=== PATIENT | female | born 1940 | race Caucasian/White ===

== ENCOUNTER 2020-04-30 11:14 | Day surgery (SDC) | payer MEDICARE, SELFPAY ==
--- NOTE | 2020-04-30 12:00 | RAD_ITS ---
CLINICAL HISTORY: Female, 80 years old. Lower back pain PROCEDURE: EPIDUROGRAM - Caudal block FLUOROSCOPY TIME (if supplied): (0:12) minutes. 2 Images. TECHNIQUE: Under fluoroscopic guidance using sterile technique and after infiltration of the skin and subcutis soft tissues with 10 mL lidocaine 1% a 22-gauge needle is introduced in the lumbar epidural space at L4-5, 1 mL of air injected in the epidural space to ensure needle position then a mixture containing 80 mg of Depo-Medrol mixed with 3 mL lidocaine 0.25% were injected in the lumbar epidural space. RAD/Fluor Guidance for Spine Inj IMPRESSION: Successful lumbar epidural steroid injection under fluoroscopic guidance. Electronically Signed: Debi Torres, at 12:47 EDT Tel , Service support ,
[2020-04-30 12:10] VITALS: BP 150/86; PULSE 93; RESP 16; TEMP 36.4; O2SAT 99; BMI 27.3
[2020-04-30] MEDS: Lactated Ringers 1,000 ML 100 ML IV (12:30)
[2020-04-30] MEDS: Bupivacaine 0.25% 30 ML Vial (12:40)
[2020-04-30] MEDS: 0.9% Normal Saline (Pres. free 10 ML Vial (12:40)
[2020-04-30] MEDS: MethylPREDNISolone Acetate 80 MG/ML Vial (12:40)
[2020-04-30 12:45] VITALS: BP 117/68; BP 150/86; PULSE 77; RESP 16; TEMP 37; O2SAT 97
[2020-04-30 12:50] VITALS: BP 117/68; BP 150/86; PULSE 75; RESP 16; O2SAT 97
[2020-04-30 12:55] VITALS: BP 139/71; BP 150/86; PULSE 77; RESP 16; O2SAT 97
[2020-04-30 13:00] VITALS: BP 134/77; BP 150/86; PULSE 66; RESP 16; O2SAT 99
[2020-04-30 13:20] VITALS: BP 150/86
--- NOTE | 2020-04-30 17:19 | OP.PCM_ITS ---
Report of Operation Date of Procedure: 04/30/20 Description of Surgical Findings:: PREOPERATIVE DIAGNOSIS: Lumbosacral radiculopathy, lumbosacral degenerative disc disease, lumbosacral spinal stenosis POSTOPERATIVE DIAGNOSIS: Lumbosacral radiculopathy, lumbosacral degenerative disc disease, lumbosacral spinal stenosis PROCEDURE PERFORMED: Diagnostic/therapeutic caudal epidural steroid injection. ANESTHESIA: MAC. BLOOD LOSS: Minimal. COMPLICATIONS: None. DESCRIPTION OF PROCEDURE: History and physical of today was reviewed. Risks and benefits of the procedure were explained. The patient understood and agreed to proceed. Informed consent was obtained. IV inserted per routine protocol. The patient was taken to the operating room and placed in the prone position with a pillow positioned underneath the abdomen. The lower back and tailbone area was prepped and draped in a sterile fashion using iodine x3. Under fluoroscopy guidance on a lateral view, the caudal space was identified. The skin and subcutaneous tissue was anesthetized with approximately 3 mL of 1% lidocaine using a 25-gauge regular needle. Under direct visualization with fluoroscopy, using a 22-gauge 3-1/2-inch spinal needle, the needle was advanced via the skin through the sacral hiatus. The tip of the needle was passed through the sacrococcygeal ligament and advanced to approximately S4 area. After negative aspiration of blood or CSF, a total of 3 mL of contrast was injected to confirm correct placement of the needle as well as cephalad spread. The spread was followed to approximately L5 area. After confirmation on AP as well as lateral view and repeated negative aspiration, a total of 15 mL of preservative-free 0.125% Marcaine with 80 mg of Depo-Medrol was injected easily. The needle was then removed intact. The patient experienced no sign or symptoms of intrathecal or intravascular injection. The patient experienced no paresthesia. The procedure was completed without any apparent difficulty or any complications. The patient appeared to tolerate it well. ASSESSMENT AND PLAN: This is a 80-year-old female with lumbosacral radiculopathy, lumbosacral degene rative disc disease, lumbosacral spinal stenosis status post diagnostic/therapeutic caudal epidural steroid injection, patient will continue her current medications, patient will follow approximately 2 weeks for reevaluation.
== END 2020-04-30 13:39 | disposition home or self-care (01) ==
LOC: SDC 11:20 → AC 11:36
PROVIDERS: Referring Provider Anesthesiology Pain Medicine; Visit Provider Anesthesiology Pain Medicine
PROC: 3E0S3BZ Introduction of Anesthetic Agent into Epidural Space, Percutaneous Approach (ICD-10-PCS; CPT 62282; principal; 2020-04-30 12:45)
DX: M47.27 Other spondylosis with radiculopathy, lumbosacral region (principal); M51.17 Intervertebral disc disorders with radiculopathy, lumbosacral region; M48.07 Spinal stenosis, lumbosacral region; I10 Essential (primary) hypertension; K58.9 Irritable bowel syndrome, unspecified; I25.10 Atherosclerotic heart disease of native coronary artery without angina pectoris; E78.00 Pure hypercholesterolemia, unspecified; Z78.0 Asymptomatic menopausal state; Z79.899 Other long term (current) drug therapy
CPT/HCPCS: 01992; 62323; 64483; 77003; J7120; J3490

== ENCOUNTER 2020-06-11 07:39 | Day surgery (SDC) | payer MEDICARE, SELFPAY ==
[2020-06-11 08:04] VITALS: BP 163/88; PULSE 82; RESP 16; TEMP 36.8; O2SAT 98; BMI 27.6
[2020-06-11] MEDS: Lactated Ringers 1,000 ML 100 ML IV (08:18)
--- NOTE | 2020-06-11 08:43 | RAD_ITS ---
PROCEDURE: Bilateral L3-S1 facet joint steroid injections. DATE OF EXAMINATION: 06/11/2020. INDICATION: Female, 80 years old. Chronic low back pain. FLUOROSCOPY TIME (if supplied): (27 seconds) minutes/seconds. 8 intraoperative images were obtained. Intraoperative imaging provided for bilateral L3-S1 facet steroid injections. RAD/L/S Spine w Bend Min 6 Vw IMPRESSION: Intraoperative imaging provided for bilateral L3-S1 facet steroid injections. Electronically Signed: Nehemias Gonzáles, at 9:23 EST , Service support ,
[2020-06-11] MEDS: MethylPREDNISolone Acetate 40 MG/ML Vial IM (08:49)
[2020-06-11] MEDS: Bupivacaine 0.25% 30 ML Vial (08:49)
[2020-06-11 08:59] VITALS: BP 163/88; BP 91/49; PULSE 72; RESP 16; TEMP 36.4; O2SAT 100
[2020-06-11 09:05] VITALS: BP 117/78; BP 163/88; PULSE 82; RESP 16; O2SAT 98
[2020-06-11 09:10] VITALS: BP 119/82; BP 163/88; PULSE 73; RESP 16; O2SAT 99
[2020-06-11 09:12] VITALS: BP 132/81; BP 163/88; PULSE 73; RESP 16; O2SAT 100
[2020-06-11 09:43] VITALS: BP 163/88
--- NOTE | 2020-06-11 11:59 | PCM.OPRPT ---
Report of Operation Date of Procedure: 06/11/20 Description of Surgical Findings:: PREOPERATIVE DIAGNOSIS: Lumbosacral spondylosis, lumbosacral degenerative disc disease, lumbar facet arthropathy POSTOPERATIVE DIAGNOSIS: Lumbosacral spondylosis, lumbosacral degenerative disc disease, lumbar facet arthropathy PROCEDURE PERFORMED: Bilateral lumbar facet steroid injection, L3, L4, L5, and S1. ANESTHESIA: MAC. BLOOD LOSS: Minimal. COMPLICATIONS: None. DESCRIPTION OF PROCEDURE: History and physical of today was reviewed. Risks and benefits of the procedure were explained. The patient understood and agreed to proceed. Informed consent was obtained. IV inserted per routine protocol. The patient was taken to the operating room and placed in the prone position with a pillow positioned underneath the abdomen. The right side of her lower back was prepped and draped in a sterile fashion using iodine x3. Under fluoroscopy on oblique view, the L3 through S1 vertebral bodies were visualized. The skin and subcutaneous tissue was anesthetized with approximately 5 mL of 1% lidocaine using a 25-gauge regular needle. Under direct visualization with fluoroscopy, at approximately 25-degree angle starting on the right L3, ending on the left L3, passing through the L4 and L5 bilaterally, using a 22-gauge 3-1/2-inch spinal needle, the needle was advanced via the skin. The tip of the needle was maneuvered and directed towards the superior medial gutter of the transverse process at the vicinity of the medial branch. Once tip of the needle was in contact with the bone, the needle was pulled approximately 2 mm off the bone. After negative aspiration of blood or CSF and confirmation on AP as well as oblique view, a total of 16 mL of preservative-free 0.25% Marcaine with 80 mg of Depo-Medrol was injected in divided doses between those 8 levels. The needles were then removed intact. The patient experienced no sign or symptoms of intrathecal or intravascular injection. The patient experienced no paresthesia. The procedure was completed without any apparent difficulty or any complications. The patient appeared to tolerate it well. ASSESSMENT AND PLAN: This is a 80 year-old female with lumbosacral spondylosis, lumbosacral degenerative disc disease, lumbar facet arthropathy status post bilateral lumbar facet steroid injection L3-S1, patient will continue her current medications, patient will follow in approximately 2 weeks for reevaluation.
== END 2020-06-11 09:51 | disposition home or self-care (01) ==
LOC: SDC 07:39 → AC 07:39
PROVIDERS: Referring Provider Anesthesiology Pain Medicine; Visit Provider Anesthesiology Pain Medicine
PROC: 3E0T3BZ Introduction of Anesthetic Agent into Peripheral Nerves and Plexi, Percutaneous Approach (ICD-10-PCS; CPT 64493; principal; 2020-06-11 09:10)
DX: M47.817 Spondylosis without myelopathy or radiculopathy, lumbosacral region (principal); M51.37 Other intervertebral disc degeneration, lumbosacral region; M46.96 Unspecified inflammatory spondylopathy, lumbar region; M48.07 Spinal stenosis, lumbosacral region; G89.29 Other chronic pain; I25.10 Atherosclerotic heart disease of native coronary artery without angina pectoris; I10 Essential (primary) hypertension; E78.00 Pure hypercholesterolemia, unspecified; K21.9 Gastro-esophageal reflux disease without esophagitis; K58.9 Irritable bowel syndrome, unspecified; Z79.899 Other long term (current) drug therapy
CPT/HCPCS: 64493; 64494; 64495; 64483; 72114; J7120

== ENCOUNTER 2020-07-30 08:43 | Day surgery (SDC) | payer MEDICARE, SELFPAY ==
[2020-07-30 09:11] VITALS: BP 149/81; PULSE 84; RESP 16; TEMP 37.1; O2SAT 100; BMI 27.8
[2020-07-30] MEDS: Lactated Ringers 1,000 ML 75 ML IV (09:48)
--- NOTE | 2020-07-30 10:00 | RAD_ITS ---
PROCEDURE: Bilateral L3 S1 facet joint injection. DATE OF EXAMINATION: 07/30/2020. INDICATION: Female, 80 years old. Chronic low back pain. FLUOROSCOPY TIME (if supplied): (17.6secs) . 8 intraoperative images were obtained. RAD/L/S Spine w Bend Min 6 Vw IMPRESSION: Intraoperative imaging was provided for bilateral L3 S1 facet joint block. Electronically Signed: Nehemias Gonzáles, at 12:32 EST , Service support ,
[2020-07-30] MEDS: MethylPREDNISolone Acetate 40 MG/ML Vial IM (10:28)
[2020-07-30] MEDS: Lidocaine 1% (5 ml sdv) 5 ML Vial (10:29)
[2020-07-30] MEDS: Bupivacaine 0.25% 30 ML Vial (10:29)
[2020-07-30 10:38] VITALS: BP 116/63; BP 149/81; PULSE 69; RESP 16; TEMP 36.4; O2SAT 99
[2020-07-30 10:43] VITALS: BP 120/59; BP 149/81; PULSE 73; RESP 16; O2SAT 100
[2020-07-30 10:48] VITALS: BP 127/62; BP 149/81; PULSE 69; RESP 16; O2SAT 99
[2020-07-30 10:53] VITALS: BP 126/58; BP 149/81; PULSE 64; RESP 16; TEMP 36.2; O2SAT 100
--- NOTE | 2020-07-30 10:56 | PCM.OPRPT ---
Report of Operation Date of Procedure: 07/30/20 Description of Surgical Findings:: PREOPERATIVE DIAGNOSIS: Lumbosacral spondylosis, lumbosacral degenerative disc disease, lumbar facet arthropathy POSTOPERATIVE DIAGNOSIS: Lumbosacral spondylosis, lumbosacral degenerative disc disease, lumbar facet arthropathy PROCEDURE PERFORMED: Bilateral lumbar facet steroid injection, L3, L4, L5, and S1. ANESTHESIA: MAC. BLOOD LOSS: Minimal. COMPLICATIONS: None. DESCRIPTION OF PROCEDURE: History and physical of today was reviewed. Risks and benefits of the procedure were explained. The patient understood and agreed to proceed. Informed consent was obtained. IV inserted per routine protocol. The patient was taken to the operating room and placed in the prone position with a pillow positioned underneath the abdomen. The right side of her lower back was prepped and draped in a sterile fashion using iodine x3. Under fluoroscopy on oblique view, the L3 through S1 vertebral bodies were visualized. The skin and subcutaneous tissue was anesthetized with approximately 5 mL of 1% lidocaine using a 25-gauge regular needle. Under direct visualization with fluoroscopy, at approximately 25-degree angle starting on the right L3, ending on the left L3, passing through the L4 and L5 bilaterally, using a 22-gauge 3-1/2-inch spinal needle, the needle was advanced via the skin. The tip of the needle was maneuvered and directed towards the superior medial gutter of the transverse process at the vicinity of the medial branch. Once tip of the needle was in contact with the bone, the needle was pulled approximately 2 mm off the bone. After negative aspiration of blood or CSF and confirmation on AP as well as oblique view, a total of 16 mL of preservative-free 0.25% Marcaine with 80 mg of Depo-Medrol was injected in divided doses between those 8 levels. The needles were then removed intact. The patient experienced no sign or symptoms of intrathecal or intravascular injection. The patient experienced no paresthesia. The procedure was completed without any apparent difficulty or any complications. The patient appeared to tolerate it well. ASSESSMENT AND PLAN: This is a 80 year-old female with lumbosacral spondylosis, lumbosacral degenerative disc disease, lumbar facet arthropathy status post bilateral lumbar facet steroid injection L3-S1, patient will continue her current medications, patient will follow in approximately 2 weeks for reevaluation.
[2020-07-30 11:15] VITALS: BP 149/81
== END 2020-07-30 11:31 | disposition home or self-care (01) ==
LOC: SDC 08:45 → AC 08:45
PROVIDERS: Referring Provider Anesthesiology Pain Medicine; Visit Provider Anesthesiology Pain Medicine
PROC: 3E0T3BZ Introduction of Anesthetic Agent into Peripheral Nerves and Plexi, Percutaneous Approach (ICD-10-PCS; CPT 64493; principal; 2020-07-30 09:55)
DX: M47.27 Other spondylosis with radiculopathy, lumbosacral region (principal); M51.17 Intervertebral disc disorders with radiculopathy, lumbosacral region; M48.07 Spinal stenosis, lumbosacral region; G89.29 Other chronic pain; I25.10 Atherosclerotic heart disease of native coronary artery without angina pectoris; I10 Essential (primary) hypertension; E78.00 Pure hypercholesterolemia, unspecified; K21.9 Gastro-esophageal reflux disease without esophagitis; K58.9 Irritable bowel syndrome, unspecified; Z79.899 Other long term (current) drug therapy
CPT/HCPCS: 64493; 64494; 64495; 64483; 72114; J7120

== ENCOUNTER 2020-08-24 12:18 | Outpatient (RCR) | payer MEDICARE, SELFPAY | END 2020-08-24 23:59 | LOC: IMMUN 12:18 | PROVIDERS: Visit Provider Family Medicine | DX: Z23 Encounter for immunization (principal) | CPT/HCPCS: 0011A; 0012A; 91301 ==

== ENCOUNTER 2020-08-27 07:08 | Day surgery (SDC) | payer MEDICARE, SELFPAY ==
[2020-08-27] VITALS (7 sets, daily range): BP systolic 108–162; BP diastolic 70–95; PULSE 63–92; RESP 16; TEMP 36.2–36.7; O2SAT 97–100; BMI 23.8
[2020-08-27] MEDS: Lactated Ringers 1,000 ML 100 ML IV (07:38)
[2020-08-27] MEDS: Bupivacaine 0.25% 30 ML Vial (08:24)
[2020-08-27] MEDS: MethylPREDNISolone Acetate 40 MG/ML Vial IM (08:24)
[2020-08-27] MEDS: Lidocaine 1% (20 ml mdv) 20 ML Vial (08:25)
--- NOTE | 2020-08-27 08:45 | RAD_ITS ---
STUDY: X-RAY - LUMBAR SPINE REASON FOR EXAM: Female, 80 years old. LUMBAR RFA L3-S1 TECHNIQUE: Four intraoperative view(s) of the lumbar spine were obtained. COMPARISON: None FINDINGS: Intraoperative imaging provided for right L3-S1 radiofrequency ablation. RAD/L/S Spine Min 4 Views IMPRESSION: Intraoperative imaging provided for right L3-S1 radiofrequency ablation. Electronically Signed: Nehemias Gonzáles MD at 9:33 EST , Service support ,
--- NOTE | 2020-08-27 10:12 | PCM.OPRPT ---
Report of Operation Date of Procedure: 08/27/20 Description of Surgical Findings:: PREOPERATIVE DIAGNOSIS: Lumbosacral spondylosis, lumbosacral degenerative disc disease, lumbar facet arthropathy POSTOPERATIVE DIAGNOSIS: Lumbosacral spondylosis, lumbosacral degenerative disc disease, lumbar facet arthropathy PROCEDURE PERFORMED: Right-sided lumbar radiofrequency ablation of the medial branch at L3, L4, L5, and S1. ANESTHESIA: MAC. BLOOD LOSS: Minimal. COMPLICATIONS: None. DESCRIPTION OF PROCEDURE: History and physical of today was reviewed. Risks and benefits of the procedure were explained. The patient understood and agreed to proceed. Informed consent was obtained. IV inserted per routine protocol. The patient was taken to the operating room and placed in the prone position with a pillow positioned underneath the abdomen. The right side of her lower back was prepped and draped in a sterile fashion using iodine x3. Under fluoroscopy guidance in an oblique view, the L3 through S1 vertebral bodies were visualized. The skin and subcutaneous tissue was anesthetized with approximately 10 mL of 1% lidocaine using a 25-gauge regular needle. Under direct visualization on fluoroscopy at approximately 25-degree angle, starting on the right L3, ending on the right S1, passing through the L4 and L5, using a 20-gauge 15-cm with a 10-mm curved active-tip radiofrequency ablation needle, the needle was passed through the skin. The tip of the needle was maneuvered and directed towards the superior medial gutter of the transverse process at the vicinity of the medial branch. Once the tip of the needle was in contact with the bone, the needle was pulled approximately 2 mm off the bone. The stylette of each needle was then removed. After negative aspiration of blood or CSF and confirmation on AP, oblique as well as lateral view, the radiofrequency ablation probe was then inserted at each level. Impedance was then recorded at L3 to be 232 ohm, at L4 to be 211 ohm, at L5 to be 227 ohm, and at S1 to be 314 ohm. Motor evoked potential was then initiated to 1.5 volt without any motor response at each corresponding level. The probe was then removed intact and a total of 6 mL of preservative-free 1% lidocaine was injected in divided doses between those four levels after negative aspiration of blood or CSF. The radiofrequency ablation probe was then reinserted. After confirmation on AP, oblique as well as lateral view, radiofrequency ablation was then initiated to 80 degree Celsius for 90 second at each level. Once concluded, the probe was then removed intact. A total of 6 mL of preservative-free 0.25% Marcaine with 40 mg of Depo-Medrol was injected in divided doses between those four levels. The needles were then removed intact. The patient experienced no sign or symptoms of intrathecal or intravascular injection. The patient experienced no paresthesia. The procedure was completed without any apparent difficulty or any complications. The patient appeared to tolerate it well. Sensory as well as motor exam was unchanged from prior to the procedure. ASSESSMENT AND PLAN: This is an 80-year-old female with lumbosacral spondylosis, lumbosacral degenerative disc disease, lumbar facet arthropathy status post right-sided lumbar radiofrequency ablation of the medial branch L3-S1, patient will continue her current medications, patient will follow in approximately 2 weeks for reevaluation.
== END 2020-08-27 09:41 | disposition home or self-care (01) ==
LOC: SDC 07:08 → AC 07:09
PROVIDERS: Referring Provider Anesthesiology Pain Medicine; Visit Provider Anesthesiology Pain Medicine
PROC: (CPT 64635; principal; 2020-08-27 08:25)
DX: M47.817 Spondylosis without myelopathy or radiculopathy, lumbosacral region (principal); M51.37 Other intervertebral disc degeneration, lumbosacral region; M46.96 Unspecified inflammatory spondylopathy, lumbar region; I25.10 Atherosclerotic heart disease of native coronary artery without angina pectoris; I10 Essential (primary) hypertension; E78.00 Pure hypercholesterolemia, unspecified; K21.9 Gastro-esophageal reflux disease without esophagitis; Z79.899 Other long term (current) drug therapy
CPT/HCPCS: 01992; 64635; 64636; 72110; 76000; J7120

== ENCOUNTER 2020-10-08 08:06 | Day surgery (SDC) | payer MEDICARE, SELFPAY ==
[2020-08-27 07:33] VITALS: BMI 23.8
[2020-10-08] VITALS (7 sets, daily range): BP systolic 117–153; BP diastolic 69–82; PULSE 58–76; RESP 16; TEMP 36.2–36.4; O2SAT 99–100; BMI 27.4
--- NOTE | 2020-10-08 09:28 | RAD_ITS ---
PROCEDURE: Radiofrequency ablation of the left L3-S1 levels. DATE OF EXAMINATION: 10/08/2020. INDICATION: Female, 80 years old. Chronic back pain. FLUOROSCOPY TIME (if supplied): (13 seconds) minutes/seconds. 7 intraoperative images were obtained. Intraoperative imaging provided for left L3 S1 facet joint radiofrequency ablation. RAD/Lumbar Spine 2 or 3 Views IMPRESSION: Intraoperative images are provided for left L3-S1 facet joint radiofrequency ablation. Electronically Signed: Nehemias Gonzáles MD at 13:51 EDT , Service support ,
[2020-10-08] MEDS: Lidocaine 1% (30 ml sdv) 30 ML Vial (09:38)
[2020-10-08] MEDS: Bupivacaine 0.25% 30 ML Vial (09:40)
[2020-10-08] MEDS: MethylPREDNISolone Acetate 80 MG/ML Vial (09:40)
--- NOTE | 2020-10-08 12:21 | PCM.OPRPT ---
Report of Operation Date of Procedure: 10/08/20 Description of Surgical Findings:: PREOPERATIVE DIAGNOSIS: Lumbosacral spondylosis, lumbosacral degenerative disc disease, lumbar facet arthropathy POSTOPERATIVE DIAGNOSIS: Lumbosacral spondylosis, lumbosacral degenerative disc disease, lumbar facet arthropathy PROCEDURE PERFORMED: Left-sided radiofrequency lumbar ablation of the medial branch at L3, L4, L5, and S1. ANESTHESIA: MAC. BLOOD LOSS: Minimal. COMPLICATIONS: None. DESCRIPTION OF PROCEDURE: History and physical of today was reviewed. Risks and benefits of the procedure were explained. The patient understood and agreed to proceed. Informed consent was obtained. IV inserted per routine protocol. The patient was taken to the operating room and placed in the prone position with a pillow positioned underneath the abdomen. The left side of her lower back was prepped and draped in a sterile fashion using iodine x3. Under fluoroscopy guidance in an oblique view, the L3 through S1 vertebral bodies were visualized. The skin and subcutaneous tissue was anesthetized with approximately 10 mL of 1% lidocaine using a 25-gauge regular needle. Under direct visualization on fluoroscopy at approximately 25-degree angle, starting on the left L3, ending on the left S1, passing through the L4 and L5, using a 20-gauge 15-cm with a 10-mm curved active-tip radiofrequency ablation needle, the needle was passed through the skin. The tip of the needle was maneuvered and directed towards the superior medial gutter of the transverse process at the vicinity of the medial branch. Once the tip of the needle was in contact with the bone, the needle was pulled approximately 2 mm off the bone. The stylette of each needle was then removed. After negative aspiration of blood or CSF and confirmation on AP, oblique as well as lateral view, the radiofrequency ablation probe was then inserted at each level. Impedance was then recorded at L3 to be 231 ohm, at L4 to be 229 ohm, at L5 to be 262 ohm, and at S1 to be 259 ohm. Motor evoked potential was then initiated to 1.5 volt without any motor response at each corresponding level. The probe was then removed intact and a total of 6 mL of preservative-free 1% lidocaine was injected in divided doses between those four levels after negative aspiration of blood or CSF. The radiofrequency ablation probe was then reinserted. After confirmation on AP, oblique as well as lateral view, radiofrequency ablation was then initiated to 80 degree Celsius for 90 second at each level. Once concluded, the probe was then removed intact. A total of 6 mL of preservative-free 0.25% Marcaine with 40 mg of Depo-Medrol was injected in divided doses between those four levels. The needles were then removed intact. The patient experienced no sign or symptoms of intrathecal or intravascular injection. The patient experienced no paresthesia. The procedure was completed without any apparent difficulty or any complications. The patient appeared to tolerate it well. Sensory as well as motor exam was unchanged from prior to the procedure. ASSESSMENT AND PLAN: This is a 80-year-old female with lumbosacral spondylosis, lumbosacral degenerative disc disease, lumbar facet arthropathy status post left-sided lumbar radiofrequency ablation of the medial branch L3-S1, patient will continue her current medications, patient will follow in approximately 2 weeks for reevaluation.
== END 2020-10-08 11:18 | disposition home or self-care (01) ==
LOC: SDC 08:07 → AC 08:07
PROVIDERS: Referring Provider Anesthesiology Pain Medicine; Visit Provider Anesthesiology Pain Medicine
PROC: (CPT 64635; principal; 2020-10-08 09:25)
DX: M51.17 Intervertebral disc disorders with radiculopathy, lumbosacral region (principal); M47.27 Other spondylosis with radiculopathy, lumbosacral region; M48.07 Spinal stenosis, lumbosacral region; M43.16 Spondylolisthesis, lumbar region; I25.10 Atherosclerotic heart disease of native coronary artery without angina pectoris; I10 Essential (primary) hypertension; K21.9 Gastro-esophageal reflux disease without esophagitis; E78.00 Pure hypercholesterolemia, unspecified; Z79.899 Other long term (current) drug therapy
CPT/HCPCS: 64635; 64636; 72100; 76000; J7120

== ENCOUNTER 2022-01-13 05:46 | Day surgery (SDC) | payer MEDICARE, SELFPAY ==
[2022-01-13] VITALS (7 sets, daily range): BP systolic 109–147; BP diastolic 61–86; PULSE 62–83; RESP 16; TEMP 36–36.6; O2SAT 96–100; BMI 26.2
[2022-01-13] MEDS: Lactated Ringers 1,000 ML 15 ML IV (06:48)
--- NOTE | 2022-01-13 07:35 | RAD_ITS ---
EXAM: XR LUMBOSACRAL SPINE, 2 OR 3 VIEWS CLINICAL INDICATION: RADIO FREQ ABLATION L4-S1, RIGHT -- 12.6 SEC -- 3.9 MGY TECHNIQUE: Frontal and lateral views of the lumbar spine and sacrum. This report was created using [employer] report [employer] technology. COMPARISON: None. FINDINGS: Total of 9 fluoroscopic views of the lumbar spine obtained during localization for spinal injection Total fluoroscopy 12.6 seconds. Radiation dose 3.9 MGY. RAD/Lumbar Spine 2 or 3 Views IMPRESSION: As above. Electronically Signed: Mikey Agrawal MD at 16:52 EDT ,
[2022-01-13] MEDS: Bupivacaine Mpf 0.5% 30 ML VIAL (07:42)
[2022-01-13] MEDS: Lidocaine 1% (50 ml mdv) 50 ML Vial (07:42)
[2022-01-13] MEDS: 0.9% Normal Saline (Pres. free 10 ML Vial (07:42)
[2022-01-13] MEDS: MethylPREDNISolone Acetate 40 MG/ML Vial IM (07:50)
--- NOTE | 2022-01-13 15:34 | PCM.OPRPT ---
Report of Operation Date of Procedure: 01/13/22 Pre-Operative Diagnosis: Lumbosacral spondylosis, lumbosacral degenerative disc disease, lumbar facet arthropathy Post-Operative Diagnosis: Lumbosacral spondylosis, lumbosacral degenerative disc disease, lumbar facet arthropathy Surgery/Procedure Performed:: Right-sided lumbar radiofrequency ablation of the medial branch L4, L5, S1 Type of Anesthesia: MAC Estimated Blood Loss (mL): Minimal Description of Procedure: History and physical today was reviewed. Risks and benefits of procedure explained. The patient understood, agreed to the procedure and informed consent was obtained. IV inserted per routine protocol. The patient was taken to the operating room, placed in the prone position with a pillow positioned underneath the abdomen. The right side of the lower back was prepped and draped in a sterile fashion using iodine x 3. Under fluoroscopy guidance, on an oblique view, the L3 through S1 vertebral bodies were visualized. The skin and subcutaneous tissue was anesthetized with approximately 10 mL of 1% lidocaine using a 25-gauge regular needle. Under direct visualization with fluoroscopy at approximately 25-degree angle, starting on the right L3, ending on the right S1 passing through the L4-L5 using a 20-gauge 15 cm with a 10 mm curved active tip radiofrequency ablation needle the needle passed through the skin. The tip of the needle was maneuvered and directed towards the superior and medial gutter of the transverse process at the vicinity of the medial branch. Once the tip of the needle was in contact with the bone, the needle pulled approximately 2 mm up the bone. The stylet of each needle was then removed. After negative aspiration of blood with CSF and confirmation of AP as well as oblique view, radiofrequency ablation probe was then inserted at each level. Impedance was then recorded at L3 to be 240, at L4 287, at L5 208, at S1 277 ohm. Motor-evoked potential was then initiated to 1.5 volt without any motor response at each corresponding level. The probe was then removed intact and a total of 6 mL preservative-free 1% lidocaine was injected in divided doses between those 4 levels after negative aspiration of blood with CSF. The radiofrequency ablation probe was then reinserted after confirmation of AP, oblique as well as lateral view. Radiofrequency ablation was then initiated to 80 degrees Celsius for 90 seconds at each level. Once concluded, the probe was then removed intact and a total of 6 mL of preservative-free 0.25% Marcaine with 40 mg Depo-Medrol was injected in divided doses between those 4 levels. The needles were then removed intact. The patient experienced no signs or symptoms of intrathecal, intravascular injection. The patient experienced no paraesthesia. The procedure was completed without any apparent difficulty, any complication. The patient appeared to tolerate well. Sensory as well as motor exam was unchanged from prior to procedure. ASSESSMENT AND PLAN: This is a 81-year-old female with lumbosacral spondylosis, lumbosacral degenerative disc disease, lumbar facet arthropathy, status post right-sided radiofrequency ablation of the medial branch L3 through S1. The patient will continue her current medications. The patient will follow up in approximately 2 weeks for reevaluation. Complications None
== END 2022-01-13 09:02 | disposition home or self-care (01) ==
LOC: SDC 05:48 → AC 05:49
PROVIDERS: Referring Provider Anesthesiology Pain Medicine; Visit Provider Anesthesiology Pain Medicine
PROC: (CPT 64635; principal; 2022-01-13 07:15)
DX: M47.817 Spondylosis without myelopathy or radiculopathy, lumbosacral region (principal); M46.96 Unspecified inflammatory spondylopathy, lumbar region; M51.37 Other intervertebral disc degeneration, lumbosacral region; I10 Essential (primary) hypertension; Z79.899 Other long term (current) drug therapy
CPT/HCPCS: 64635; 01992; 72100; 76000; J7120; J3490

== ENCOUNTER 2022-05-12 07:11 | Day surgery (SDC) | payer MEDICARE, SELFPAY ==
[2022-05-12] VITALS (7 sets, daily range): BP systolic 101–148; BP diastolic 58–99; PULSE 65–83; RESP 12–16; TEMP 36.3–36.9; O2SAT 91–100; BMI 28.0
--- NOTE | 2022-05-12 07:40 | RAD_ITS ---
PROCEDURE: Caudal block. DATE OF EXAMINATION: 05/12/2022. INDICATION: Female, 82 years old. Chronic low back pain. FLUOROSCOPY TIME (if supplied): (3 seconds) minutes/seconds. One image was submitted. RAD/Fluor Guidance for Spine Inj IMPRESSION: Intraoperative imaging provided for caudal block. Electronically Signed: Nehemias Gonzáles MD at 9:48 EDT ,
[2022-05-12] MEDS: Lactated Ringers 1,000 ML 15 ML IV (07:49)
[2022-05-12] MEDS: Lidocaine 1% (5 ml sdv) 5 ML Vial (09:13)
[2022-05-12] MEDS: Bupivacaine 0.25% 30 ML Vial OPERA.SITE (09:13)
[2022-05-12] MEDS: MethylPREDNISolone Acetate 80 MG/ML Vial (09:13)
[2022-05-12] MEDS: 0.9% Normal Saline (Pres. free 10 ML Vial (09:13)
--- NOTE | 2022-05-12 10:13 | OP.PCM_ITS ---
Report of Operation Date of Procedure: 05/12/22 Pre-Operative Diagnosis: Lumbosacral radiculopathy, lumbosacral degenerative di sc disease, lumbosacral spinal stenosis Post-Operative Diagnosis: Lumbosacral radiculopathy, lumbosacral degenerative disc disease, lumbosacral spinal stenosis Surgery/Procedure Performed:: Caudal epidural steroid injection under fluoroscopic guidance Type of Anesthesia: MAC Estimated Blood Loss (mL): Minimal Description of Procedure: DESCRIPTION OF PROCEDURE: History and physical of today was reviewed. Risks and benefits of the procedure were explained. The patient understood and agreed to proceed. Informed consent was obtained. IV inserted per routine protocol. The patient was taken to the operating room and placed in the prone position with a pillow positioned underneath the abdomen. The lower back and tailbone area was prepped and draped in a sterile fashion using iodine x3. Under fluoroscopy guidance on a lateral view, the caudal space was identified. The skin and subcutaneous tissue was anesthetized with approximately 3 mL of 1% lidocaine using a 25-gauge regular needle. Under direct visualization with fluoroscopy, using a 22-gauge 3-1/2-inch spinal needle, the needle was advanced via the skin through the sacral hiatus. The tip of the needle was passed through the sacrococcygeal ligament and advanced to approximately S4 area. After negative aspiration of blood or CSF, a total of 3 mL of contrast was injected to confirm correct placement of the needle as well as cephalad spread. The spread was followed to approximately L5 area. After confirmation on AP as well as lateral view and repeated negative aspiration, a total of 15 mL of preservative-free 0.125% Marcaine with 80 mg of Depo-Medrol was injected easily. The needle was then removed intact. The patient experienced no sign or symptoms of intrathecal or intravascular injection. The patient experienced no paresthesia. The procedure was completed without any apparent difficulty or any complications. The patient appeared to tolerate it well. ASSESSMENT AND PLAN: This is a 82-year-old female with lumbosacral radiculopathy, lumbosacral degenerative disc disease, lumbosacral spinal stenosis status post caudal epidural steroid injection, patient will continue her current medications, patient will follow in approximately 2 weeks for reevaluation. Complications None
--- NOTE | 2022-05-12 10:20 | SUR.PHASEII ---
pt complaint of numbness in b/l toes post procedure; dr. farr made aware. no new orders.
--- NOTE | 2022-05-12 11:13 | SUR.PHASEII ---
pt cont to have weakness and numbness to b/l legs/feet- dr alejo made aware and came to see pt and talked with pt. he said can last up to 6 hours . said to have pt stay until able to walk and be more stable
== END 2022-05-12 11:54 | disposition home or self-care (01) ==
LOC: SDC 07:11 → AC 07:13
PROVIDERS: Referring Provider Anesthesiology Pain Medicine; Visit Provider Anesthesiology Pain Medicine
PROC: 3E0S3BZ Introduction of Anesthetic Agent into Epidural Space, Percutaneous Approach (ICD-10-PCS; CPT 62282; principal; 2022-05-12 08:35)
DX: M51.17 Intervertebral disc disorders with radiculopathy, lumbosacral region (principal); M48.07 Spinal stenosis, lumbosacral region; G89.29 Other chronic pain; I10 Essential (primary) hypertension; Z79.899 Other long term (current) drug therapy
CPT/HCPCS: 62323; 01992; 64483; 77003; J7120; J3490

== ENCOUNTER 2022-06-30 06:55 | Day surgery (SDC) | payer MEDICARE, SELFPAY ==
[2022-06-30] VITALS (7 sets, daily range): BP systolic 104–163; BP diastolic 64–98; PULSE 71–97; RESP 16; TEMP 36.3–36.9; O2SAT 96–100; BMI 28.0
[2022-06-30] MEDS: Lactated Ringers 1,000 ML 15 ML IV (07:29)
--- NOTE | 2022-06-30 07:30 | RAD_ITS ---
PROCEDURE: Left L3-S1 radiofrequency ablation. DATE OF EXAMINATION: 06/30/2022. INDICATION: Female, 82 years old. Chronic low back pain. FLUOROSCOPY TIME (if supplied): (13 seconds) minutes/seconds. 7 images were submitted. RAD/Lumbar Spine 2 or 3 Views IMPRESSION: Intraoperative imaging provided for left L3-S1 radiofrequency ablation. Electronically Signed: Nehemias Gonzáles MD at 15:00 EST ,
[2022-06-30] MEDS: Lidocaine 1% (5 ml sdv) 5 ML Vial (08:51)
[2022-06-30] MEDS: MethylPREDNISolone Acetate 40 MG/ML Vial IM (08:52)
--- NOTE | 2022-06-30 09:36 | PCM.OPRPT ---
Report of Operation Date of Procedure: 06/30/22 Pre-Operative Diagnosis: Lumbosacral spondylosis, lumbosacral degenerative disc disease, lumbar facet arthropathy Post-Operative Diagnosis: Lumbosacral spondylosis, lumbosacral degenerative disc disease, lumbar facet arthropathy Surgery/Procedure Performed:: Left-sided lumbar radiofrequency ablation of the medial branch L4, L5, S1 Type of Anesthesia: MAC Estimated Blood Loss (mL): Minimal Description of Procedure: History and physical today was reviewed. Risks and benefits of procedure explained. The patient understood, agreed to the procedure and informed consent was obtained. IV inserted per routine protocol. The patient was taken to the operating room, placed in the prone position with a pillow positioned underneath the abdomen. The left side of the lower back was prepped and draped in a sterile fashion using iodine x 3. Under fluoroscopy guidance, on an oblique view, the L3 through S1 vertebral bodies were visualized. The skin and subcutaneous tissue was anesthetized with approximately 10 mL of 1% lidocaine using a 25-gauge regular needle. Under direct visualization with fluoroscopy at approximately 25-degree angle, starting on the left L3, ending on the left S1 passing through the L4-L5 using a 20-gauge 15 cm with a 10 mm curved active tip radiofrequency ablation needle the needle passed through the skin. The tip of the needle was maneuvered and directed towards the superior and medial gutter of the transverse process at the vicinity of the medial branch. Once the tip of the needle was in contact with the bone, the needle pulled approximately 2 mm up the bone. The stylet of each needle was then removed. After negative aspiration of blood with CSF and confirmation of AP as well as oblique view, radiofrequency ablation probe was then inserted at each level. Impedance was then recorded at L3 to be 276, at L4 295, at L5 281, at S1 223 ohm. Motor-evoked potential was then initiated to 1.5 volt without any motor response at each corresponding level. The probe was then removed intact and a total of 6 mL preservative-free 1% lidocaine was injected in divided doses between those 4 levels after negative aspiration of blood with CSF. The radiofrequency ablation probe was then reinserted after confirmation of AP, oblique as well as lateral view. Radiofrequency ablation was then initiated to 80 degrees Celsius for 90 seconds at each level. Once concluded, the probe was then removed intact and a total of 6 mL of preservative-free 0.25% Marcaine with 40 mg Depo-Medrol was injected in divided doses between those 4 levels. The needles were then removed intact. The patient experienced no signs or symptoms of intrathecal, intravascular injection. The patient experienced no paraesthesia. The procedure was completed without any apparent difficulty, any complication. The patient appeared to tolerate well. Sensory as well as motor exam was unchanged from prior to procedure. ASSESSMENT AND PLAN: This is a 82-year-old female with lumbosacral spondylosis, lumbosacral degenerative disc disease, lumbar facet arthropathy, status post left-sided lumbar radiofrequency ablation of the medial branch L4 through S1. The patient will continue her current medications. The patient will follow up in approximately 2 weeks for reevaluation. Complications None
== END 2022-06-30 10:06 | disposition home or self-care (01) ==
LOC: SDC 06:59 → AC 06:59
PROVIDERS: Referring Provider Anesthesiology Pain Medicine; Visit Provider Anesthesiology Pain Medicine
PROC: (CPT 64635; principal; 2022-06-30 08:25)
DX: M47.816 Spondylosis without myelopathy or radiculopathy, lumbar region (principal); M51.37 Other intervertebral disc degeneration, lumbosacral region; M47.817 Spondylosis without myelopathy or radiculopathy, lumbosacral region; I10 Essential (primary) hypertension
CPT/HCPCS: 64635; 72100; 76000; J7120

== ENCOUNTER 2022-10-27 05:53 | Day surgery (SDC) | payer MEDICARE, SELFPAY ==
[2022-10-27 06:26] VITALS: BP 150/66; PULSE 68; RESP 18; TEMP 36.3; O2SAT 100; BMI 26.9
[2022-10-27] MEDS: Lactated Ringers 1,000 ML 15 ML IV (06:33)
[2022-10-27] MEDS: MethylPREDNISolone Acetate 80 MG/ML Vial (07:41)
--- NOTE | 2022-10-27 07:41 | RAD_ITS ---
STUDY: RIGHT L4-L5 AND L5-S1 LUMBAR RADIOFREQUENCY ABLATION. REASON FOR EXAM: Female, 82 years old. Lumbar radio frequency ablation L4, L5, S1 -- right FLUOROSCOPY TIME (if supplied): ( 33.3 seconds ) minutes/seconds. 10 fluoroscopic images. 6.56 mGy TECHNIQUE: Intraoperative imaging provided for right L4-L5 and L5-S1 right lumbar radiofrequency ablation. COMPARISON: None. RAD/L/S Spine Min 4 Views IMPRESSION: Intraoperative imaging provided for right L4-L5 and L5-S1 right lumbar radiofrequency ablation. Electronically Signed: Nehemias Gonzáles MD at 15:11 EDT ,
[2022-10-27] MEDS: Lidocaine 1% (30 ml sdv) 30 ML Vial (07:42)
--- NOTE | 2022-10-27 07:54 | PCM.OPRPT ---
Report of Operation Date of Procedure: 10/27/22 Pre-Operative Diagnosis: Lumbosacral spondylosis, lumbosacral degenerative disc disease, lumbar facet arthropathy Post-Operative Diagnosis: Lumbosacral spondylosis, lumbosacral degenerative disc disease, lumbar facet arthropathy Surgery/Procedure Performed:: Right-sided lumbar radiofrequency ablation of the medial branch L4, L5, S1 Type of Anesthesia: MAC Estimated Blood Loss (mL): Minimal Description of Procedure: History and physical today was reviewed. Risks and benefits of procedure explained. The patient understood, agreed to the procedure and informed consent was obtained. IV inserted per routine protocol. The patient was taken to the operating room, placed in the prone position with a pillow positioned underneath the abdomen. The right side of the lower back was prepped and draped in a sterile fashion using iodine x 3. Under fluoroscopy guidance, on an oblique view, the L3 through S1 vertebral bodies were visualized. The skin and subcutaneous tissue was anesthetized with approximately 10 mL of 1% lidocaine using a 25-gauge regular needle. Under direct visualization with fluoroscopy at approximately 25-degree angle, starting on the right L3, ending on the right S1 passing through the L4-L5 using a 20-gauge 15 cm with a 10 mm curved active tip radiofrequency ablation needle the needle passed through the skin. The tip of the needle was maneuvered and directed towards the superior and medial gutter of the transverse process at the vicinity of the medial branch. Once the tip of the needle was in contact with the bone, the needle pulled approximately 2 mm up the bone. The stylet of each needle was then removed. After negative aspiration of blood with CSF and confirmation of AP as well as oblique view, radiofrequency ablation probe was then inserted at each level. Impedance was then recorded at L3 to be 218, at L4 256, at L5 234, at S1 208 ohm. Motor-evoked potential was then initiated to 1.5 volt without any motor response at each corresponding level. The probe was then removed intact and a total of 6 mL preservative-free 1% lidocaine was injected in divided doses between those 4 levels after negative aspiration of blood with CSF. The radiofrequency ablation probe was then reinserted after confirmation of AP, oblique as well as lateral view. Radiofrequency ablation was then initiated to 80 degrees Celsius for 90 seconds at each level. Once concluded, the probe was then removed intact and a total of 6 mL of preservative-free 0.25% Marcaine with 40 mg Depo-Medrol was injected in divided doses between those 4 levels. The needles were then removed intact. The patient experienced no signs or symptoms of intrathecal, intravascular injection. The patient experienced no paraesthesia. The procedure was completed without any apparent difficulty, any complication. The patient appeared to tolerate well. Sensory as well as motor exam was unchanged from prior to procedure. ASSESSMENT AND PLAN: This is a 82-year-old female with lumbosacral spondylosis, lumbosacral degenerative disc disease, lumbar facet arthropathy, status post right-sided radiofrequency ablation of the medial branch L4 through S1. The patient will continue her current medications. The patient will follow up in approximately 2 weeks for reevaluation. Complications None
[2022-10-27 07:56] VITALS: BP 108/65; BP 150/66; PULSE 58; RESP 17; TEMP 36.1; O2SAT 97
[2022-10-27 08:00] VITALS: BP 150/66; BP 77/56; PULSE 59; RESP 16; O2SAT 100
[2022-10-27 08:05] VITALS: BP 116/69; BP 150/66; PULSE 62; RESP 16; O2SAT 100
[2022-10-27 08:10] VITALS: BP 118/62; BP 150/66; PULSE 63; RESP 16; TEMP 36.2; O2SAT 99
[2022-10-27 08:29] VITALS: BP 150/66
== END 2022-10-27 08:51 | disposition home or self-care (01) ==
LOC: SDC 05:54 → AC 05:56
PROVIDERS: Referring Provider Anesthesiology Pain Medicine; Visit Provider Anesthesiology Pain Medicine
PROC: (CPT 64635; principal; 2022-10-27 07:25)
DX: M47.817 Spondylosis without myelopathy or radiculopathy, lumbosacral region (principal); M46.96 Unspecified inflammatory spondylopathy, lumbar region; M51.37 Other intervertebral disc degeneration, lumbosacral region; I25.10 Atherosclerotic heart disease of native coronary artery without angina pectoris; I10 Essential (primary) hypertension; Z79.82 Long term (current) use of aspirin; Z79.899 Other long term (current) drug therapy
CPT/HCPCS: 64635; 64636; 72110; 76000; J7120

== ENCOUNTER 2023-02-09 07:12 | Day surgery (SDC) | payer MEDICARE, SELFPAY ==
[2023-02-09 07:52] VITALS: BP 144/88; PULSE 76; RESP 16; TEMP 36.7; O2SAT 97; BMI 26.9
[2023-02-09] MEDS: Lactated Ringers 1,000 ML 15 ML IV (08:02)
--- NOTE | 2023-02-09 08:19 | RAD_ITS ---
PROCEDURE: Lumbar radiofrequency ablation DATE OF EXAMINATION: February 09, 2023 INDICATION: Female, 83 years old. Chronic back pain. FLUOROSCOPY TIME (if supplied): 32 seconds. 7 images are submitted RAD/Lumbar Spine 2 or 3 Views IMPRESSION: Intraoperative images are provided for radiofrequency ablations on the left at L3, L4, L5, and S1. Electronically Signed: Brad Louis MD at 12:37 EDT Reading Location ID and State: [id number] / Unknown , Service support ,
[2023-02-09] MEDS: Lidocaine 1% (20 ml mdv) 20 ML Vial (08:30)
[2023-02-09] MEDS: MethylPREDNISolone Acetate 40 MG/ML Vial IM (08:30)
--- NOTE | 2023-02-09 08:41 | PCM.OPRPT ---
Report of Operation Date of Procedure: 02/09/23 Pre-Operative Diagnosis: Lumbosacral spondylosis, lumbosacral degenerative disc disease, lumbar facet arthropathy Post-Operative Diagnosis: Lumbosacral spondylosis, lumbosacral degenerative disc disease, lumbar facet arthropathy Surgery/Procedure Performed:: Left-sided lumbar radiofrequency ablation of the medial branch L4, L5, S1 Type of Anesthesia: MAC Estimated Blood Loss (mL): Minimal Description of Procedure: History and physical today was reviewed. Risks and benefits of procedure explained. The patient understood, agreed to the procedure and informed consent was obtained. IV inserted per routine protocol. The patient was taken to the operating room, placed in the prone position with a pillow positioned underneath the abdomen. The left side of the lower back was prepped and draped in a sterile fashion using iodine x 3. Under fluoroscopy guidance, on an oblique view, the L3 through S1 vertebral bodies were visualized. The skin and subcutaneous tissue was anesthetized with approximately 10 mL of 1% lidocaine using a 25-gauge regular needle. Under direct visualization with fluoroscopy at approximately 25-degree angle, starting on the left L3, ending on the left S1 passing through the L4-L5 using a 20-gauge 15 cm with a 10 mm curved active tip radiofrequency ablation needle the needle passed through the skin. The tip of the needle was maneuvered and directed towards the superior and medial gutter of the transverse process at the vicinity of the medial branch. Once the tip of the needle was in contact with the bone, the needle pulled approximately 2 mm up the bone. The stylet of each needle was then removed. After negative aspiration of blood with CSF and confirmation of AP as well as oblique view, radiofrequency ablation probe was then inserted at each level. Impedance was then recorded at L3 to be 317, at L4 291, at L5 252, at S1 217 ohm. Motor-evoked potential was then initiated to 1.5 volt without any motor response at each corresponding level. The probe was then removed intact and a total of 6 mL preservative-free 1% lidocaine was injected in divided doses between those 4 levels after negative aspiration of blood with CSF. The radiofrequency ablation probe was then reinserted after confirmation of AP, oblique as well as lateral view. Radiofrequency ablation was then initiated to 80 degrees Celsius for 90 seconds at each level. Once concluded, the probe was then removed intact and a total of 6 mL of preservative-free 0.25% Marcaine with 40 mg Depo-Medrol was injected in divided doses between those 4 levels. The needles were then removed intact. The patient experienced no signs or symptoms of intrathecal, intravascular injection. The patient experienced no paraesthesia. The procedure was completed without any apparent difficulty, any complication. The patient appeared to tolerate well. Sensory as well as motor exam was unchanged from prior to procedure. ASSESSMENT AND PLAN: This is an 83-year-old female with lumbosacral spondylosis, lumbosacral degenerative disc disease, lumbar facet arthropathy, status post left-sided lumbar radiofrequency ablation of the medial branch L4 through S1. The patient will continue her current medications. The patient will follow up in approximately 2 weeks for reevaluation. Complications None
[2023-02-09 08:45] VITALS: BP 144/76; BP 144/88; PULSE 82; RESP 20; TEMP 36.3; O2SAT 99
[2023-02-09 08:50] VITALS: BP 131/96; BP 144/88; PULSE 91; RESP 18; O2SAT 98
[2023-02-09 08:55] VITALS: BP 140/75; BP 144/88; PULSE 73; RESP 18; O2SAT 100
[2023-02-09 09:00] VITALS: BP 141/63; BP 144/88; PULSE 76; RESP 16; TEMP 36.1; O2SAT 99
[2023-02-09 09:25] VITALS: BP 144/88
== END 2023-02-09 09:40 | disposition home or self-care (01) ==
LOC: SDC 07:16 → AC 07:17
PROVIDERS: Referring Provider Anesthesiology Pain Medicine; Visit Provider Anesthesiology Pain Medicine
PROC: (CPT 64635; principal; 2023-02-09 08:55)
DX: M47.817 Spondylosis without myelopathy or radiculopathy, lumbosacral region (principal); M46.96 Unspecified inflammatory spondylopathy, lumbar region; M51.37 Other intervertebral disc degeneration, lumbosacral region; I25.10 Atherosclerotic heart disease of native coronary artery without angina pectoris; I10 Essential (primary) hypertension; Z79.899 Other long term (current) drug therapy; Z79.82 Long term (current) use of aspirin
CPT/HCPCS: 64635; 64636; 72100; 76000; J7120

== ENCOUNTER 2023-07-13 05:54 | Day surgery (SDC) | payer MEDICARE, SELFPAY ==
[2023-07-13 06:12] VITALS: BP 150/86; PULSE 71; RESP 16; TEMP 36.6; O2SAT 99; BMI 27.1
[2023-07-13] MEDS: Lactated Ringers 1,000 ML 15 ML IV (06:20)
--- NOTE | 2023-07-13 06:30 | RAD_ITS ---
PROCEDURE: Radiofrequency ablation of the right L4 S1 levels. DATE OF EXAMINATION: July 13, 2023. INDICATION: Female, 83 years old. Chronic low back pain. FLUOROSCOPY TIME (if supplied): (18 seconds.) minutes/seconds. 5.45 mGy. 8 images were submitted. RAD/Lumbar Spine 2 or 3 Views IMPRESSION: Fluoroscopic services provided for right L4-S1 radiofrequency ablation. Electronically Signed: Nehemias Gonzáles MD at 11:10 EST ,
[2023-07-13] MEDS: Lidocaine 1% (20 ml mdv) 20 ML Vial (07:45)
[2023-07-13] MEDS: MethylPREDNISolone Acetate 40 MG/ML Vial (07:45)
--- NOTE | 2023-07-13 07:59 | PCM.OPRPT ---
Report of Operation Date of Procedure: 07/13/23 Pre-Operative Diagnosis: Lumbosacral spondylosis, lumbosacral degenerative disc disease, lumbar facet arthropathy Post-Operative Diagnosis: Lumbosacral spondylosis, lumbosacral degenerative disc disease, lumbar facet arthropathy Surgery/Procedure Performed:: Right-sided lumbar radiofrequency ablation of the medial branch L4, L5, S1 Type of Anesthesia: MAC Estimated Blood Loss (mL): Minimal Description of Procedure: History and physical today was reviewed. Risks and benefits of procedure explained. The patient understood, agreed to the procedure and informed consent was obtained. IV inserted per routine protocol. The patient was taken to the operating room, placed in the prone position with a pillow positioned underneath the abdomen. The right side of the lower back was prepped and draped in a sterile fashion using iodine x 3. Under fluoroscopy guidance, on an oblique view, the L3 through S1 vertebral bodies were visualized. The skin and subcutaneous tissue was anesthetized with approximately 10 mL of 1% lidocaine using a 25-gauge regular needle. Under direct visualization with fluoroscopy at approximately 25-degree angle, starting on the right L3, ending on the right S1 passing through the L4-L5 using a 20-gauge 15 cm with a 10 mm curved active tip radiofrequency ablation needle the needle passed through the skin. The tip of the needle was maneuvered and directed towards the superior and medial gutter of the transverse process at the vicinity of the medial branch. Once the tip of the needle was in contact with the bone, the needle pulled approximately 2 mm up the bone. The stylet of each needle was then removed. After negative aspiration of blood with CSF and confirmation of AP as well as oblique view, radiofrequency ablation probe was then inserted at each level. Impedance was then recorded at L3 to be 299, at L4 264, at L5 273, at S1 378 ohm. Motor-evoked potential was then initiated to 1.5 volt without any motor response at each corresponding level. The probe was then removed intact and a total of 6 mL preservative-free 1% lidocaine was injected in divided doses between those 4 levels after negative aspiration of blood with CSF. The radiofrequency ablation probe was then reinserted after confirmation of AP, oblique as well as lateral view. Radiofrequency ablation was then initiated to 80 degrees Celsius for 90 seconds at each level. Once concluded, the probe was then removed intact and a total of 6 mL of preservative-free 0.25% Marcaine with 40 mg Depo-Medrol was injected in divided doses between those 4 levels. The needles were then removed intact. The patient experienced no signs or symptoms of intrathecal, intravascular injection. The patient experienced no paraesthesia. The procedure was completed without any apparent difficulty, any complication. The patient appeared to tolerate well. Sensory as well as motor exam was unchanged from prior to procedure. ASSESSMENT AND PLAN: This is an 83-year-old female with lumbosacral spondylosis, lumbosacral degenerative disc disease, lumbar facet arthropathy, status post right-sided radiofrequency ablation of the medial branch L4 through S1. The patient will continue her current medications. The patient will follow up in approximately 2 weeks for reevaluation. Complications None
[2023-07-13 08:00] VITALS: BP 133/59; BP 150/86; PULSE 60; RESP 18; TEMP 36.4; O2SAT 99
[2023-07-13 08:05] VITALS: BP 129/66; BP 150/86; PULSE 62; RESP 18; O2SAT 98
[2023-07-13 08:11] VITALS: BP 120/74; BP 150/86; PULSE 65; RESP 18; TEMP 36.7; O2SAT 100
[2023-07-13 08:24] VITALS: BP 150/86
== END 2023-07-13 08:43 | disposition home or self-care (01) ==
LOC: SDC 05:55 → AC 05:56
PROVIDERS: Referring Provider Anesthesiology Pain Medicine; Visit Provider Anesthesiology Pain Medicine
PROC: (CPT 64483; principal; 2023-07-13 07:15)
DX: M47.817 Spondylosis without myelopathy or radiculopathy, lumbosacral region (principal); M46.96 Unspecified inflammatory spondylopathy, lumbar region; M51.37 Other intervertebral disc degeneration, lumbosacral region; E78.00 Pure hypercholesterolemia, unspecified; K21.9 Gastro-esophageal reflux disease without esophagitis; I10 Essential (primary) hypertension; M48.07 Spinal stenosis, lumbosacral region; M54.17 Radiculopathy, lumbosacral region; M43.16 Spondylolisthesis, lumbar region; Z79.899 Other long term (current) drug therapy; Z79.82 Long term (current) use of aspirin
CPT/HCPCS: 64483; 64484; 01992; 72100; 76000; J7120

== ENCOUNTER 2023-09-28 07:21 | Day surgery (SDC) | payer MEDICARE, SELFPAY ==
--- OUTSIDE RECORDS SUMMARY | 2023-09-28 07:29 | XMS RPT_ITS | CCD ---
Author Name Unknown Address [id number] [place] [address] Organization [facility] Care Team Providers Care Tile Classifier Name Role Phone Aisha Quinn Unavailable Unavailable Bob Connell Unavailable Unavailable Bob Connell Unavailable Unavailable Unavailable Joellen Banda MD Primary Care Provider Ramon Becker DO Unavailable Theron Connell DO Primary Care Provider Joellen Banda MD Primary Care Provider Ramon Becker DO Unavailable Julio Garcia MD Primary Care Provider [phone] Unavailable Unavailable Bob Tilley Referring Unavailab ivanna Quinn, Dr. Aisha Srinivasan Attending UnavailBob Bundy Primary Care Unavailab ivanna Quinn, Dr. Aisha Srinivasan Attending UnavailTyron cMgee Referring Unavailable Bob Connell Primary Care Unavailab Ramon Hidalgo DO Unavailable Julio Garcia MD Primary Care Provider [phone] Federico THOMPSON, Elvira Santoyo Unavailable [phone] Bob Connell Unavailable CHAMMAJULIO CALDERON Attending Unavailable CHAMMAS GABRIELA, JULIO Primary Care Unavailable CHAMMAS GABRIELA JULIO Referring Unavailable CHAMMAS GABRIELA, JULIO Primary Care Unavailable CHAMMAS GABRIELA, JULIO Referring Unavailable CHAMMAS GABRIELA, JULIO Attending Unavailable CHAMMAS GABRIELA, JULIO Primary Care Unavailable CHAMMAS GABRIELA, JULIO Primary Care Unavailable CHAMMAS GABRIELA, JULIO Attending Unavailable CHAMMAS GABRIELA, JULIO Referring Unavailable CHAMMAS GABRIELA, JULIO Primary Care Unavailable CHAMMAS GABRIELA, JULIO Referring Unavailable CHAMMAS GABRIELA, JULIO Primary Care Unavailable CHAMMAS GABRIELA, JULIO Attending Unavailable CHAMMAS GABRIELA, JULIO Referring Unavailable CHAMMAS GABRIELA, JULIO Primary Care Unavailable JANENE, MAGDALENA Attending Unavailable CHAMMAS GABREILA, JULIO Primary Care Unavailable JANENE, MAGDALENA Referring Unavailable CHAMMAS GABRIELA, JULIO Primary Care Unavailable JANENE, MAGDALENA Attending Unavailable CHAMMAS GABRIELA, JULIO Primary Care Unavailable Allergies Allergy Classification Reported Allergen(s) Allergy Type Date of Onset Reaction(s) Facility (20 sources) Morphine; Translations: [MORPHINE] Drug Allergy 07-30-2018 [facility] (20 sources) HYDROcodone; Translations: [HYDROCODONE] Drug Allergy 06-30-2022 [facility] Medications Current Medications Medication Drug Class(es) Dates Sig (Normalized) Sig (Original) atorvastatin 20 mg oral tablet (20 sources) HMG-CoA Reductase Inhibitor Start: 10-10-2021 End: 11-26-2023 take 1 tablet by mouth once daily atorvastatin (LIPITOR) 20 mg tablet Indications: Dyslipidemia Take 1 tablet by mouth once daily. 90 tablet 3 12/01/2022 11/26/2023 Active Completed/Discontinued Medications Medication Drug Class(es) Dates Sig (Normalized) Sig (Original) acetaminophen 500 mg oral tablet (20 sources) Start: 12-22-2019 take 2 tablets by mouth three times daily acetaminophen (TYLENOL EXTRA STRENGTH) 500 mg tablet Take 2 tablets by mouth three times daily. 180 tablet 1 12/22/2019 Active Problems Active Problems Problem Classification Problem Date Documented Da te Episodic/Chronic Delirium, dementia, and amnestic and other cognitive disorders (1 source) Dementia; Translations: [Mild dementia without behavioral disturbance, psychotic disturbance, mood disturbance, or anxiety, unspecified dementia type (HCC)] 06-15-2023 Chronic Disorders of lipid metabolism (20 sources) Mixed hyperlipidemia; Translations: [Mixed hyperlipidemia] Onset: 11-08-202 2 Chronic Esophageal disorders (12 sources) Gastroesophageal reflux disease; Translations: [Gastro-esophageal reflux disease without esophagitis] Onset: 3 Chronic Esophageal disorders (2 sources) Zenker's diverticulum; Translations: [Diverticulum of esophagus, acquired] Onset: 4 09-17-2023 Episodic Essential hypertension (20 sources) Benign hypertension; Translations: [Essential (primary) hypertension] Onset: 2 Chronic Fever of unknown origin (1 source) Fever; Translations: [Fever, unspecified] Episodic Fluid and electrolyte disorders (2 sources) Hyponatremia; Translations: [Hypo-osmolality and hyponatremia] Episodic Genitourinary symptoms and ill-defined conditions (20 sources) Urinary incontinence; Translations: [Unspecified urinary incontinence] Onset: 2 Chronic Immunizations and screening for infectious disease (1 source) Vaccination needed; Translations: [Encounter for immunization] Episodic Miscellaneous mental health disorders (20 sources) Primary insomnia; Translations: [Primary insomnia] Onset: 2 Chronic Nausea and vomiting (1 source) Nausea; Translations: [Nausea] Onset: 3 Episodic Nutritional deficiencies (5 sources) Vitamin D deficiency; Translations: [Vitamin D deficiency, unspecified] Onset: 3 Chronic Osteoarthritis (1 source) Degenerative joint disease involving multiple joints; Translations: [Polyosteoarthritis, unspecified] Chronic Other bone disease and musculoskeletal deformities (1 source) Osteopenia; Translations: [Other specified disorders of bone density and structure, unspecified site] Episodic Other ear and sense organ disorders (20 sources) Sensorineural hearing loss, bilateral; Translations: [Sensorineural hearing loss, bilateral] Onset: 2 06-03-2022 Chronic Other ear and sense organ disorders (1 source) Sensorineural hearing loss, bilateral; Translations: [Sensorineural hearing loss (SNHL) of both ears] Onset: 2 Chronic Other gastrointestinal disorders (2 sources) Finding of abdominopelvic segment of trunk; Translations: [Intra-abdominal and pelvic swelling, mass and lump, unspecified site] Episodic Other gastrointestinal disorders (1 source) Heartburn; Translations: [Heartburn] Onset: 3 Episodic Other lower respiratory disease (3 sources) Cough; Translations: [Acute cough] Episodic Other lower respiratory disease (1 source) Dry cough; Translations: [Dry cough] 03-23-2023 Episodic Other nervous system disorders (20 sources) Chronic pain syndrome; Translations: [Chronic pain syndrome] Onset: 8 06-03-2022 Chronic Other nervous system disorders (2 sources) Other chronic pain; Translations: [Chronic midline low back pain without sciatica] Onset: 3 Chronic Other non-traumatic joint disorders (3 sources) Multiple joint pain; Translations: [Pain in unspecified joint] Episodic Other screening for suspected conditions (not mental disorders or infectious disease) (3 sources) Patient encounter status; Translations: [Encounter for other screening for malignant neoplasm of breast] Episodic Other upper respiratory disease (1 source) Dysphonia; Translations: [Hoarseness] Onset: 3 Episodic Superficial injury; contusion (2 sources) Right wrist contusion; Translations: [Contusion of right wrist, initial encounter] Episodic Unclassified (1 source) Other cough; Translations: [Other cough] Onset: 3 Unclassified (1 source) Mild dementia without behavioral disturbance, psychotic disturbance, mood disturbance, or anxiety, unspecified dementia type (HCC); Translations: [Mild dementia without behavioral disturbance, psychotic disturbance, mood disturbance, or anxiety, unspecified dementia type (HCC)] Onset: 3 Unclassified (1 source) Acute cough; Translations: [Acute cough] Onset: 3 Unclassified (1 source) Chronic midline low back pain without sciatica; Translations: [Chronic midline low back pain without sciatica] Onset: 3 Unclassified (1 source) Dry cough; Translations: [Dry cough] Onset: 3 Past or Other Problems Problem Classification Problem Date Documented Da te Episodic/Chronic Abdominal pain (3 sources) Left lower quadrant pain; Translations: [Left lower quadrant pain] Onset: 11-20-2022 Episodic Acute bronchitis (2 sources) Acute bronchitis; Translations: [Acute bronchitis, unspecified] Onset: 06-15-2023 06-15-2023 Episodic Allergic reactions (2 sources) Environmental allergy; Translations: [Other allergy status, other than to drugs and biological substances] Onset: 03-23-2023 03-23-2023 Episodic Diabetes mellitus without complication (14 sources) Hyperglycemia; Translations: [Hyperglycemia, unspecified] Onset: 11-06-2022 Episodic Nutritional deficiencies (2 sources) Cobalamin deficiency; Translations: [Deficiency of other specified B group vitamins] Onset: 11-06-2022 Episodic Other gastrointestinal disorders (9 sources) Dysphagia; Translations: [Dysphagia, unspecified] Onset: 05-15-2023 05-15-2023 Episodic Other gastrointestinal disorders (1 source) Dysphagia, unspecified; Translations: [Dysphagia, unspecified type] Onset: 05-15-2023 Episodic Other gastrointestinal disorders (1 source) Intra-abdominal and pelvic swelling, mass and lump, unspecified site; Translations: [Intra-abdominal and pelvic swelling, mass and lump, unspecified site] Onset: 11-20-2022 Episodic Other lower respiratory disease (4 sources) Chronic cough; Translations: [Chronic cough] Onset: 05-15-2023 02-08-2023 Episodic Pneumonia (except that caused by tuberculosis or sexually transmitted disease) (20 sources) Pneumonia; Translations: [Pneumonia, unspecified organism] Onset: 07-30-2022 Episodic Spondylosis; intervertebral disc disorders; other back problems (20 sources) Chronic low back pain; Translations: [Chronic low back pain, unspecified back pain laterality, unspecified whether sciatica present] Onset: 11-06-2022 Episodic NEGATED: Highlighted row has not occurred!Residual codes; unclassified (4 sources) Disease Episodic Results Test Name Value Interpretation Reference Range Facil ity Vital Signs Date Time Vital Sign Value Performing Clinician Facility 09-17-2023 13:03-0500 Body height 152.4 cm Magdalena Janene [employer] Work Phone: [facility] 09-17-2023 13:03-0500 Body weight 62.14 kg TeleFlipette [employer] Work Phone: [facility] 09-17-2023 13:03-0500 Diastolic blood pressure 82 mm[Hg] Magdalena Janene [employer] Work Phone: [facility] 09-17-2023 13:03-0500 Heart rate 76 /min Magdalena9flatsette [employer] Work Phone: [facility] 09-17-2023 13:03-0500 Systolic blood pressure 148 mm[Hg] Magdalena Watters PA-C Work Phone: [facility] 06-15-2023 15:42-0500 Body height 152.4 cm Julio Kirby MD Work Phone: [facility] 06-15-2023 15:42-0500 Body weight 63.05 kg Julio Kirby MD Work Phone: [facility] 06-15-2023 15:42-0500 Diastolic blood pressure 80 mm[Hg] Julio Kirby MD Work Phone: [facility] 06-15-2023 15:42-0500 Heart rate 73 /min Julio Kirby MD Work Phone: [facility] 06-15-2023 15:42-0500 SaO2% (BldA) [Mass fraction] 99 % Julio Kirby MD Work Phone: [facility] 06-15-2023 15:42-0500 Systolic blood pressure 108 mm[Hg] uJlio Kirby MD Work Phone: [facility] 05-15-2023 10:05-0400 Body height 152.4 cm Julio Kirby MD Work Phone: [facility] 05-15-2023 10:05-0400 Body weight 64.41 kg Julio Kirby MD Work Phone: [facility] 05-15-2023 10:05-0400 Diastolic blood pressure 80 mm[Hg] Julio Kirby MD Work Phone: [facility] 05-15-2023 10:05-0400 Heart rate 75 /min Julio Kirby MD Work Phone: [facility] 05-15-2023 10:05-0400 SaO2% (BldA) [Mass fraction] 99 % Julio Kirby MD Work Phone: [facility] 05-15-2023 10:05-0400 Systolic blood pressure 110 mm[Hg] Julio Kirby MD Work Phone: [facility] 03-23-2023 08:49-0400 Body height 152.4 cm Julio Kirby MD Work Phone: [facility] 03-23-2023 08:49-0400 Body weight 62.14 kg Julio Kirby MD Work Phone: [facility] 03-23-2023 08:49-0400 Diastolic blood pressure 80 mm[Hg] Julio Kirby MD Work Phone: [facility] 03-23-2023 08:49-0400 Heart rate 101 /min Julio Kirby MD Work Phone: [facility] 03-23-2023 08:49-0400 SaO2% (BldA) [Mass fraction] 99 % Julio Kirby MD Work Phone: [facility] 03-23-2023 08:49-0400 Systolic blood pressure 140 mm[Hg] Julio Kirby MD Work Phone: [facility] 11-06-2022 10:23-0400 Body weight 62.69 kg Julio Kirby MD Work Phone: [facility] 11-06-2022 10:23-0400 Diastolic blood pressure 70 mm[Hg] Julio Kirby MD Work Phone: [facility] 11-06-2022 10:23-0400 Heart rate 52 /min Julio Kirby MD Work Phone: [facility] 11-06-2022 10:23-0400 SaO2% (BldA) [Mass fraction] 100 % Julio Kirby MD Work Phone: [facility] 11-06-2022 10:23-0400 Systolic blood pressure 112 mm[Hg] Julio Kirby MD Work Phone: [facility] 08-18-2022 13:56-0500 Body height 152.4 cm Julio Kirby MD Work Phone: [facility] 08-18-2022 13:56-0500 Body temperature 96.91 [degF] Julio Kirby MD Work Phone: [facility] 08-18-2022 13:56-0500 Body weight 63.78 kg Julio Kirby MD Work Phone: [facility] 08-18-2022 13:56-0500 Diastolic blood pressure 84 mm[Hg] Julio Kirby MD Work Phone: [facility] 08-18-2022 13:56-0500 Heart rate 83 /min Julio Kirby MD Work Phone: [facility] 08-18-2022 13:56-0500 SaO2% (BldA) [Mass fraction] 100 % Julio Kirby MD Work Phone: [facility] 08-18-2022 13:56-0500 Systolic blood pressure 129 mm[Hg] Julio Kirby MD Work Phone: [facility] 07-29-2022 14:33-0500 Body height 152.4 cm Cecilia Conn PA-C Work Phone: [facility] 07-29-2022 14:33-0500 Body temperature 100.29 [degF] Cecilia Buenoert PA-C Work Phone: [facility] 07-29-2022 14:33-0500 Body weight 65.41 kg Ceciliaivanna Conn PA-C Work Phone: [facility] 07-29-2022 14:33-0500 Diastolic blood pressure 72 mm[Hg] Cecilia Conn PA-C Work Phone: [facility] 07-29-2022 14:33-0500 Heart rate 102 /min Cecilia Rudert PA-C Work Phone: [facility] 07-29-2022 14:33-0500 Respiratory rate 12 /min Cecilia Rudert PA-C Work Phone: [facility] 07-29-2022 14:33-0500 SaO2% (BldA) [Mass fraction] 95 % Cecilia Rudert PA-C Work Phone: [facility] 07-29-2022 14:33-0500 Systolic blood pressure 115 mm[Hg] Cecilia Rudert PA-C Work Phone: [facility] 06-03-2022 13:49-0500 Body height 152.4 cm Julio Kirby MD Work Phone: [facility] 06-03-2022 13:49-0500 Body weight 66.22 kg Julio Kirby MD Work Phone: [facility] 06-03-2022 13:49-0500 Diastolic blood pressure 80 mm[Hg] Julio Kirby MD Work Phone: [facility] 06-03-2022 13:49-0500 Heart rate 83 /min Julio Kirby MD Work Phone: [facility] 06-03-2022 13:49-0500 SaO2% (BldA) [Mass fraction] 99 % Julio Kirby MD Work Phone: [facility] 06-03-2022 13:49-0500 Systolic blood pressure 150 mm[Hg] Julio Kirby MD Work Phone: [facility] 02-10-2022 11:10-0400 Body height 152.4 cm Joellen Banda MD Work Phone: [facility] 02-10-2022 11:10-0400 Body temperature 97.81 [degF] Joellen Banda MD Work Phone: [facility] 02-10-2022 11:10-0400 Body weight 67.13 kg Joellen Banda MD Work Phone: [facility] 02-10-2022 11:10-0400 Diastolic blood pressure 72 mm[Hg] Joellen Banda MD Work Phone: [facility] 02-10-2022 11:10-0400 Systolic blood pressure 128 mm[Hg] Joellen Banda MD Work Phone: [facility] 01-06-2022 17:56-0400 Body temperature 98.71 [degF] Jarvis Johnson MD Work Phone: [facility] 01-06-2022 17:56-0400 Diastolic blood pressure 83 mm[Hg] Jarvis Johnson MD Work Phone: [facility] 01-06-2022 17:56-0400 Heart rate 103 /min Jarvis Johnson MD Work Phone: [facility] 01-06-2022 17:56-0400 Respiratory rate 14 /min Jarvis Johnson MD Work Phone: [facility] 01-06-2022 17:56-0400 SaO2% (BldA) [Mass fraction] 97 % Jarvis Johnson MD Work Phone: [facility] 01-06-2022 17:56-0400 Systolic blood pressure 181 mm[Hg] Jarvis Johnson MD Work Phone: [facility] 10-24-2021 10:16-0400 Body height 152.4 cm Mariah White MD Work Phone: [facility] 10-24-2021 10:16-0400 Body temperature 96.21 [degF] Mariah White MD Work Phone: [facility] 10-24-2021 10:16-0400 Body weight 66.63 kg Mariah hWite MD Work Phone: [facility] 10-24-2021 10:16-0400 Diastolic blood pressure 88 mm[Hg] Mariah White MD Work Phone: [facility] 10-24-2021 10:16-0400 Heart rate 88 /min Mariah White MD Work Phone: [facility] 10-24-2021 10:16-0400 Respiratory rate 12 /min Mariah White MD Work Phone: [facility] 10-24-2021 10:16-0400 Systolic blood pressure 160 mm[Hg] Mariah White MD Work Phone: [facility] Encounters Encounter Date Encounter Type Care Provider Facility Start: 09-17-2023 End: 09-17-2023 ambulatory MAGDALENA WATTERS Facility:[facility] Start: 09-17-2023 End: 09-17-2023 Patient encounter procedure Magdalena Watters PA-C Work Phone: [facility] Procedures Date Procedure Procedure Detail Performing Clinician Start: 06-15-2023 Radiologic exam ches t 2 views Julio Kirby MD Work Phone: Plan of Treatment Date Care Activity Detail Author Start: 04-07-2026 Diabetes Screening Diabetes Screenin g [facility] Start: 10-29-2025 DIABETES SCREEN DIABETES SCREEN [facility] Start: 08-02-2025 DIABETES SCREEN DIABETES SCREEN [facility] Start: 10-24-2024 DIABETES SCREEN DIABETES SCREEN [facility] Start: 05-15-2024 Urine microalbumin profile DTa P,Tdap,Td Vaccine (1 - Tdap) [facility] Immunizations Immunization Date Immunization Notes Care Provider Marnie mcgee 06-27-2023 respiratory syncytia l virus (RSV) vaccine, adjuvanted (AREXVY) Julio Kirby MD Work Phone: [facility] 04-20-2023 COVID-19 vaccine, ag e 12+ yr, season (MODERNA) Julio Kirby MD Work Phone: [facility] 04-20-2023 COVID-19 vaccine, unspecified formulation Julio Kirby MD Work Phone: [facility] 04-11-2023 influenza (aIIV4) vaccine, age 65+ yr, quadrivalent, PF (FLUAD QUAD) Julio Kirby MD Work Phone: [facility] 04-11-2023 influenza, intraderm al, quadrivalent, preservative free, injectable Julio Kirby MD Work Phone: [facility] 11-07-2022 pneumococcal Conjuga te, unspecified formulation Julio Kirby MD Work Phone: [facility] Work Phone: 11-06-2022 pneumococcal (PCV20) vaccine, 20 valent (PREVNAR 20) Julio Kirby MD Work Phone: [facility] 11-06-2022 pneumococcal Conjuga te, unspecified formulation Julio Kirby MD Work Phone: [facility] Work Phone: 05-15-2022 influenza (aIIV4) vaccine, age 65+ yr, quadrivalent, PF (FLUAD QUADRIVALENT) Julio Kirby MD Work Phone: [facility] 05-22-2021 influenza (aIIV4) vaccine, age 65+ yr, quadrivalent, PF (FLUAD QUADRIVALENT) Mariah White MD Work Phone: [facility] 09-21-2020 COVID-19 vaccine, fu ll dose (MODERNA) Mariah White MD Work Phone: [facility] 08-24-2020 COVID-19 vaccine, fu ll dose (MODERNA) Mariah White MD Work Phone: [facility] 05-10-2020 influenza, injectabl e, quadrivalent, preservative free Mariah White MD Work Phone: [facility] 04-28-2019 influenza, injectabl e, quadrivalent, preservative free Mariah White MD Work Phone: [facility] 04-28-2018 Seasonal trivalent influenza vaccine, adjuvanted, preservative free Mariah White MD Work Phone: [facility] 05-31-2017 influenza, high dose seasonal, preservative-free Mariah White MD Work Phone: [facility] 04-28-2017 influenza, high dose seasonal, preservative-free Mariah White MD Work Phone: [facility] 06-06-2015 influenza, injectabl e, quadrivalent, contains preservative Mariah White MD Work Phone: [facility] Payers Date Payer Category Payer Medicare [employer] [facility] [id number] 2017-Present [phone] [place] [address] O [id number] 2017 Medicare [employer] [facility] O [id number] 2017-Present [phone] [place] [address] O [id number] 2017 Medicare [id number] 1940 Unknown [id number] 1940 Unknown [id number] Self-pay Unknown Social History Date Type Detail Facility Assertion Tobacco smoking consumption unknown (finding) [facility] Work Phone: Start: 07-30-2018 End: 06-03-2022 Tobacco smoking status NHIS Never smoked tobacco [facility] Start: 07-30-2018 End: 06-03-2022 Tobacco use and exposure Smokeless tobacco non-user [facility] Start: 10-24-2021 End: 09-17-2023 Alcohol intake Current non-drinker of alcohol (finding) [facility] Start: 1940 Sex Assigned At Not on file C [facility] Start: 10-14-2021 End: 02-18-2022 Exposure to SARS-CoV-2 (event) Not sure [facility] Start: 11-10-2021 End: 11-29-2021 Exposure to SARS-CoV-2 (event) Unable to assess [facility] Start: 01-06-2022 Alcohol intake Lifetime non-d rubén (finding) [facility] Work Phone: Start: 01-06-2022 History SDOH Alcohol Frequency 1 [facility] [employer] Phone: Start: 08-18-2022 End: 03-23-2023 History of Social function [facility] Work Phone: Start: 08-18-2022 End: 03-23-2023 Tobacco use panel [facility] Work Phone: Adult Depression Screening Assessment 0 [facility] Work Phone: Functional Status Date Assessment Result Facility NEGATED: Highlighted row Functional performance Functional status health issues are not documented Disease IA-Wjckuemorvzzsd-M kron Work Phone: Mental Status Date Assessment Result Facility NEGATED: Highlighted row Cognitive function [Interpretation] Cognitive status health issues are not documented Disease HI-Tstfvacjlecddf-E kron Work Phone: Clinical Notes 04-08-2021 to 09-17-2023 Patient InstructionsMiMagdalena kapadia PA-C - 09/17/2023 1:13 PM ESTTelephone Encounter - Soco Karimi MA - 08/31/2023 11:17 AM ESTPatient InstructionsPatient InstructionsPatient Instructions Note Date & Type Note Facility 09-17-2023 Note HNO ID: [id number] Author: MAGDALENA WATTERS PA-C Service: ? Author Type: Physician Wool Brusher Type: Progress Notes Filed: 09/17/2023 13:42 Note Text: GASTROENTEROLOGY PROGRESS NOTE OUTPATIENT FOLLOW UP HPI: I saw Michelle Floyd today for a follow up on esophagram. Tolerated well. Still having some issues with swallowing does choke a lot. Not taking Pepcid. Still taking omeprazole. 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 07-23-23 IMPRESSION: Moderate to large sized Zenker's diverticulum. History reviewed. No pertinent past medical history. PAST SURGICAL HISTORY Procedure Laterality Date SNGL x 2 REMV CATARACT EXTRACAP,INSERT LENS Bilateral Cataract, eye lid lift TONSILLECTOMY AND ADENOIDECTOMY Social History Tobacco Use Smoking status: Never Smokeless tobacco: Never Vaping Use Vaping Use: Never used Substance Use Topics Alcohol use: No Drug use: No FAMILY HISTORY Problem Relation Age of Onset Aneurysm Mother AAA Heart Attack Mother Alzheimer's Disease Father Rheumatologic disease Brother RA other () Granddaughter Current Outpatient Medications Medication Sig omeprazole (PRILOSEC) 40 mg capsule take 1 capsule by mouth once daily benzonatate (TESSALON PERLES) 100 mg capsule Take 1 capsule by mouth three times a day as needed for cough. predniSONE (DELTASONE) 20 mg tablet Take 1 tablet after breakfast for 5 days triamterene-hydroCHLOROthiazide (DYAZIDE) 37.5-25 mg per capsule take 1 capsule by mouth once daily diclofenac (VOLTAREN) 1 % topical gel Apply 2 g to affected area four times daily. loratadine (CLARITIN) 10 mg tablet Take 1 tablet by mouth once daily as needed for cold/allergy symptoms. atorvastatin (LIPITOR) 20 mg tablet Take 1 tablet by mouth once daily. ramipril (ALTACE) 5 mg capsule Take 1 capsule by mouth once daily. amLODIPine (NORVASC) 2.5 mg tablet take 1 tablet by mouth once daily mirabegron (MYRBETRIQ) 25 mg Tb24 Take 1 tablet by mouth once daily. acetaminophen (TYLENOL EXTRA STRENGTH) 500 mg tablet Take 2 tablets by mouth three times daily. No current facility-administered medications for this visit. ALLERGIES Allergen Reactions Hydrocodone Unknown Morphine Hives PHYSICAL EXAMINATION: BP 148/82 Pulse 76 Ht 152.4 cm (5') Wt 62.1 kg (137 lb) LMP (LMP Unknown) BMI 26.76 kg/m? GENERAL APPEARANCE: Well appearing, alert, in no acute distress, well-hydrated, well nourished. SKIN: Skin color, texture, turgor normal, no suspicious rashes or lesions. EYES: Anicteric sclera. Extraocular movements are intact. NECK: Supple, no adenopathy; thyroid symmetric, normal size, no bruits. EXTREMITIES: No deformities, edema, skin discoloration, clubbing or cyanosis. NEUROLOGIC: Gait normal. Sensation and strength grossly intact. LABS: Hemoglobin (g/dL) Date Value 04/07/2023 13.5 Hematocrit (%) Date Value 04/07/2023 40.5 WBC (Thousand/uL) Date Value 04/07/2023 5.7 Lab Results Component Value Date TBILI 0.7 04/07/2023 CREAT 0.60 04/07/2023 ALB 4.2 04/07/2023 CBILI 0.1 04/07/2023 ALKPHOS 44 04/07/2023 AST 20 04/07/2023 ALT 14 04/07/2023 TPROT 6.8 04/07/2023 Plan ASSESSMENT AND PLAN: Impression: This is a 83 year old female who presents to the office today for follow-up on esophagram. The patient was found to have a moderate to large sized Zenkers diverticulum. I did recommend that the patient see Dr. Rahat Terry MD. The patient would like to hold off on any possible surgeries. Did recommend that she should at least see the doctor and see if he has any other suggestions for her. The patient will let us know if she would like us to put in a referral. The patient had no further questions or concerns at this time. ASSESSMENT/PLAN: 1. Zenker's diverticulum - ICD9: 530.6, ICD10: K22.5 Magdalena Watters PA-C I spent a total of 25 minutes on the date of the service which included preparing to see the patient, [id number] patient care, completing clinical documentation, counseling and educating the patient/family/caregiver, and communicating results to the patient/family/caregiver. This note was partially generated using [employer] voice recognition system, and there may be some incorrect words, spellings, and punctuation that were not noted in checking the note before saving. [facility] 09-17-2023 Instructions Magdalena Watters PA-C - 09/17/2023 1:[address] Rahat Terry MD- to be referred to if patient requests. documented in this encounter [facility] 09-17-2023 History of Presen t illness Narrative GASTROENTEROLOGY PROGRESS NOTE OUTPATIENT FOLLOW UP HPI: I saw Michelle Floyd today for a follow up on esophagram. Tolerated well. Still having some issues with swallowing does choke a lot. Not taking Pepcid. Still taking omeprazole. 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 07-23-23 IMPRESSION: Moderate to large sized Zenker's diverticulum. History reviewed. No pertinent past medical history. PAST SURGICAL HISTORY Procedure Laterality Date SNGL x 2 REMV CATARACT EXTRACAP,INSERT LENS Bilateral Cataract, eye lid lift TONSILLECTOMY & ADENOIDECTOMY <AGE 11 Social History Tobacco Use Smoking status: Never Smokeless tobacco: Never Vaping Use Vaping Use: Never used Substance Use Topics Alcohol use: No Drug use: No FAMILY HISTORY Problem Relation Age of Onset Aneurysm Mother AAA Heart Attack Mother Alzheimer's Disease Father Rheumatologic disease Brother RA other () Granddaughter Current Outpatient Medications Medication Sig omeprazole (PRILOSEC) 40 mg capsule take 1 capsule by mouth once daily benzonatate (TESSALON PERLES) 100 mg capsule Take 1 capsule by mouth three times a day as needed for cough. predniSONE (DELTASONE) 20 mg tablet Take 1 tablet after breakfast for 5 days triamterene-hydroCHLOROthiazide (DYAZIDE) 37.5-25 mg per capsule take 1 capsule by mouth once daily diclofenac (VOLTAREN) 1 % topical gel Apply 2 g to affected area four times daily. loratadine (CLARITIN) 10 mg tablet Take 1 tablet by mouth once daily as needed for cold/allergy symptoms. atorvastatin (LIPITOR) 20 mg tablet Take 1 tablet by mouth once daily. ramipril (ALTACE) 5 mg capsule Take 1 capsule by mouth once daily. amLODIPine (NORVASC) 2.5 mg tablet take 1 tablet by mouth once daily mirabegron (MYRBETRIQ) 25 mg Tb24 Take 1 tablet by mouth once daily. acetaminophen (TYLENOL EXTRA STRENGTH) 500 mg tablet Take 2 tablets by mouth three times daily. No current facility-administered medications for this visit. ALLERGIES Allergen Reactions Hydrocodone Unknown Morphine Hives PHYSICAL EXAMINATION: BP 148/82 Pulse 76 Ht 152.4 cm (5') Wt 62.1 kg (137 lb) LMP (LMP Unknown) BMI 26.76 kg/m GENERAL APPEARANCE: Well appearing, alert, in no acute distress, well-hydrated, well nourished. SKIN: Skin color, texture, turgor normal, no suspicious rashes or lesions. EYES: Anicteric sclera. Extraocular movements are intact. NECK: Supple, no adenopathy; thyroid symmetric, normal size, no bruits. EXTREMITIES: No deformities, edema, skin discoloration, clubbing or cyanosis. NEUROLOGIC: Gait normal. Sensation and strength grossly intact. LABS: Hemoglobin (g/dL) Date Value 04/07/2023 13.5 Hematocrit (%) Date Value 04/07/2023 40.5 WBC (Thousand/uL) Date Value 04/07/2023 5.7 Lab Results Component Value Date TBILI 0.7 04/07/2023 CREAT 0.60 04/07/2023 ALB 4.2 04/07/2023 CBILI 0.1 04/07/2023 ALKPHOS 44 04/07/2023 AST 20 04/07/2023 ALT 14 04/07/2023 TPROT 6.8 04/07/2023 Plan ASSESSMENT AND PLAN: Impression: This is a 83 year old female who presents to the office today for follow-up on esophagram. The patient was found to have a moderate to large sized Zenkers diverticulum. I did recommend that the patient see Dr. Rahat Terry MD. The patient would like to hold off on any possible surgeries. Did recommend that she should at least see the doctor and see if he has any other suggestions for her. The patient will let us know if she would like us to put in a referral. The patient had no further questions or concerns at this time. ASSESSMENT/PLAN: 1. Zenker's diverticulum - ICD9: 530.6, ICD10: K22.5 Magdalena Watters PA-C I spent a total of 25 minutes on the date of the service which included preparing to see the patient, [id number] patient care, completing clinical documentation, counseling and educating the patient/family/caregiver, and communicating results to the patient/family/caregiver. This note was partially generated using [employer] recognition system, and there may be some incorrect words, spellings, and punctuation that were not noted in checking the note before saving. documented in this encounter [facility] 08-31-2023 Miscellaneous Notes Pharmacy Escripted requesting the following refill Refill(s) Requested: Requested Prescriptions Pending Prescriptions Disp Refills omeprazole (PRILOSEC) 40 mg capsule [Pharmacy Med Name: OMEPRAZOLE DR 40 MG CAPSULE] 90 capsule 3 Sig: take 1 capsule by mouth once daily ALLERGIES Allergen Reactions Hydrocodone Unknown Morphine Hives (home) [phone] (cell) Last Office Visit Date: 06/15/2023 Last [facility] Visit: Visit date not found Future Appointment: 11/27/2023 The patients preferred pharmacy has been captured for this encounter? yes Request is for script(s) to be escript to pharmacy. Soco Karimi MA documented in this encounter [facility] 07-23-2023 Note HNO ID: [id number] Author: Kathryn Rosenthal RT(Eliseo) Service: Radiology Author Type: Technologist Type: Progress Notes Filed: 07/23/2023 12:57 PM Note Text: Radiology Service Progress Note PATIENT NAME: Michelle Floyd DATE OF SERVICE: July 23, 2023 TIME: 12:57 PM PATIENT IDENTITY VERIFICATION COMPLETED USING TWO (2) IDENTIFIERS: Name and Date of confirmed by patient verbally. FALL SCREENING: Has the patient had 2 falls in the last year or 1 fall with injury or currently using an Ambulatory Assistive Device (Walker, Cane, Wheelchair, Crutches, etc.)? No PATIENT GENDER DATA: Female. status: : No status: NO. PATIENT RELEVANT IMPLANT DATA REVIEWED: Not Applicable RADIOLOGY DEPARTMENT: General X-ray: Exam(s) Completed: GI/ Procedure(s): Esophogram with barium contrast PERIPHERAL IV DATA: Not applicable SIGNED BY: RT Argentina(Eliseo) July 23, 2023 12:57 PM [facility] 07-10-2023 Note HNO ID: [id number] Author: Magdalena Watters PA-C Service: ? Author Type: Physician Wool Brusher Type: Progress Notes Filed: 07/10/2023 11:48 AM Note Text: GASTROENTEROLOGY OUTPATIENT NEW OFFICE VISIT CC: Patient presents with: New Patient Difficulty Swallowing HPI: Michelle Floyd is a 83 year old female who presents for New Patient and Difficulty Swallowing. The patient states bread, buns, dry items. Has not noticed it with meats. The patient does eat small bite. No issues with liquids. The patient does take omeprazole. Does think it works. No vomiting. Sometimes chokes on bread items. Will drink water to get things to go down. NSAID use: none. Unexplained weight loss: none. Take Blood thinners: none. Bowel Habits: every 4 days. Normal for her. Does think at times she is constipated but not needing anything to help. Fam Hx: Colon cancer - negative. Colonoscopy: 5 years ago maybe. EGD: never Current Outpatient Medications Medication Sig predniSONE (DELTASONE) 20 mg tablet Take 1 tablet after breakfast for 5 days triamterene-hydroCHLOROthiazide (DYAZIDE) 37.5-25 mg per capsule take 1 capsule by mouth once daily diclofenac (VOLTAREN) 1 % topical gel Apply 2 g to affected area four times daily. loratadine (CLARITIN) 10 mg tablet Take 1 tablet by mouth once daily as needed for cold/allergy symptoms. benzonatate (TESSALON PERLES) 100 mg capsule Take 1 capsule by mouth three times daily as needed for cough. atorvastatin (LIPITOR) 20 mg tablet Take 1 tablet by mouth once daily. ramipril (ALTACE) 5 mg capsule Take 1 capsule by mouth once daily. amLODIPine (NORVASC) 2.5 mg tablet take 1 tablet by mouth once daily omeprazole (PRILOSEC) 40 mg capsule Take 1 capsule by mouth once daily. mirabegron (MYRBETRIQ) 25 mg Tb24 Take 1 tablet by mouth once daily. acetaminophen (TYLENOL EXTRA STRENGTH) 500 mg tablet Take 2 tablets by mouth three times daily. No current facility-administered medications for this visit. History reviewed. No pertinent past medical history. PAST SURGICAL HISTORY Procedure Laterality Date SNGL x 2 REMV CATARACT EXTRACAP,INSERT LENS Bilateral Cataract, eye lid lift TONSILLECTOMY AND ADENOIDECTOMY FAMILY HISTORY Problem Relation Age of Onset Aneurysm Mother AAA Heart Attack Mother Alzheimer's Disease Father Rheumatologic disease Brother RA other () Granddaughter Social History Tobacco Use Smoking status: Never Smokeless tobacco: Never Vaping Use Vaping Use: Never used Substance Use Topics Alcohol use: No Drug use: No ALLERGIES Allergen Reactions Hydrocodone Unknown Morphine Hives GI SPECIFIC ROS: Difficulty swallowing / foods sticking in throat: Yes Heartburn: Yes Hoarseness: Yes Chronic cough: Yes Regurgitation: Yes Chest pain: No Filling up quickly at meals: No Loss of appetite: No Nausea: Yes- has complained of this in past. Vomiting: No Abdominal pain: No Recent change in bowel movements: No Bloody or black, bowel movements: No Constipation: No Diarrhea: No Loss of control of bowel movements: No PHYSICAL EXAMINATION: BP 118/77 Pulse 78 Ht 152.4 cm (5') Wt 63 kg (139 lb) LMP (LMP Unknown) BMI 27.15 kg/m? GENERAL APPEARANCE: Well appearing, alert, in no acute distress, well-hydrated, well nourished. SKIN: Skin color, texture, turgor normal, no suspicious rashes or lesions. EYES: Anicteric sclera. Extraocular movements are intact. NECK: Supple, no adenopathy; thyroid symmetric, normal size, no bruits. LUNGS: Lungs clear to auscultation. No wheezing, rhonchi, rales. HEART: RRR without murmur, gallop, or rubs. No ectopy. ABDOMEN: Abdomen soft, non-tender, non distended. Bowel sounds normal. No masses, ascites or hepatosplenomegaly. EXTREMITIES: No deformities, edema, skin discoloration, clubbing or cyanosis. NEUROLOGIC: Gait normal. Sensation and strength grossly intact. ASSESSMENT AND PLAN: Impression: This is a 83 year old female who presents to the office today for dysphagia. The patient is having symptoms of dysphagia as well as GERD. The patient is going to be scheduled for an esophagram. The patient will then follow-up to discuss whether or not we need to proceed with getting an EGD. The patient states that her bowel movements are normal for her but we may need to consider trying to help her go a little bit more often as this could be contributing to some of the symptoms. The patient had no further questions or concerns at this time. ASSESSMENT/PLAN: 1. Dysphagia, unspecified type - ICD9: 787.20, ICD10: R13.10 (primary diagnosis) - XR ESOPHAGRAM 2. Heartburn - ICD9: 787.1, ICD10: R12 - XR ESOPHAGRAM 3. Hoarseness - ICD9: 784.42, ICD10: R49.0 - XR ESOPHAGRAM 4. Other cough - ICD9: 786.2, ICD10: R05.8 - XR ESOPHAGRAM 5. Nausea - ICD9: 787.02, ICD10: R11.0 - XR ESOPHAGRAM Magdalena Watters PA-C I spent a total of 30 minutes (more content not included)... [facility] 06-15-2023 Note HNO ID: [id number] Author: Julio Garcia MD Service: ? Author Type: Physician Type: Progress Notes Filed: 06/15/2023 4:19 PM Note Text: Visit Date: June 15, 2023 Ms.Patricia Stefany Flyod Date of : 1940 MRN/E #: [id number] Chief Complaint Patient presents with: Cough: Lingering cough. Worse at night. History of present illness Michelle Floyd is a 83 year old female. 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 Patient will be coughing during the day and mainly at night. She will have phlegm but she cannot bring those up and she swallows them. She is getting nauseous at times. She has no fever or chills. She is not short of breath on short distance but on may be a long distance. Her odjfrknb-wz-jew listen to her lungs and she said she had some abnormality on the left side. She was checking her pulse ox that was within normal limits more than 95% Checked her for COVID-19 infection yesterday and it was negative. PAIN EVALUATION No data found in the last 1 encounters. ALLERGIES Allergen Reactions Hydrocodone Unknown Morphine Hives No past medical history on file. PAST SURGICAL HISTORY Procedure Laterality Date SNGL x 2 REMV CATARACT EXTRACAP,INSERT LENS Bilateral Cataract, eye lid lift TONSILLECTOMY AND ADENOIDECTOMY Social History Tobacco Use Smoking status: Never Smokeless tobacco: Never Vaping Use Vaping Use: Never used Substance Use Topics Alcohol use: No Drug use: No FAMILY HISTORY Problem Relation Age of Onset Aneurysm Mother AAA Heart Attack Mother Alzheimer's Disease Father Rheumatologic disease Brother RA other () Granddaughter Review of Systems Constitutional: Negative for chills, fever and malaise/fatigue. HENT: Positive for congestion. Negative for ear discharge, ear pain, sinus pain and sore throat. Eyes: Negative for blurred vision and double vision. Respiratory: Positive for cough and sputum production. Negative for hemoptysis, shortness of breath and wheezing. Cardiovascular: Negative for chest pain, palpitations, orthopnea, leg swelling and PND. Gastrointestinal: Positive for nausea. Negative for abdominal pain, diarrhea, heartburn and vomiting. Genitourinary: Negative for dysuria, frequency, hematuria and urgency. Musculoskeletal: Negative for myalgias. Neurological: Negative for dizziness, tingling, tremors and headaches. Physical Exam Constitutional: General: She is not in acute distress. Appearance: Normal appearance. She is not ill-appearing. HENT: Head: Normocephalic and atraumatic. Right Ear: Tympanic membrane, ear canal and external ear normal. Left Ear: Tympanic membrane, ear canal and external ear normal. Nose: Nose normal. Mouth/Throat: Mouth: Mucous membranes are moist. Pharynx: Oropharynx is clear. Eyes: Conjunctiva/sclera: Conjunctivae normal. Pupils: Pupils are equal, round, and reactive to light. Neck: Vascular: No carotid bruit. Cardiovascular: Rate and Rhythm: Normal rate and regular rhythm. Heart sounds: Normal heart sounds. No murmur heard. Pulmonary: Effort: Pulmonary effort is normal. No respiratory distress. Breath sounds: Normal breath sounds. No stridor. No wheezing, rhonchi or rales. Musculoskeletal: General: No swelling or tenderness. Normal range of motion. Cervical back: Normal range of motion and neck supple. No rigidity or tenderness. Lymphadenopathy: Cervical: No cervical adenopathy. Skin: General: Skin is warm. Coloration: Skin is not jaundiced or pale. Neurological: General: No focal deficit present. Mental Status: She is alert and oriented to person, place, and time. Psychiatric: Mood and Affect: Mood and affect normal. Cognition and Memory: Memory normal. Judgment: Judgment normal. BP 108/80 Pulse 73 Ht 5' 0 (1.52m) Wt 139 lb (63.1kg) SpO2 99% BMI 27.15 kg/(m2). ASSESSMENT/PLAN: 1. Acute bronchitis, unspecified organism - ICD9: 466.0, ICD10: J20.9 (primary diagnosis) Patient has acute bronchitis with coughing and sputum. She is having a lot of cough at night. She cannot bring up the phlegm. Patient to get intb-uom-mmkyqml Mucinex or Mucinex DM twice daily for almost 10 days. We discussed giving doxycycline twice daily for 7 days and prednisone 20 mg after breakfast for 5 days. I reviewed the chest x-ray. The report mentions no acute issues but I believe she may have some infiltrate in the left upper lobe?. The physical exam was unremarkable today except for coughing - DOXYCYCLINE MONOHYDRATE 100 MG CAPSULE - PREDNISONE 20 MG TABLET 2. Mild dementia without behavioral disturbance, psychotic disturbance, mood disturbance, or anxiety, unspecified dementia type (HCC) - ICD9: 294.10, ICD10: F03.A0 We are discussing mild dementia. She has a family history of dementia. With consu (more content not included)... [facility] 06-15-2023 Instructions Julio Garcia MD - 06/15/2023 4:19 PM EST ASSESSMENT/PLAN: 1. Acute bronchitis, unspecified organism - ICD9: 466.0, ICD10: J20.9 (primary diagnosis) Patient has acute bronchitis with coughing and sputum. She is having a lot of cough at night. She cannot bring up the phlegm. Patient to get tfnn-mln-qicjzmj Mucinex or Mucinex DM twice daily for almost 10 days. We discussed giving doxycycline twice daily for 7 days and prednisone 20 mg after breakfast for 5 days. I reviewed the chest x-ray. The report mentions no acute issues but I believe she may have some infiltrate in the left upper lobe?. The physical exam was unremarkable today except for coughing - DOXYCYCLINE MONOHYDRATE 100 MG CAPSULE - PREDNISONE 20 MG TABLET 2. Mild dementia without behavioral disturbance, psychotic disturbance, mood disturbance, or anxiety, unspecified dementia type (HCC) - ICD9: 294.10, ICD10: F03.A0 We are discussing mild dementia. She has a family history of dementia. With consult to at the [facility] and [facility]. - CONSULT TO GERIATRICS Julio Kirby MD documented in this encounter [facility] 06-15-2023 History of Presen t illness Narrative Visit Date: June 15, 2023 Ms.Patricia Stefany Floyd Date of : 1940 MRN/E #: [id number] Chief Complaint Patient presents with: Cough: Lingering cough. Worse at night. History of present illness Michelle Floyd is a 83 year old female. 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 Patient will be coughing during the day and mainly at night. She will have phlegm but she cannot bring those up and she swallows them. She is getting nauseous at times. She has no fever or chills. She is not short of breath on short distance but on may be a long distance. Her okgbrlwr-br-ofd listen to her lungs and she said she had some abnormality on the left side. She was checking her pulse ox that was within normal limits more than 95% Checked her for COVID-19 infection yesterday and it was negative. PAIN EVALUATION No data found in the last 1 encounters. ALLERGIES Allergen Reactions Hydrocodone Unknown Morphine Hives No past medical history on file. PAST SURGICAL HISTORY Procedure Laterality Date SNGL x 2 REMV CATARACT EXTRACAP,INSERT LENS Bilateral Cataract, eye lid lift TONSILLECTOMY & ADENOIDECTOMY <AGE 11 Social History Tobacco Use Smoking status: Never Smokeless tobacco: Never Vaping Use Vaping Use: Never used Substance Use Topics Alcohol use: No Drug use: No FAMILY HISTORY Problem Relation Age of Onset Aneurysm Mother AAA Heart Attack Mother Alzheimer's Disease Father Rheumatologic disease Brother RA other () Granddaughter Review of Systems Constitutional: Negative for chills, fever and malaise/fatigue. HENT: Positive for congestion. Negative for ear discharge, ear pain, sinus pain and sore throat. Eyes: Negative for blurred vision and double vision. Respiratory: Positive for cough and sputum production. Negative for hemoptysis, shortness of breath and wheezing. Cardiovascular: Negative for chest pain, palpitations, orthopnea, leg swelling and PND. Gastrointestinal: Positive for nausea. Negative for abdominal pain, diarrhea, heartburn and vomiting. Genitourinary: Negative for dysuria, frequency, hematuria and urgency. Musculoskeletal: Negative for myalgias. Neurological: Negative for dizziness, tingling, tremors and headaches. Physical Exam Constitutional: General: She is not in acute distress. Appearance: Normal appearance. She is not ill-appearing. HENT: Head: Normocephalic and atraumatic. Right Ear: Tympanic membrane, ear canal and external ear normal. Left Ear: Tympanic membrane, ear canal and external ear normal. Nose: Nose normal. Mouth/Throat: Mouth: Mucous membranes are moist. Pharynx: Oropharynx is clear. Eyes: Conjunctiva/sclera: Conjunctivae normal. Pupils: Pupils are equal, round, and reactive to light. Neck: Vascular: No carotid bruit. Cardiovascular: Rate and Rhythm: Normal rate and regular rhythm. Heart sounds: Normal heart sounds. No murmur heard. Pulmonary: Effort: Pulmonary effort is normal. No respiratory distress. Breath sounds: Normal breath sounds. No stridor. No wheezing, rhonchi or rales. Musculoskeletal: General: No swelling or tenderness. Normal range of motion. Cervical back: Normal range of motion and neck supple. No rigidity or tenderness. Lymphadenopathy: Cervical: No cervical adenopathy. Skin: General: Skin is warm. Coloration: Skin is not jaundiced or pale. Neurological: General: No focal deficit present. Mental Status: She is alert and oriented to person, place, and time. Psychiatric: Mood and Affect: Mood and affect normal. Cognition and Memory: Memory normal. Judgment: Judgment normal. BP 108/80 Pulse 73 Ht 5' 0 (1.52m) Wt 139 lb (63.1kg) SpO2 99% BMI 27.15 kg/(m^2). ASSESSMENT/PLAN: 1. Acute bronchitis, unspecified organism - ICD9: 466.0, ICD10: J20.9 (primary diagnosis) Patient has acute bronchitis with coughing and sputum. She is having a lot of cough at night. She cannot bring up the phlegm. Patient to get cuet-oft-smxvfpf Mucinex or Mucinex DM twice daily for almost 10 days. We discussed giving doxycycline twice daily for 7 days and prednisone 20 mg after breakfast for 5 days. I reviewed the chest x-ray. The report mentions no acute issues but I believe she may have some infiltrate in the left upper lobe?. The physical exam was unremarkable today except for coughing - DOXYCYCLINE MONOHYDRATE 100 MG CAPSULE - PREDNISONE 20 MG TABLET 2. Mild dementia without behavioral disturbance, psychotic disturbance, mood disturbance, or anxiety, unspecified dementia type (HCC) - ICD9: 294.10, ICD10: F03.A0 We are discussing mild dementia. She has a family history of dementia. With consult to at the [facility]. - CONSULT TO GERIATRICS Julio Kirby MD documented in this encounter [facility] 06-15-2023 Note HNO ID: [id number] Author: Kathryn Rosenthal RT(Eliseo) Service: Radiology Author Type: Technologist Type: Progress Notes Filed: 06/15/2023 1:58 PM Note Text: Radiology Service Progress Note PATIENT NAME: Michelle Floyd DATE OF SERVICE: June 15, 2023 TIME: 1:57 PM PATIENT IDENTITY VERIFICATION COMPLETED USING TWO (2) IDENTIFIERS: Name and Date of confirmed by patient verbally. FALL SCREENING: Has the patient had 2 falls in the last year or 1 fall with injury or currently using an Ambulatory Assistive Device (Walker, Cane, Wheelchair, Crutches, etc.)? No PATIENT GENDER DATA: Female. status: : No status: NO. PATIENT RELEVANT IMPLANT DATA REVIEWED: Not Applicable RADIOLOGY DEPARTMENT: General X-ray: Exam(s) Completed: Chest X-Ray PERIPHERAL IV DATA: Not applicable SIGNED BY: RT [place](R) June 15, 2023 1:57 PM [facility] 06-15-2023 History of Presen t illness Narrative Radiology Service Progress Note PATIENT NAME: Michelle Floyd DATE OF SERVICE: June 15, 2023 TIME: 1:57 PM PATIENT IDENTITY VERIFICATION COMPLETED USING TWO (2) IDENTIFIERS: Name and Date of confirmed by patient verbally. FALL SCREENING: Has the patient had 2 falls in the last year or 1 fall with injury or currently using an Ambulatory Assistive Device (Walker, Cane, Wheelchair, Crutches, etc.)? No PATIENT GENDER DATA: Female. status: : No status: NO. PATIENT RELEVANT IMPLANT DATA REVIEWED: Not Applicable RADIOLOGY DEPARTMENT: General X-ray: Exam(s) Completed: Chest X-Ray PERIPHERAL IV DATA: Not applicable SIGNED BY: Kathryn Rosenthal RT(R) June 15, 2023 1:57 PM documented in this encounter [facility] 06-11-2023 Miscellaneous Notes Daughter in Law Abby notified. Soco Karimi MA Pt has an appt with you on 06/15 for a continued cough. Daughter in law wants a CXR done prior to the appt. Order pended. Soco Karimi MA documented in this encounter [facility] 05-25-2023 Miscellaneous Notes Pharmacy faxed requesting the following refill Refill(s) Requested: Requested Prescriptions Pending Prescriptions Disp Refills triamterene-hydroCHLOROthiazide (DYAZIDE) 37.5-25 mg per capsule [Pharmacy Med Name: TRIAMTERENE-HCTZ 37.5-25 MG CP] 90 capsule 1 Sig: take 1 capsule by mouth once daily ALLERGIES Allergen Reactions Hydrocodone Unknown Morphine Hives (home) [phone] (cell) Last Office Visit Date: 05/15/2023 Last Distance Health Visit: Visit date not found Future Appointment: 11/27/2023 The patients preferred pharmacy has been captured for this encounter? yes Request is for script(s) to be escript to pharmacy. Oliva Singh MA documented in this encounter [facility] 05-15-2023 Miscellaneous Notes GASTROENTEROLOGY Referral place through the [facility] Portal on May 15, 2023. #[id number] Preferred Provider Dr. karen Smith CMA documented in this encounter [facility] 05-15-2023 Note HNO ID: [id number] Author: Julio Garcia MD Service: ? Author Type: Physician Type: Progress Notes Filed: 05/15/2023 2:02 PM Note Text: Michelle Floyd is a 83 year old female here for a Medicare wellness visit. Medicare Health Risk Assessment General Health GOOD Exercise: Minutes/Day 30 Exercise: Days/Week DAILY WALK IN THE HOUSE Alcohol: Daily Use 0 Alcohol: Drinks/Day 0 Alcohol: 6 or more drinks 0 Feel off balance SOMETIMES NO FALL Concerns: Teeth/Dentures NO Concerns: Sexual function NO Troubled by feelings NO Frequency: Eating healthy diet DAILY ADLs requiring help NO EXCEPT DRIVING Safety precautions in home/vehicle YES Smoke, vape, chews tobacco NO Difficulty hearing YES Difficulty seeing NO Current Providers Specialists: I have reviewed specialist-related care of the patient in the medical record. Medical/Family history review Reviewed and updated problem list, medical/surgical/family/social history, medications, and allergies. Opioid use review Opioid Medications (last 90 days) Some values may be hidden. Unless noted otherwise, only the newest values recorded on each date are displayed. Opioid Medications No data to display. Depression screening Depression Screening PHQ-2 Score PHQ-9 Score Score (Questions 1 AND 2) Total Score (All Questions) 05/15/2023 0 0 - - Depression screening tool completed and reviewed. Based on score and interview, patient is not at risk for depression. Screening tool discussed with patient, and I recommended no further intervention at this time. Time spent in depression screening and assessment: < 5 minutes. Cognitive screening Functional Observation Was the patient's timed Up AND Go test unsteady or ? 12 seconds? Yes Advance Care Planning Surrogate decision maker and/or advance care plan documented Has a living will. Power of title insurance examiner is her oldest son Goldy Measurements BP 110/80 Pulse 75 Ht 5' 0 (1.52m) Wt 142 lb (64.4kg) SpO2 99% BMI 27.73 kg/(m2). Additional screenings: No results found. Assessment/Plan Medicare annual wellness visit, subsequent (Z00.00) - Counseled on healthy diet and regular exercise - Fall avoidance information provided Additional Concerns The following concerns were also discussed with the patient: She is known to have hypertension and blood pressure is well controlled on 4 medications. Patient states she is compliant with her medicine. She is on statin. And last blood work from few days ago showed increase in the cholesterol and LDL. The blood work from March 2022 that I reviewed with her and it showed good control of her numbers with LDL less than 100. She states the reason why cholesterol is higher as she cannot walk that much as she did before. She used to walk with her every day. 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 Patient is on Myrbetriq for urinary incontinence and she states she does not take it every day. She had low back pain diagnosed about 4 years ago. She follows with Dr. Becker in [place] and she has shots in the back at [facility]. She is still getting mammograms. Last colonoscopy as she states was about [address] Bejarano She had a DEXA scan in 2020 that showed osteopenia. PHYSICAL EXAM BP 110/80 Pulse 75 Ht 152.4 cm (5') Wt 64.4 kg (142 lb) LMP (LMP Unknown) SpO2 99% BMI 27.73 kg/m? Physical Exam Component Latest Ref Rng AND Units 10/29/2022 04/07/2023 WBC 3.8 - 10.8 Thousand/uL 6.6 5.7 RBC 3.80 - 5.10 Million/uL 4.10 4.13 Hemoglobin 11.7 - 15.5 g/dL 13.4 13.5 Hematocrit 35.0 - 45.0 % 39.7 40.5 MCV 80.0 - 100.0 fL 96.8 98.1 MCH 27.0 - 33.0 pg 32.7 32.7 MCHC 32.0 - 36.0 g/dL 33.8 33.3 RDW-CV 11.0 - 15.0 % 12.1 12.6 Platelet Count 140 - 400 Thousand/uL 229 226 MPV 7.5 - 12.5 fL 12.0 11.2 Abs Neut (ANC) 1,500 - 7,800 cells/uL 4,171 3,021 Abs Lymph 850 - 3,900 cells/uL 1,736 1,647 Abs [place] 200 - 950 cells/uL 673 604 Abs Eosin 15 - 500 cells/uL 0 (L) 405 Abs Baso 0 - 200 cells/uL 20 23 Neut% % 63.2 53 Lymph% % 26.3 28.9 [place]% % 10.2 10.6 Eosin% % 0.0 7.1 Baso% % 0.3 0.4 Color YELLOW YELLOW Appearance (U) CLEAR CLEAR Specific [place], Ur 1.001 - 1.035 1.012 pH Urine 5.0 - 8.0 7.0 Glucose, Urine NEGATIVE NEGATIVE Bilirubin, Urine NEGATIVE NEGATIVE Ketones/Acetone NEGATIVE NEGATIVE Blood, Urine NEGATIVE NEGATIVE Protein, Urine NEGATIVE NEGATIVE Nitrites NEGATIVE NEGATIVE Leukest NEGATIVE 2+ (A) Leukocytes < OR = 5 /HPF 10-20 (A) RBC, Urine < OR = 2 /HPF NONE SEEN Squamous Epithelial Cells < OR = 5 /HPF 0-5 Bacteria NONE SEEN /HPF FEW (A) Hyaline Casts NONE SEEN /LPF NONE SEEN Glucose 65 - 99 mg/dL 101 (H) 89 BUN 7 - 25 mg/dL 13 12 Creatinine 0.60 - 0.95 mg/dL 0.76 0.60 eGFR > OR = 60 mL/min/1.73m2 78 88 BUN/CREATININE RATIO 6 - 22 (calc) NOT APPLICABLE SEE NOTE: Sodium 135 - 146 mm (more content not included)... [facility] 05-15-2023 History of Presen t illness Narrative Michelle Floyd is a 83 year old female here for a Medicare wellness visit. Medicare Health Risk Assessment General Health GOOD Exercise: Minutes/Day 30 Exercise: Days/Week DAILY WALK IN THE HOUSE Alcohol: Daily Use 0 Alcohol: Drinks/Day 0 Alcohol: 6 or more drinks 0 Feel off balance SOMETIMES NO FALL Concerns: Teeth/Dentures NO Concerns: Sexual function NO Troubled by feelings NO Frequency: Eating healthy diet DAILY ADLs requiring help NO EXCEPT DRIVING Safety precautions in home/vehicle YES Smoke, vape, chews tobacco NO Difficulty hearing YES Difficulty seeing NO Current Providers Specialists: I have reviewed specialist-related care of the patient in the medical record. Medical/Family history review Reviewed and updated problem list, medical/surgical/family/social history, medications, and allergies. Opioid use review Opioid Medications (last 90 days) Some values may be hidden. Unless noted otherwise, only the newest values recorded on each date are displayed. Opioid Medications No data to display. Depression screening Depression Screening PHQ-2 Score PHQ-9 Score Score (Questions 1 & 2) Total Score (All Questions) 05/15/2023 0 0 - - Depression screening tool completed and reviewed. Based on score and interview, patient is not at risk for depression. Screening tool discussed with patient, and I recommended no further intervention at this time. Time spent in depression screening and assessment: < 5 minutes. Cognitive screening Functional Observation Was the patient's timed Up & Go test unsteady or ? 12 seconds? Yes Advance Care Planning Surrogate decision maker and/or advance care plan documented Has a living will. Power of title insurance examiner is her oldest son Goldy Measurements BP 110/80 Pulse 75 Ht 5' 0 (1.52m) Wt 142 lb (64.4kg) SpO2 99% BMI 27.73 kg/(m^2). Additional screenings: No results found. Assessment/Plan Medicare annual wellness visit, subsequent (Z00.00) - Counseled on healthy diet and regular exercise - Fall avoidance information provided Additional Concerns The following concerns were also discussed with the patient: She is known to have hypertension and blood pressure is well controlled on 4 medications. Patient states she is compliant with her medicine. She is on statin. And last blood work from few days ago showed increase in the cholesterol and LDL. The blood work from March 2022 that I reviewed with her and it showed good control of her numbers with LDL less than 100. She states the reason why cholesterol is higher as she cannot walk that much as she did before. She used to walk with her every day. 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 Patient is on Myrbetriq for urinary incontinence and she states she does not take it every day. She had low back pain diagnosed about 4 years ago. She follows with Dr. Becker in [place] and she has shots in the back at [facility]. She is still getting mammograms. Last colonoscopy as she states was about [address] Bejarano She had a DEXA scan in 2020 that showed osteopenia. PHYSICAL EXAM BP 110/80 Pulse 75 Ht 152.4 cm (5') Wt 64.4 kg (142 lb) LMP (LMP Unknown) SpO2 99% BMI 27.73 kg/m Physical Exam Component Latest Ref Rng & Units 10/29/2022 04/07/2023 WBC 3.8 - 10.8 Thousand/uL 6.6 5.7 RBC 3.80 - 5.10 Million/uL 4.10 4.13 Hemoglobin 11.7 - 15.5 g/dL 13.4 13.5 Hematocrit 35.0 - 45.0 % 39.7 40.5 MCV 80.0 - 100.0 fL 96.8 98.1 MCH 27.0 - 33.0 pg 32.7 32.7 MCHC 32.0 - 36.0 g/dL 33.8 33.3 RDW-CV 11.0 - 15.0 % 12.1 12.6 Platelet Count 140 - 400 Thousand/uL 229 226 MPV 7.5 - 12.5 fL 12.0 11.2 Abs Neut (ANC) 1,500 - 7,800 cells/uL 4,171 3,021 Abs Lymph 850 - 3,900 cells/uL 1,736 1,647 Abs [place] 200 - 950 cells/uL 673 604 Abs Eosin 15 - 500 cells/uL 0 (L) 405 Abs Baso 0 - 200 cells/uL 20 23 Neut% % 63.2 53 Lymph% % 26.3 28.9 [place]% % 10.2 10.6 Eosin% % 0.0 7.1 Baso% % 0.3 0.4 Color YELLOW YELLOW Appearance (U) CLEAR CLEAR Specific [place], Ur 1.001 - 1.035 1.012 pH Urine 5.0 - 8.0 7.0 Glucose, Urine NEGATIVE NEGATIVE Bilirubin, Urine NEGATIVE NEGATIVE Ketones/Acetone NEGATIVE NEGATIVE Blood, Urine NEGATIVE NEGATIVE Protein, Urine NEGATIVE NEGATIVE Nitrites NEGATIVE NEGATIVE Leukest NEGATIVE 2+ (A) Leukocytes < OR = 5 /HPF 10-20 (A) RBC, Urine < OR = 2 /HPF NONE SEEN Squamous Epithelial Cells < OR = 5 /HPF 0-5 Bacteria NONE SEEN /HPF FEW (A) Hyaline Casts NONE SEEN /LPF NONE SEEN Glucose 65 - 99 mg/dL 101 (H) 89 BUN 7 - 25 mg/dL 13 12 Creatinine 0.60 - 0.95 mg/dL 0.76 0.60 eGFR > OR = 60 mL/min/1.73m2 78 88 BUN/CREATININE RATIO 6 - 22 (calc) NOT APPLICABLE SEE NOTE: Sodium 135 - 146 mmol/L 138 136 Potassium 3.5 - 5.3 mmol/L 4.0 4.2 Chloride 98 - 110 mmol/L 101 99 CO2 20 - 32 mmol/L 29 28 Calcium 8.6 - 10.4 mg/dL 9.3 9.2 Protein, Total 6.1 - 8.1 g/dL 7.0 6.8 Albumin 3.6 - 5.1 g/dL 4.3 4.2 GLOBULIN 1.9 - 3.7 g/dL (calc) 2.7 2.6 Alb/Glob Ratio 1.0 - 2.5 (calc) 1.6 1.6 Bilirubin, Total 0.2 - 1.2 mg/dL 0.6 0.7 Bilirubin, Conjug < OR = 0.2 mg/dL 0.1 0.1 Bilirubin, Unconjug 0.2 - 1.2 mg/dL (calc) 0.5 0.6 Alkaline Phosphatase 37 - 153 U/L 53 44 AST 10 - 35 U/L 21 20 ALT 6 - 29 U/L 14 14 Cholesterol, Total <200 mg/dL 203 (H) 190 HDL Cholesterol > OR = 50 mg/dL 55 48 (L) Triglyceride <150 mg/dL 127 170 (H) LDL Cholesterol mg/dL (calc) 124 (H) 113 (H) TC:HDL Ratio <5.0 (calc) 3.7 4.0 NON-HDL CHOLESTEROL <130 mg/dL (calc) 148 (H) 142 (H) Vit D, 25-OH, Total 30 - 100 ng/mL 33 31 TSH 0.40 - 4.50 mIU/L 1.77 2.38 Hemoglobin A1C <5.7 % of total Hgb 5.6 5.8 (H) Vitamin B12 200 - 1,100 pg/mL 660 ASSESSMENT/PLAN: 1. Encounter for Medicare annual wellness exam - ICD9: V70.0, ICD10: Z00.00 (primary diagnosis) - Counseled on healthy diet and regular exercise - Calcium intake with supplements or by diet of 1000 mg/day for under 50, 0806-7025 mg/day for 50+ - Pap patient aged out - Colorectal cancer screening: No longer performed. - Mammogram ordered -last mammogram was 2020 and it was normal. Declines more mammograms: Last - Bone mineral density bone mineral density was December 2020 and it showed osteopenia - Depression screening tool completed and reviewed with patient. Based on score and interview, patient is not at risk for depression and recommended no further intervention at this time. - Patient was counseled ylsu-wu-oxoy by myself (the billing provider) for the following immunizations and vaccine components, including side effects: Shingrix. She states she had Shingrix vaccine years ago. Patient consents for immunization and understands risks and benefits. A VIS sheet on each immunization was given to the patient. - CBC + DIFF - BASIC METABOLIC PNL - LIPID PANEL BASIC - HGB A1C - HEPATIC FUNCTION PNL - TSH BLD - VITAMIN D 25 HYDROXY 2. Chronic cough - ICD9: 786.2, ICD10: R05.3 She still have chronic cough but it is better with the loratadine and PPI. 3. Dysphagia, unspecified type - ICD9: 787.20, ICD10: R13.10 The states that she has episodes of choking especially if she eats something dry or hard to chew. She would have episodes of dysphagia that the patient was agreeable on having them. I suggested that she would be seen by gastroenterology for EGD for evaluation - CONSULT TO GASTROENTEROLOGY 4. Gastroesophageal reflux disease without esophagitis - ICD9: 530.81, ICD10: K21.9 - Discussed lifestyle modifications including no meals three hours before sleep and head of bed elevation - Continue treatment with omeprazole - CONSULT TO GASTROENTEROLOGY 5. Primary hypertension - ICD9: 401.9, ICD10: I10 - Controlled - Continue current medications - Recommend home blood pressure monitoring, to bring results to next visit - Encouraged sodium restriction, DASH or Mediterranean diet - Recommend regular aerobic exercise - CBC + DIFF - BASIC METABOLIC PNL 6. Dyslipidemia - ICD9: 272.4, ICD10: E78.5 - Controlled - Continue current medications - Counseled on healthy diet and regular exercise - LIPID PANEL BASIC - HEPATIC FUNCTION PNL - TSH BLD 7. Sensorineural hearing loss (SNHL) of both ears - ICD9: 389.18, ICD10: H90.3 She wears hearing aids. 8. Prediabetes - ICD9: 790.29, ICD10: R73.03 She is not on any medication and hemoglobin A1c has been stable - HGB A1C 9. Chronic midline low back pain without sciatica - ICD9: 724.2, 338.29, ICD10: M54.50, G89.29 She has chronic midline back pain. She cannot tolerate the meloxicam and she cannot take the NSAIDs. I do not suggest cyclobenzaprine. I suggested diclofenac gel. Patient could also follow-up with her pain management 10. Chronic bilateral low back pain with bilateral sciatica - ICD9: 724.2, 724.3, 338.29, ICD10: M54.42, M54.41, G89.29 As above #9 11. Vitamin D deficiency - ICD9: 268.9, ICD10: E55.9 - VITAMIN D 25 HYDROXY Julio Kirby MD documented in this encounter [facility] 05-15-2023 Instructions Julio Garcia MD - 05/15/2023 10:33 AM EDT Screening schedule The following prevention plan is recommended: DTaP,Tdap,Td Vaccine(1 - Tdap) Never done Shingrix Vaccine(1 of 2) Never done RSV Vaccine(1 - 1-dose 60+ series) Never done Advance Directive Discussion Never done WHAT YOU CAN DO TO PREVENT FALLS Many falls can be prevented. By making some changes, you can lower your chances of falling. Four things YOU can do to prevent falls for you* and your caregiver 1. Begin a regular exercise program Exercise is one of the most important ways to lower your chances of falling. It makes you stronger and helps you feel better. Exercises that improve balance and coordination (like [place]) are the most helpful. Lack of exercise leads to weakness and increases your chances of falling. Ask your doctor or health care provider about the best type of exercise program for you. 2. Have your health care provider review your medicines Have your doctor or pharmacist review all the medicines you take, even qjlr-ehx-rfbuchp medicines. As you get older, the way medicines work in your body can change. Some medicines, or combinations of medicines, can make you sleepy or dizzy and can cause you to fall. 3. Have your vision checked Have your eyes checked by an eye doctor at least once a year. You may be wearing the wrong glasses or have a condition like glaucoma or cataracts that limits your vision. Poor vision can increase your chances of falling. 4. Make your home safer About half of all falls happen at home. To make your home safer: Remove things you can trip over (like papers, books, clothes, and shoes) from stairs and places where you walk. Remove small throw rugs or use double-sided tape to keep the rugs from slipping. Keep items you use often in cabinets you can reach easily without using a step stool. Have grab bars put in next to your toilet and in the tub or shower. Use non-slip mats in the bathtub and on shower floors. Improve the lighting in your home. As you get older, you need brighter lights to see well. Hang light-weight curtains or shades to reduce glare. Have handrails and lights put in on all staircases. Wear shoes both inside and outside the house. Avoid going barefoot or wearing slippers. For more information, contact: Centers for Disease Control and Prevention www.cdc.gov/injury * This information may not apply if you have certain medical conditions. documented in this encounter [facility] 03-23-2023 Note HNO ID: [id number] Author: Julio Garcia MD Service: ? Author Type: Physician Type: Progress Notes Filed: 03/23/2023 9:18 AM Note Text: Visit Date: March 23, 2023 Ms.Patricia Stefany Floyd Date of : 1940 MRN/E #: [id number] Chief Complaint Patient presents with: Cough: Slightly productive cough. Wants throat checked History of present illness Michelle Floyd is a 83 year old female. HPI Patient is here today with and zguuxdod-yj-xsm to follow-up on coughing. Patient started coughing about 3 weeks ago as she was sitting outside with her . The cough is pretty dry. She has throat clearing or postnasal drip. She did not feel acid reflux symptoms per se but she was started on Prilosec. Patient states that she needs refill on the medication. No antibiotic was prescribed. She had Tessalon Perles that were collected but then stopped working at this point. The cough is slightly better but the states she coughs on and off all day long. She was coughing at night but not anymore and not that much as the states. Has no wheezing or shortness of breath. She has no fever A chest x-ray was done recently and did not show any major finding or acute finding. Her gykttaq-ki-enl had the same symptoms at the same time PAIN EVALUATION No data found in the last 1 encounters. ALLERGIES Allergen Reactions Hydrocodone Unknown Morphine Hives No past medical history on file. PAST SURGICAL HISTORY Procedure Laterality Date PAST SURGICAL HISTORY OF C section x 2 PAST SURGICAL HISTORY OF Bilateral Cataract, eye lid lift TONSILLECTOMY AND ADENOIDECTOMY Social History Tobacco Use Smoking status: Never Smokeless tobacco: Never Vaping Use Vaping Use: Never used Substance Use Topics Alcohol use: No Drug use: No FAMILY HISTORY Problem Relation Age of Onset Aneurysm Mother AAA Heart Attack Mother Alzheimer's Disease Father Rheumatologic disease Brother RA other () Granddaughter Review of Systems Constitutional: Negative for chills, fever, malaise/fatigue and weight loss. HENT: Negative for congestion, ear discharge, ear pain, sinus pain and sore throat. Eyes: Negative for blurred vision and double vision. Respiratory: Positive for cough. Negative for hemoptysis, sputum production, shortness of breath, wheezing and stridor. Cardiovascular: Negative for chest pain, palpitations, orthopnea, claudication, leg swelling and PND. Gastrointestinal: Negative for abdominal pain, blood in stool, constipation, diarrhea, heartburn, melena, nausea and vomiting. Genitourinary: Negative for dysuria, frequency, hematuria and urgency. Musculoskeletal: Negative for back pain, joint pain and myalgias. Skin: Negative for itching and rash. Neurological: Negative for dizziness, tingling, tremors, seizures, loss of consciousness and headaches. Endo/Heme/Allergies: Negative for environmental allergies. Psychiatric/Behavioral: Negative for depression and suicidal ideas. The patient is not nervous/anxious. Physical Exam Constitutional: General: She is not in acute distress. Appearance: Normal appearance. She is not ill-appearing. HENT: Head: Normocephalic and atraumatic. Right Ear: Tympanic membrane, ear canal and external ear normal. Left Ear: Tympanic membrane, ear canal and external ear normal. Nose: Nose normal. Mouth/Throat: Mouth: Mucous membranes are moist. Pharynx: No oropharyngeal exudate (claritin). Eyes: Conjunctiva/sclera: Conjunctivae normal. Pupils: Pupils are equal, round, and reactive to light. Neck: Vascular: No carotid bruit. Cardiovascular: Rate and Rhythm: Normal rate and regular rhythm. Heart sounds: Normal heart sounds. No murmur heard. Pulmonary: Effort: Pulmonary effort is normal. No respiratory distress. Breath sounds: Normal breath sounds. No stridor. No wheezing, rhonchi or rales. Musculoskeletal: General: No swelling or tenderness. Normal range of motion. Cervical back: Normal range of motion and neck supple. No rigidity or tenderness. Lymphadenopathy: Cervical: No cervical adenopathy. Skin: General: Skin is warm. Coloration: Skin is not jaundiced or pale. Neurological: General: No focal deficit present. Mental Status: She is alert and oriented to person, place, and time. Psychiatric: Mood and Affect: Mood and affect normal. Cognition and Memory: Memory normal. Judgment: Judgment normal. BP 140/80 Pulse 101 Ht 5' 0 (1.52m) Wt 137 lb (62.1kg) SpO2 99% BMI 26.76 kg/(m2). ASSESSMENT/PLAN: 1. Dry cough - ICD9: 786.2, ICD10: R05.8 (primary diagnosis) Patient has dry cough and evidently clearing her throat during the visit. She did that several times. We agreed on giving loratadine or any allergy medication and patient to use Flonase twice daily at first then once daily after a week or 2. Patient will update me on her symptoms. Also heri (more content not included)... [facility] 03-23-2023 Instructions Julio Garcia MD - 03/23/2023 9:18 AM EDT ASSESSMENT/PLAN: 1. Dry cough - ICD9: 786.2, ICD10: R05.8 (primary diagnosis) Patient has dry cough and evidently clearing her throat during the visit. She did that several times. We agreed on giving loratadine or any allergy medication and patient to use Flonase twice daily at first then once daily after a week or 2. Patient will update me on her symptoms. Also suggest to continue with omeprazole. - LORATADINE 10 MG TABLET 2. Environmental allergies - ICD9: V15.09, ICD10: Z91.09 Likely environmental allergies/postnasal drip Julio Kirby MD documented in this encounter [facility] 03-23-2023 History of Presen t illness Narrative Visit Date: March 23, 2023 Ms.Patricia Stefany Floyd Date of : 1940 MRN/E #: [id number] Chief Complaint Patient presents with: Cough: Slightly productive cough. Wants throat checked History of present illness Michelle Floyd is a 83 year old female. HPI Patient is here today with and [id number] to follow-up on coughing. Patient started coughing about 3 weeks ago as she was sitting outside with her . The cough is pretty dry. She has throat clearing or postnasal drip. She did not feel acid reflux symptoms per se but she was started on Prilosec. Patient states that she needs refill on the medication. No antibiotic was prescribed. She had Tessalon Perles that were collected but then stopped working at this point. The cough is slightly better but the states she coughs on and off all day long. She was coughing at night but not anymore and not that much as the states. Has no wheezing or shortness of breath. She has no fever A chest x-ray was done recently and did not show any major finding or acute finding. Her [id number] had the same symptoms at the same time PAIN EVALUATION No data found in the last 1 encounters. ALLERGIES Allergen Reactions Hydrocodone Unknown Morphine Hives No past medical history on file. PAST SURGICAL HISTORY Procedure Laterality Date PAST SURGICAL HISTORY OF C section x 2 PAST SURGICAL HISTORY OF Bilateral Cataract, eye lid lift TONSILLECTOMY & ADENOIDECTOMY <AGE 11 Social History Tobacco Use Smoking status: Never Smokeless tobacco: Never Vaping Use Vaping Use: Never used Substance Use Topics Alcohol use: No Drug use: No FAMILY HISTORY Problem Relation Age of Onset Aneurysm Mother AAA Heart Attack Mother Alzheimer's Disease Father Rheumatologic disease Brother RA other () Granddaughter Review of Systems Constitutional: Negative for chills, fever, malaise/fatigue and weight loss. HENT: Negative for congestion, ear discharge, ear pain, sinus pain and sore throat. Eyes: Negative for blurred vision and double vision. Respiratory: Positive for cough. Negative for hemoptysis, sputum production, shortness of breath, wheezing and stridor. Cardiovascular: Negative for chest pain, palpitations, orthopnea, claudication, leg swelling and PND. Gastrointestinal: Negative for abdominal pain, blood in stool, constipation, diarrhea, heartburn, melena, nausea and vomiting. Genitourinary: Negative for dysuria, frequency, hematuria and urgency. Musculoskeletal: Negative for back pain, joint pain and myalgias. Skin: Negative for itching and rash. Neurological: Negative for dizziness, tingling, tremors, seizures, loss of consciousness and headaches. Endo/Heme/Allergies: Negative for environmental allergies. Psychiatric/Behavioral: Negative for depression and suicidal ideas. The patient is not nervous/anxious. Physical Exam Constitutional: General: She is not in acute distress. Appearance: Normal appearance. She is not ill-appearing. HENT: Head: Normocephalic and atraumatic. Right Ear: Tympanic membrane, ear canal and external ear normal. Left Ear: Tympanic membrane, ear canal and external ear normal. Nose: Nose normal. Mouth/Throat: Mouth: Mucous membranes are moist. Pharynx: No oropharyngeal exudate (claritin). Eyes: Conjunctiva/sclera: Conjunctivae normal. Pupils: Pupils are equal, round, and reactive to light. Neck: Vascular: No carotid bruit. Cardiovascular: Rate and Rhythm: Normal rate and regular rhythm. Heart sounds: Normal heart sounds. No murmur heard. Pulmonary: Effort: Pulmonary effort is normal. No respiratory distress. Breath sounds: Normal breath sounds. No stridor. No wheezing, rhonchi or rales. Musculoskeletal: General: No swelling or tenderness. Normal range of motion. Cervical back: Normal range of motion and neck supple. No rigidity or tenderness. Lymphadenopathy: Cervical: No cervical adenopathy. Skin: General: Skin is warm. Coloration: Skin is not jaundiced or pale. Neurological: General: No focal deficit present. Mental Status: She is alert and oriented to person, place, and time. Psychiatric: Mood and Affect: Mood and affect normal. Cognition and Memory: Memory normal. Judgment: Judgment normal. BP 140/80 Pulse 101 Ht 5' 0 (1.52m) Wt 137 lb (62.1kg) SpO2 99% BMI 26.76 kg/(m^2). ASSESSMENT/PLAN: 1. Dry cough - ICD9: 786.2, ICD10: R05.8 (primary diagnosis) Patient has dry cough and evidently clearing her throat during the visit. She did that several times. We agreed on giving loratadine or any allergy medication and patient to use Flonase twice daily at first then once daily after a week or 2. Patient will update me on her symptoms. Also suggest to continue with omeprazole. - LORATADINE 10 MG TABLET 2. Environmental allergies - ICD9: V15.09, ICD10: Z91.09 Likely environmental allergies/postnasal drip Julio Kirby MD documented in this encounter [facility] 03-16-2023 Note HNO ID: [id number] Author: Rosita Frausto RT(R) Service: Radiology Author Type: Technologist Type: Progress Notes Filed: 03/16/2023 2:04 PM Note Text: Radiology Service Progress Note PATIENT NAME: Michelle Floyd DATE OF SERVICE: March 16, 2023 TIME: 2:04 PM PATIENT IDENTITY VERIFICATION COMPLETED USING TWO (2) IDENTIFIERS: Name and Date of confirmed by patient verbally. FALL SCREENING: Has the patient had 2 falls in the last year or 1 fall with injury or currently using an Ambulatory Assistive Device (Walker, Cane, Wheelchair, Crutches, etc.)? No PATIENT GENDER DATA: Female. status: : No status: NO. PATIENT RELEVANT IMPLANT DATA REVIEWED: Not Applicable RADIOLOGY DEPARTMENT: General X-ray: Exam(s) Completed: Chest X-Ray PERIPHERAL IV DATA: Not applicable SIGNED BY: RT Navdeep(R) March 16, 2023 2:04 PM [facility] 03-16-2023 History of Presen t illness Narrative Radiology Service Progress Note PATIENT NAME: Michelle Floyd DATE OF SERVICE: March 16, 2023 TIME: 2:04 PM PATIENT IDENTITY VERIFICATION COMPLETED USING TWO (2) IDENTIFIERS: Name and Date of confirmed by patient verbally. FALL SCREENING: Has the patient had 2 falls in the last year or 1 fall with injury or currently using an Ambulatory Assistive Device (Walker, Cane, Wheelchair, Crutches, etc.)? No PATIENT GENDER DATA: Female. status: : No status: NO. PATIENT RELEVANT IMPLANT DATA REVIEWED: Not Applicable RADIOLOGY DEPARTMENT: General X-ray: Exam(s) Completed: Chest X-Ray PERIPHERAL IV DATA: Not applicable SIGNED BY: RT Navdeep(R) March 16, 2023 2:04 PM documented in this encounter [facility] 02-09-2023 Miscellaneous Notes Daughter in law notified. Soco Karimi MA Chest x-ray ordered. Mercedes Vela sent to her pharmacy. Would like to also omeprazole 20 mg daily for possible GERD. Should think about ramipril being the culprit and the cough if it persists. Pt's daughter in law Abby called saying that pt has had a cough for 2 weeks. O2 sat is at 96%, no SOB. Daughter is a retired nurse so she listened to pt's lungs and said that they sounded clear. There were some crackles at the bases but they cleared with a cough she said. She is requesting a Rx for Tessalon Pearls. Soco Karimi MA documented in this encounter [facility] 12-01-2022 Miscellaneous Notes Last OV 11/06/2022. Soco Ambriz MA documented in this encounter [facility] 11-24-2022 Miscellaneous Notes Pt's daughter in law notified. Soco Ambriz MA The CT scan of the abdomen and pelvis did not show any acute finding. you have diverticulosis and not diverticulitis. So they are not inflamed or infected. The diverticulosis are the small pouches that extend out of the colon mainly in the terminal colon and sometimes they get infected with pain and fever. Your left lower abdominal pain could be explained by the diverticulosis. You have cholelithiasis which is gallbladder stones and you do not have inflammation if you are interested in taking out the gallbladder and if you have symptoms in the right upper abdomen I can refer you to surgery. Otherwise you have calcification of the coronary arteries seen on the CT scan and I would like you to be seen by cardiology. Please let me know if you are agreeable on that and if you have a cardiology name in mind Please review pt's recent CT scan. Soco Ambriz MA documented in this encounter [facility] 11-20-2022 Note HNO ID: [id number] Author: RT Gabriela(R) Service: Radiology Author Type: Technologist Type: Progress Notes Filed: 11/20/2022 3:15 PM Note Text: Radiology Service Progress Note PATIENT NAME: Michelle Floyd DATE OF SERVICE: November 20, 2022 TIME: 3:15 PM PATIENT IDENTITY VERIFICATION COMPLETED USING TWO (2) IDENTIFIERS: Name and Date of confirmed by patient verbally and Name and Date of confirmed by identification band. FALL SCREENING: Has the patient had 2 falls in the last year or 1 fall with injury or currently using an Ambulatory Assistive Device (Walker, Cane, Wheelchair, Crutches, etc.)? No PATIENT GENDER DATA: Female. status: : No status: NO. PATIENT RELEVANT IMPLANT DATA REVIEWED: Not Applicable RADIOLOGY DEPARTMENT: CT; Exam(s) Completed: Abdomen/Pelvis PERIPHERAL IV DATA: Not applicable SIGNED BY: RT Gabriela(R) November 20, 2022 3:15 PM [facility] 11-20-2022 History of Presen t illness Narrative Radiology Service Progress Note PATIENT NAME: Michelle Floyd DATE OF SERVICE: November 20, 2022 TIME: 3:15 PM PATIENT IDENTITY VERIFICATION COMPLETED USING TWO (2) IDENTIFIERS: Name and Date of confirmed by patient verbally and Name and Date of confirmed by identification band. FALL SCREENING: Has the patient had 2 falls in the last year or 1 fall with injury or currently using an Ambulatory Assistive Device (Walker, Cane, Wheelchair, Crutches, etc.)? No PATIENT GENDER DATA: Female. status: : No status: NO. PATIENT RELEVANT IMPLANT DATA REVIEWED: Not Applicable RADIOLOGY DEPARTMENT: CT; Exam(s) Completed: Abdomen/Pelvis PERIPHERAL IV DATA: Not applicable SIGNED BY: RT Gabriela(Eliseo) November 20, 2022 3:15 PM documented in this encounter [facility] 11-12-2022 Miscellaneous Notes Last OV 11/06/2022. Soco Ambriz MA documented in this encounter [facility] 11-10-2022 Miscellaneous Notes Last OV 11/06/2022. Soco Ambriz MA documented in this encounter [facility] 11-07-2022 Miscellaneous Notes Addended by: SOCO AMBRIZ on: 11/07/2022 10:16 AM Modules accepted: Orders documented in this encounter [facility] 11-06-2022 Note HNO ID: [id number] Author: Julio Kirby MD Service: ? Author Type: Physician Type: Progress Notes Filed: 11/06/2022 8:50 PM Note Text: Visit Date: November 06, 2022 Ms.Patricia Stefany Floyd Date of : 1940 MRN/E #: [id number] Chief Complaint Patient presents with: Follow Up: No new complaints History of present illness Michelle Floyd is a 82 year old female. HPI patient is here today for follow-up on blood work. She is with her and stepdaughter. She has no major concerns today. She is known to have hypertension and blood pressure is well controlled on 4 medications. Patient states she is compliant with her medicine. She is on statin. And last blood work from few days ago showed increase in the cholesterol and LDL. The blood work from March 2022 that I reviewed with her and it showed good control of her numbers with LDL less than 100. She states the reason why cholesterol is higher as she cannot walk that much as she did before. She used to walk with her every day. 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 Patient is on Myrbetriq for urinary incontinence and she states she does not take it every day. She had low back pain diagnosed about 4 years ago. She follows with Dr. Becker in [place] and she has shots in the back at [facility]. She is still getting mammograms. Last colonoscopy as she states was about [address] Bejarano She had a DEXA scan in 2020 that showed osteopenia. PAIN EVALUATION No data found in the last 1 encounters. ALLERGIES Allergen Reactions Hydrocodone Unknown Morphine Hives No past medical history on file. PAST SURGICAL HISTORY Procedure Laterality Date PAST SURGICAL HISTORY OF C section x 2 PAST SURGICAL HISTORY OF Bilateral Cataract, eye lid lift TONSILLECTOMY AND ADENOIDECTOMY Social History Tobacco Use Smoking status: Never Smokeless tobacco: Never Vaping Use Vaping Use: Never used Substance Use Topics Alcohol use: No Drug use: No FAMILY HISTORY Problem Relation Age of Onset Aneurysm Mother AAA Heart Attack Mother Alzheimer's Disease Father Rheumatologic disease Brother RA other () Granddaughter Review of Systems Constitutional: Negative for chills, fever, malaise/fatigue and weight loss. HENT: Negative for congestion, ear discharge, ear pain, sinus pain and sore throat. Eyes: Negative for blurred vision, double vision and pain. Respiratory: Negative for cough, sputum production, shortness of breath and wheezing. Cardiovascular: Negative for chest pain, palpitations, orthopnea, claudication, leg swelling and PND. Gastrointestinal: Negative for abdominal pain, blood in stool, constipation, diarrhea, heartburn, melena, nausea and vomiting. Genitourinary: Positive for frequency and urgency. Negative for dysuria and hematuria. Musculoskeletal: Positive for back pain. Negative for joint pain, myalgias and neck pain. Neurological: Negative for dizziness, tingling, tremors, seizures, loss of consciousness and headaches. Endo/Heme/Allergies: Negative for environmental allergies. Psychiatric/Behavioral: Negative for depression, substance abuse and suicidal ideas. The patient is not nervous/anxious and does not have insomnia. Physical Exam Constitutional: General: She is not in acute distress. Appearance: Normal appearance. She is not ill-appearing. HENT: Head: Normocephalic and atraumatic. Right Ear: Tympanic membrane, ear canal and external ear normal. Left Ear: Tympanic membrane, ear canal and external ear normal. Nose: Nose normal. Mouth/Throat: Mouth: Mucous membranes are moist. Pharynx: Oropharynx is clear. Eyes: Conjunctiva/sclera: Conjunctivae normal. Pupils: Pupils are equal, round, and reactive to light. Neck: Vascular: No carotid bruit. Cardiovascular: Rate and Rhythm: Normal rate and regular rhythm. Heart sounds: Normal heart sounds. No murmur heard. Pulmonary: Effort: Pulmonary effort is normal. No respiratory distress. Breath sounds: Normal breath sounds. No stridor. No wheezing, rhonchi or rales. Abdominal: General: Bowel sounds are normal. There is no distension. Palpations: Abdomen is soft. There is mass. Tenderness: There is no abdominal tenderness. There is no guarding or rebound. Hernia: No hernia is present. Comments: Palpable mass left lower quadrant and little bit higher than the lower quadrant. It is not painful on palpation and it is movable.? Stool in the colon Musculoskeletal: General: No swelling or tenderness. Normal range of motion. Cervical back: Normal range of motion and neck supple. No rigidity or tenderness. Lymphadenopathy: Cervical: No cervical adenopathy. Skin: General: Skin is warm. Coloration: Skin is not jaundiced or pale. Neurological: General: No focal deficit present. Mental Status: She is a (more content not included)... [facility] 11-06-2022 History of Presen t illness Narrative Visit Date: November 06, 2022 Ms.Patricia Stefany Floyd Date of : 1940 MRN/E #: [id number] Chief Complaint Patient presents with: Follow Up: No new complaints History of present illness Michelle Floyd is a 82 year old female. HPI patient is here today for follow-up on blood work. She is with her and stepdaughter. She has no major concerns today. She is known to have hypertension and blood pressure is well controlled on 4 medications. Patient states she is compliant with her medicine. She is on statin. And last blood work from few days ago showed increase in the cholesterol and LDL. The blood work from March 2022 that I reviewed with her and it showed good control of her numbers with LDL less than 100. She states the reason why cholesterol is higher as she cannot walk that much as she did before. She used to walk with her every day. 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 Patient is on Myrbetriq for urinary incontinence and she states she does not take it every day. She had low back pain diagnosed about 4 years ago. She follows with Dr. Becker in [place] and she has shots in the back at [facility]. She is still getting mammograms. Last colonoscopy as she states was about [address] Bejarano She had a DEXA scan in 2020 that showed osteopenia. PAIN EVALUATION No data found in the last 1 encounters. ALLERGIES Allergen Reactions Hydrocodone Unknown Morphine Hives No past medical history on file. PAST SURGICAL HISTORY Procedure Laterality Date PAST SURGICAL HISTORY OF C section x 2 PAST SURGICAL HISTORY OF Bilateral Cataract, eye lid lift TONSILLECTOMY & ADENOIDECTOMY <AGE 11 Social History Tobacco Use Smoking status: Never Smokeless tobacco: Never Vaping Use Vaping Use: Never used Substance Use Topics Alcohol use: No Drug use: No FAMILY HISTORY Problem Relation Age of Onset Aneurysm Mother AAA Heart Attack Mother Alzheimer's Disease Father Rheumatologic disease Brother RA other () Granddaughter Review of Systems Constitutional: Negative for chills, fever, malaise/fatigue and weight loss. HENT: Negative for congestion, ear discharge, ear pain, sinus pain and sore throat. Eyes: Negative for blurred vision, double vision and pain. Respiratory: Negative for cough, sputum production, shortness of breath and wheezing. Cardiovascular: Negative for chest pain, palpitations, orthopnea, claudication, leg swelling and PND. Gastrointestinal: Negative for abdominal pain, blood in stool, constipation, diarrhea, heartburn, melena, nausea and vomiting. Genitourinary: Positive for frequency and urgency. Negative for dysuria and hematuria. Musculoskeletal: Positive for back pain. Negative for joint pain, myalgias and neck pain. Neurological: Negative for dizziness, tingling, tremors, seizures, loss of consciousness and headaches. Endo/Heme/Allergies: Negative for environmental allergies. Psychiatric/Behavioral: Negative for depression, substance abuse and suicidal ideas. The patient is not nervous/anxious and does not have insomnia. Physical Exam Constitutional: General: She is not in acute distress. Appearance: Normal appearance. She is not ill-appearing. HENT: Head: Normocephalic and atraumatic. Right Ear: Tympanic membrane, ear canal and external ear normal. Left Ear: Tympanic membrane, ear canal and external ear normal. Nose: Nose normal. Mouth/Throat: Mouth: Mucous membranes are moist. Pharynx: Oropharynx is clear. Eyes: Conjunctiva/sclera: Conjunctivae normal. Pupils: Pupils are equal, round, and reactive to light. Neck: Vascular: No carotid bruit. Cardiovascular: Rate and Rhythm: Normal rate and regular rhythm. Heart sounds: Normal heart sounds. No murmur heard. Pulmonary: Effort: Pulmonary effort is normal. No respiratory distress. Breath sounds: Normal breath sounds. No stridor. No wheezing, rhonchi or rales. Abdominal: General: Bowel sounds are normal. There is no distension. Palpations: Abdomen is soft. There is mass. Tenderness: There is no abdominal tenderness. There is no guarding or rebound. Hernia: No hernia is present. Comments: Palpable mass left lower quadrant and little bit higher than the lower quadrant. It is not painful on palpation and it is movable.? Stool in the colon Musculoskeletal: General: No swelling or tenderness. Normal range of motion. Cervical back: Normal range of motion and neck supple. No rigidity or tenderness. Lymphadenopathy: Cervical: No cervical adenopathy. Skin: General: Skin is warm. Coloration: Skin is not jaundiced or pale. Neurological: General: No focal deficit present. Mental Status: She is alert and oriented to person, place, and time. Psychiatric: Mood and Affect: Mood and affect normal. Cognition and Memory: Memory normal. Judgment: Judgment normal. BP 112/70 Pulse 52 Wt 138 lb 3.2 oz (62.7kg) SpO2 100% Labs and Imaging: Component Latest Ref Rng & Units 10/29/2022 WBC 3.8 - 10.8 Thousand/uL 6.6 RBC 3.80 - 5.10 Million/uL 4.10 Hemoglobin 11.7 - 15.5 g/dL 13.4 Hematocrit 35.0 - 45.0 % 39.7 MCV 80.0 - 100.0 fL 96.8 MCH 27.0 - 33.0 pg 32.7 MCHC 32.0 - 36.0 g/dL 33.8 RDW-CV 11.0 - 15.0 % 12.1 Platelet Count 140 - 400 Thousand/uL 229 MPV 7.5 - 12.5 fL 12.0 Abs Neut (ANC) 1,500 - 7,800 cells/uL 4,171 Abs Lymph 850 - 3,900 cells/uL 1,736 Abs [place] 200 - 950 cells/uL 673 Abs Eosin 15 - 500 cells/uL 0 (L) Abs Baso 0 - 200 cells/uL 20 Neut% % 63.2 Lymph% % 26.3 [place]% % 10.2 Eosin% % 0.0 Baso% % 0.3 Glucose 65 - 99 mg/dL 101 (H) BUN 7 - 25 mg/dL 13 Creatinine 0.60 - 0.95 mg/dL 0.76 eGFR > OR = 60 mL/min/1.73m2 78 BUN/CREATININE RATIO 6 - 22 (calc) NOT APPLICABLE Sodium 135 - 146 mmol/L 138 Potassium 3.5 - 5.3 mmol/L 4.0 Chloride 98 - 110 mmol/L 101 CO2 20 - 32 mmol/L 29 Calcium 8.6 - 10.4 mg/dL 9.3 Protein, Total 6.1 - 8.1 g/dL 7.0 Albumin 3.6 - 5.1 g/dL 4.3 GLOBULIN 1.9 - 3.7 g/dL (calc) 2.7 Alb/Glob Ratio 1.0 - 2.5 (calc) 1.6 Bilirubin, Total 0.2 - 1.2 mg/dL 0.6 Bilirubin, Conjug < OR = 0.2 mg/dL 0.1 Bilirubin, Unconjug 0.2 - 1.2 mg/dL (calc) 0.5 Alkaline Phosphatase 37 - 153 U/L 53 AST 10 - 35 U/L 21 ALT 6 - 29 U/L 14 Cholesterol, Total <200 mg/dL 203 (H) HDL Cholesterol > OR = 50 mg/dL 55 Triglyceride <150 mg/dL 127 LDL Cholesterol mg/dL (calc) 124 (H) TC:HDL Ratio <5.0 (calc) 3.7 NON-HDL CHOLESTEROL <130 mg/dL (calc) 148 (H) Vit D, 25-OH, Total 30 - 100 ng/mL 33 TSH 0.40 - 4.50 mIU/L 1.77 Hemoglobin A1C <5.7 % of total Hgb 5.6 ASSESSMENT/PLAN: 1. Primary hypertension - ICD9: 401.9, ICD10: I10 (primary diagnosis) - good control - Continue current medication(s) - Encouraged dietary sodium restriction/DASH diet - Recommended regular aerobic exercise. - Recommend home blood pressure monitoring, to bring results in on next visit - Goal of BP <130/80 - BASIC METABOLIC PNL - CBC + DIFF - URINALYSIS, WITH MICROSCOPIC 2. Primary insomnia - ICD9: 307.42, ICD10: F51.01 As in HPI. Patient is on mirtazapine 3. Urinary incontinence, unspecified type - ICD9: 788.30, ICD10: R32 She is on Myrbetriq but she does not take it every day. I encouraged her to do so to control her symptoms 4. Dyslipidemia - ICD9: 272.4, ICD10: E78.5 - good control - Continue current medication. - Encouraged following a low fat, low cholesterol diet. - Discussed the benefits of regular aerobic exercise and weight loss. - TSH BLD - HEPATIC FUNCTION PNL - LIPID PANEL BASIC 5. Chronic midline low back pain without sciatica - ICD9: 724.2, 338.29, ICD10: M54.50, G89.29 As in the HPI she follows with pain management and she has suggested meloxicam today. Kidney function is normal - MELOXICAM 15 MG TABLET 6. High blood sugar - ICD9: 790.29, ICD10: R73.9 - HGB A1C 7. Vitamin D deficiency - ICD9: 268.9, ICD10: E55.9 - VITAMIN D 25 HYDROXY 8. Vitamin B12 deficiency - ICD9: 266.2, ICD10: E53.8 - VITAMIN B12 BLOOD 9. Intra-abdominal and pelvic swelling, mass and lump, unspecified site - ICD9: 789.30, ICD10: R19.00 Palpated mass in the left lower quadrant and slightly above. Not sure if it is chronic stools or mass. Patient does not have complaints of pain if is not palpated. I do recommend a CT scan of the abdomen and pelvis. - CT ABD/PEL WO IVCON 10. Left lower quadrant abdominal pain - ICD9: 789.04, ICD10: R10.32 As above in #9 - CT ABD/PEL WO IVCON Julio Kirby MD documented in this encounter [facility] 09-23-2022 Miscellaneous Notes Last OV 08/18/2022. Soco Ambriz MA documented in this encounter [facility] 09-10-2022 History of Presen t illness Narrative TRANSITION CARE MANAGEMENT (TCM) FOLLOW-UP NOTE Provider Action/FYI Patient identified by name and date of : YES Spoke to N/A Summary: TCM follow up call to patient with no answer. Detailed message left. Patient returned call. Patient states that she is feeling much better, denies any cough or dyspnea. Reviewed with patient to call into office with any changes in symptoms or concerns. Patient verbalized understanding. Patient has labs and chest x-ray ordered and states that she plans to obtain prior to follow up appointment in October. Concerns: None Manager Fitness plan for next outreach: No further follow up needed. Signature Elvira Caballero RN September 10, 2022 documented in this encounter [facility] 08-20-2022 History of Presen t illness Narrative TRANSITION CARE MANAGEMENT (TCM) FOLLOW-UP NOTE Provider Action/FYI Patient identified by name and date of : YES Spoke to N/A Summary: TCM follow up call to patient, no answer. Detailed message left. Manager Fitness plan for next outreach: Will follow up in 2 weeks Signature Elvira Caballero RN August 20, 2022 documented in this encounter [facility] 08-18-2022 History of Presen t illness Narrative 2Transitional Care Management TCM Eligibility Documentation The following information was gathered during the initial Patient Outreach Encounter. Date of Outreach: 08/04/2022 Outreach Attempt 1: Contact Made Date of Discharge 08/03/2022 Some recent data might be hidden Summary Discharged from: [facility] Admit Date: 07/30/22 Admitted for: Pneumonia Myla Johnston MA Provider Documentation Michelle Floyd is a 82 year old female here today for a follow up to recent hospitalization. I have reviewed the patient's hospital course including diagnostic testing performed during this hospitalization, their discharge medications, and my assessment and plan with the patient and any family members present at today's visit. HPI: Patient is here today after hospital discharge. She was admitted to the hospital for 4 days from 07/30/2022 to 08/03/2022 for congestion and generalized weakness. She was taken to the hospital by family member as well as her and they were both having respiratory symptoms and both had pneumonia. The tested positive for pneumococcus and metapneumovirus. She did not test positive for COVID or pneumonia or Legionella. Viral panel was negative. That chest x-ray showed nodular infiltrate bilaterally as mentioned below. She was also diagnosed with hypokalemia and hyponatremia. Patient was treated with ceftriaxone and doxycycline while in the hospital and she continued at home with cefdinir and doxycycline. Patient finished the treatment and she did very well and did not have any sequela. She does not have any complaint today except for decreased appetite Review of Systems Constitutional: Negative for chills, fever, malaise/fatigue and weight loss. HENT: Negative for congestion, ear discharge, ear pain, sinus pain and sore throat. Eyes: Negative for blurred vision, double vision and pain. Respiratory: Negative for cough, sputum production, shortness of breath and wheezing. Cardiovascular: Negative for chest pain, palpitations, orthopnea, leg swelling and PND. Gastrointestinal: Negative for abdominal pain, blood in stool, constipation, diarrhea, heartburn, melena, nausea and vomiting. Genitourinary: Negative for dysuria, frequency, hematuria and urgency. Musculoskeletal: Negative for joint pain and myalgias. Neurological: Negative for dizziness, tingling, tremors, seizures, loss of consciousness and headaches. Psychiatric/Behavioral: Negative for depression and suicidal ideas. The patient is not nervous/anxious. Vitals There were no vitals taken for this visit. Physical Exam Constitutional: General: She is not in acute distress. Appearance: Normal appearance. She is not ill-appearing. HENT: Head: Normocephalic and atraumatic. Right Ear: Tympanic membrane, ear canal and external ear normal. Left Ear: Tympanic membrane, ear canal and external ear normal. Nose: Nose normal. Mouth/Throat: Mouth: Mucous membranes are moist. Pharynx: Oropharynx is clear. Eyes: General: Right eye: Right eye discharge: cxr. Conjunctiva/sclera: Conjunctivae normal. Pupils: Pupils are equal, round, and reactive to light. Neck: Vascular: No carotid bruit. Cardiovascular: Rate and Rhythm: Normal rate and regular rhythm. Heart sounds: Normal heart sounds. No murmur heard. Pulmonary: Effort: Pulmonary effort is normal. No respiratory distress. Breath sounds: Normal breath sounds. No stridor. No wheezing, rhonchi or rales. Abdominal: General: Bowel sounds are normal. There is no distension. Palpations: Abdomen is soft. There is no mass. Tenderness: There is no abdominal tenderness. There is no guarding or rebound. Hernia: No hernia is present. Musculoskeletal: General: No swelling or tenderness. Normal range of motion. Cervical back: Normal range of motion and neck supple. No rigidity or tenderness. Lymphadenopathy: Cervical: No cervical adenopathy. Skin: General: Skin is warm. Coloration: Skin is not jaundiced or pale. Neurological: General: No focal deficit present. Mental Status: She is alert and oriented to person, place, and time. Psychiatric: Mood and Affect: Mood and affect normal. Cognition and Memory: Memory normal. Judgment: Judgment normal. Component Latest Ref Rng & Units 07/30/2022 07/31/2022 08/02/2022 WBC 3.70 - 11.00 k/uL 4.55 RBC 3.90 - 5.20 m/uL 4.17 Hemoglobin 11.5 - 15.5 g/dL 13.4 Hematocrit 36.0 - 46.0 % 40.0 MCV 80.0 - 100.0 fL 95.9 MCH 26.0 - 34.0 pg 32.1 MCHC 30.5 - 36.0 g/dL 33.5 RDW-CV 11.5 - 15.0 % 12.2 Platelet Count 150 - 400 k/uL 188 MPV 9.0 - 12.7 fL 10.9 Neut% % 56.3 Abs Neut (ANC) 1.45 - 7.50 k/uL 2.56 Lymph% % 28.8 Abs Lymph 1.00 - 4.00 k/uL 1.31 [place]% % 14.1 Abs [place] <0.87 k/uL 0.64 Eosin% % 0.2 Abs Eosin <0.46 k/uL <0.03 Baso% % 0.2 Abs Baso <0.11 k/uL <0.03 Immature Gran % % 0.4 IMMATURE GRANS (ABS) <0.10 k/uL <0.03 NRBC /100 WBC 0.0 Absolute nRBC <0.01 k/uL <0.01 DTYPE Auto Glucose 74 - 99 mg/dL 105 (H) 93 104 (H) BUN 7 - 21 mg/dL 8 8 11 Creatinine 0.58 - 0.96 mg/dL 0.53 (L) 0.50 (L) 0.30 (L) Sodium 136 - 144 mmol/L 133 (L) 129 (L) 134 (L) Potassium 3.7 - 5.1 mmol/L 3.0 (L) 3.4 (L) Chloride 97 - 105 mmol/L 95 (L) 91 (L) 95 (L) CO2 22 - 30 mmol/L 26 27 25 Anion Gap 9 - 18 mmol/L 12 11 14 Calcium 8.5 - 10.2 mg/dL 8.7 8.5 9.4 eGFR >=60 mL/min/1.73m 92 93 105 Magnesium 1.7 - 2.3 mg/dL 1.7 CXR 07/29/2022 IMPRESSION: New right lung nodular infiltrates as described above. Clinical correlation and follow-up exams are recommended. ASSESSMENT/PLAN: 1. Pneumonia of both lungs due to infectious organism, unspecified part of lung - ICD9: 483.8, ICD10: J18.9 (primary diagnosis) As in the HPI patient needs to get a chest x-ray before her next appointment. She is asymptomatic today and her physical exam was unremarkable - XR CHEST 2V FRONTAL/LAT 2. Hyponatremia - ICD9: 276.1, ICD10: E87.1 Better control of her sodium. It was in the 129 when she was in the hospital and now on 34. - BASIC METABOLIC PNL 3. Hypokalemia - ICD9: 276.8, ICD10: E87.6 Patient to increase potassium in her diet and I gave her a few ideas. - BASIC METABOLIC PNL 4. Primary hypertension - ICD9: 401.9, ICD10: I10 - good control. Patient was told to take amlodipine twice daily but today with her blood pressure being controlled without amlodipine (she ran out) I would suggest to stay on once a daily amlodipine. - Continue current medication(s) - Encouraged dietary sodium restriction/DASH diet - Recommended regular aerobic exercise. - Recommend home blood pressure monitoring, to bring results in on next visit - Goal of BP <130/80 - CBC + DIFF - BASIC METABOLIC PNL - HEPATIC FUNCTION PNL - TSH BLD - AMLODIPINE 2.5 MG TABLET 5. Dyslipidemia - ICD9: 272.4, ICD10: E78.5 - to be determined upon return of lab results - Continue current medication. - Encouraged following a low fat, low cholesterol diet. - Discussed the benefits of regular aerobic exercise and weight loss. - LIPID PANEL BASIC 6. High blood sugar - ICD9: 790.29, ICD10: R73.9 - HGB A1C 7. Vitamin D deficiency - ICD9: 268.9, ICD10: E55.9 - VITAMIN D 25 HYDROXY Julio Kirby MD documented in this encounter [facility] 08-04-2022 History of Presen t illness Narrative TCM Home Visit Referral Source of Stratification: [facility] Admission Status: Discharged Readmission Risk Score: 16 JCARLOS Score: 5 Patient meets program referral criteria: No Patient does not qualify for High Risk TCM Home Visit program due to: Discharged home, does not meet program criteria Elvira Caballero RN August 04, 2022 4:29 PM Elvira Caballero RNARTS AND HUMANITIES COUNCIL DIRECTOR MANAGEMENT (TCM) COMMUNITY MONITORING PROGRAM - [place] Provider Action/FYI: Spoke with son, he declines scheduling appointment at this time. Patient to call in to schedule. Son questioning if patient can take mucinex to assist with congestion. Son reports that the patient is feeling better, remains congested. Patient to have follow up BMP in 1 week. Lab pended for signature. Elvira Caballero RN SUMMARY: Pt discharged from [facility] on 08/03/22. Admitted for: PNA Contact made with patient: Yes General: Spoke with son, he reports that the patient is home and feeling better. Son reports some congestion remaining and is wondering if patient can take mucinex to assist with this. Message sent to provider for clarification. Reviewed PNA zones and encouraged son to report any changes in symptoms. Medications: Reviewed with son, patient obtained antibiotics. Labs: Patient to have a follow up BMP in 1 week, lab pended for signature. Follow up appointments: Son declines to schedule. Patient to call in and schedule appointment. Hi my name is Elvira Caballero RN and I am calling from the [facility] on behalf of your PCP, Julio Kirby MD I understand you were recently in the hospital so I am calling to check in with you to ensure you are feeling well now that you re home. Do you mind if I ask you a few questions related to your hospital stay and well-being Yes Contact with patient post discharge, spoke to son. Patient identified by name and . Do you feel your health is BETTER, WORSE, or the SAME since leaving the hospital? Better ACTION TAKEN: Patient indicated symptoms are better or same, no action required. Continue outreach. MEDICATIONS: Many patients have questions or concerns about their medications once they are home. Do you have any questions about taking your medications or which medication you should be on? No Do you need any medication refills at this time, including any of the medications you might take only when needed? No ACTION TAKEN: No action required For RNs or Pharmacy completing outreach ONLY, was a medication review completed? Yes SOCIAL: We would like to make sure you have what you need so that your basics needs are met - including your personal safety, food, housing and medications. Would you like to speak with a social work sample steamer to help give you support for any of these needs? No It can be normal to feel anxious or down during a time like this. Would you like to talk to a mental health professional about how you have been feeling? No ACTION TAKEN: No action taken DISCHARGE INTRUCTIONS: Your discharge instructions / After Visit Summary (AVS) are important in guiding you through the recovery process. Do you have any questions related to your discharge instructions? No Do you have all the necessary equipment and supplies at home? Yes ACTION TAKEN: No action required Thank you for talking with me today. I would like to help you schedule a hospital follow-up virtual or telephone visit with your PCP. This is a great way for you to connect with your provider to ensure you have safely transitioned home. If you are agreeable, I will send your request to a conditioner tumbler operator who will contact and assist you with that appointment. This will give you an opportunity to ask any questions or address any concerns you may have with your PCP. Inform the patient that if they have any questions or concerns prior to that appointment, to call their PCP's office right away. ACTION TAKEN: No action required, patient declines appointment. Your doctor would like us to remind you of the recommendations regarding the coronavirus (Covid19) outbreak: Avoid public places as much as possible. Avoid close contact (within 6 feet) with others you don't live with, especially if they are sick. Stay home if you are sick. Wash your hands regularly for at least 20 seconds with soap and water. Wear a cloth mask in public places to help reduce community spread. Do not go to your Doctor's office unless instructed to do so. For any non-emergency symptoms, call your Doctor's office to get instructions on how to manage (we might recommend a telephone or virtual visit). For emergency symptoms, proceed to Emergency Department as usual but inform them of cough and fever symptoms AKIRA if present (or call on the way if possible). Elvira Caballero RN documented in this encounter [facility] 07-29-2022 History of Presen t illness Narrative Images from the original note were not included. [facility] [address] [place] [address] Date of Evaluation: 07/29/2022 Patient Name: Michelle Floyd : 1940 Chief Complaint: Patient presents with: Cough Nursing Intake: There are no exam notes on file for this visit. Subjective HPI Ms. Floyd is a 82 year old female who presents with the following complaint(s): Patient states that she has not been feeling well for the past 5 days or so. She has had some head congestion, cough and just feeling nauseated. She has not vomited. She is not eating well. She denies any chest pain or shortness of breath. No fever that she is aware of. Pulse ox at home has been in the normal range. Her daughter is concerned that she had an abnormal heart arrhythmia based on a reading that she took on her apple watch. The reading showed the patient was in bigeminy but then she checked 45 minutes later and it was normal. Patient has been taking Tylenol and Robitussin for her symptoms. Review of Systems Constitutional: Positive for activity change, appetite change and fatigue. Negative for fever. HENT: Positive for congestion. Negative for ear pain, sore throat and trouble swallowing. Eyes: Negative for visual disturbance. Respiratory: Positive for cough. Negative for shortness of breath. Cardiovascular: Negative for chest pain, palpitations and leg swelling. Gastrointestinal: Positive for nausea. Negative for abdominal pain, constipation, diarrhea and vomiting. Musculoskeletal: Negative for arthralgias, back pain, joint swelling and myalgias. Skin: Negative for rash. Neurological: Positive for weakness. Negative for dizziness, numbness and headaches. Hematological: Does not bruise/bleed easily. Psychiatric/Behavioral: Negative for confusion and sleep disturbance. The patient is not nervous/anxious. No past medical history on file. PAST SURGICAL HISTORY Procedure Laterality Date PAST SURGICAL HISTORY OF C section x 2 PAST SURGICAL HISTORY OF Bilateral Cataract, eye lid lift TONSILLECTOMY & ADENOIDECTOMY <AGE 11 FAMILY HISTORY Problem Relation Age of Onset Aneurysm Mother AAA Heart Attack Mother Alzheimer's Disease Father Rheumatologic disease Brother RA other () Granddaughter Social History Tobacco Use Smoking status: Never Smokeless tobacco: Never Vaping Use Vaping Use: Never used Substance Use Topics Alcohol use: No Drug use: No Current Outpatient Medications Medication Sig Dispense Refill nabumetone (RELAFEN) 500 mg tablet Take 500 mg by mouth twice daily. amLODIPine (NORVASC) 2.5 mg tablet Take 1 tablet by mouth once daily. 90 tablet 0 omeprazole (PRILOSEC) 40 mg capsule take 1 capsule by mouth once daily 90 capsule 0 triamterene-hydroCHLOROthiazide (DYAZIDE) 37.5-25 mg per capsule take 1 capsule by mouth once daily 90 capsule 1 Mirtazapine (REMERON) 7.5 mg tablet take 1 tablet by mouth at bedtime 90 tablet 1 mirabegron (MYRBETRIQ) 25 mg Tb24 Take 1 tablet by mouth once daily. 90 tablet 1 ramipril (ALTACE) 5 mg capsule take 1 capsule by mouth once daily 90 capsule 3 atorvastatin (LIPITOR) 20 mg tablet take 1 tablet by mouth once daily 90 tablet 3 acetaminophen (TYLENOL EXTRA STRENGTH) 500 mg tablet Take 2 tablets by mouth three times daily. 180 tablet 1 Mirtazapine (REMERON) 7.5 mg tablet Take 1 tablet by mouth daily at bedtime. 90 tablet 3 No current facility-administered medications for this visit. I have confirmed and edited as necessary the chief complaint, medications, past medical, family and social histories obtained by others. Objective BP 115/72 Pulse 102 Resp 12 Ht 5' 0 (1.52m) Wt 144 lb 3.2 oz (65.4kg) SpO2 95% BMI 28.16 kg/(m^2). Physical Exam Vitals and nursing note reviewed. Constitutional: General: She is not in acute distress. Appearance: She is well-developed. She is ill-appearing. HENT: Head: Normocephalic and atraumatic. Right Ear: Tympanic membrane and external ear normal. Left Ear: Tympanic membrane and external ear normal. Nose: Mucosal edema present. No rhinorrhea. Right Sinus: No maxillary sinus tenderness or frontal sinus tenderness. Left Sinus: No maxillary sinus tenderness or frontal sinus tenderness. Mouth/Throat: Mouth: Mucous membranes are dry. Pharynx: No oropharyngeal exudate. Eyes: Conjunctiva/sclera: Conjunctivae normal. Pupils: Pupils are equal, round, and reactive to light. Cardiovascular: Rate and Rhythm: Normal rate and regular rhythm. Heart sounds: Normal heart sounds. Pulmonary: Effort: Pulmonary effort is normal. Breath sounds: Normal breath sounds. No wheezing, rhonchi or rales. Abdominal: General: There is no distension. Palpations: Abdomen is soft. Tenderness: There is no abdominal tenderness. Musculoskeletal: Cervical back: Normal range of motion and neck supple. Lymphadenopathy: Cervical: No cervical adenopathy. Skin: General: Skin is warm and dry. Findings: No rash. Neurological: Mental Status: She is alert and oriented to person, place, and time. ASSESSMENT/PLAN: 1. Acute cough - ICD9: 786.2, ICD10: R05.1 (primary diagnosis) - CBC + DIFF - BASIC METABOLIC PNL - XR CHEST 2V FRONTAL/LAT - DOXYCYCLINE MONOHYDRATE 100 MG CAPSULE - BENZONATATE 100 MG CAPSULE 2. Fever, unspecified fever cause - ICD9: 780.60, ICD10: R50.9 - CBC + DIFF - BASIC METABOLIC PNL - XR CHEST 2V FRONTAL/LAT - DOXYCYCLINE MONOHYDRATE 100 MG CAPSULE 3. Abnormal EKG - ICD9: 794.31, ICD10: R94.31 - BASIC METABOLIC PNL - HOLTER MONITOR 48 HOUR Cecilia Conn PA-C No follow-ups on file. Discussed the above with the patient using shared decision making. The patient is in agreement with the diagnostic and treatment plans. documented in this encounter [facility] 06-12-2022 Miscellaneous Notes PATIENT NOW SEES DR. D ESOUZA documented in this encounter [facility] 06-03-2022 Instructions Julio Kirby MD - 06/03/2022 2:49 PM EST Patient to check if she takes the amlodipine or Norvasc 2.5 mg daily. If not I called in some to her pharmacy. If she finds out that she is taking the medication daily and her blood pressure still high she can double the dose to 5 mg daily or take the 2.5 mg twice daily. Patient to check blood pressure and try to write it on a piece of paper. She can check it up to 3 times a week. I will see her in the office in 3 to 4-month documented in this encounter [facility] 06-03-2022 History of Presen t illness Narrative Visit Date: June 03, 2022 Ms.Patricia Floyd Date of : 1940 MRN/E #: [id number] Chief Complaint Patient presents with: New Patient: Prev patient of Dr. Banda History of present illness Michelle Floyd is a 82 year old female. HPI Patient is here today to establish care. She used to go to Dr. Banda. Patient known to have primary hypertension on 4 medications. She states that she takes all of them. Her blood pressure in the office was high today. She has a history of dyslipidemia on statin and the last blood work was March 2022 that I reviewed with her and it showed good control of her numbers with LDL less than 100. 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 Patient is on Myrbetriq for urinary incontinence and she states this is working well for her. She had low back pain diagnosed about 4 years ago. She follows with Dr. Becker in [place] and she has shots in the back at [facility]. She is still getting mammograms. Last colonoscopy as she states was about [address] Bejarano She had a DEXA scan in 2020 that showed osteopenia. PAIN EVALUATION No data found in the last 1 encounters. ALLERGIES Allergen Reactions Morphine Hives No past medical history on file. PAST SURGICAL HISTORY Procedure Laterality Date PAST SURGICAL HISTORY OF C section x 2 PAST SURGICAL HISTORY OF Bilateral Cataract, eye lid lift TONSILLECTOMY & ADENOIDECTOMY <AGE 11 Social History Tobacco Use Smoking status: Never Smokeless tobacco: Never Vaping Use Vaping Use: Never used Substance Use Topics Alcohol use: No Drug use: No FAMILY HISTORY Problem Relation Age of Onset Aneurysm Mother AAA Heart Attack Mother Alzheimer's Disease Father Rheumatologic disease Brother RA other () Granddaughter Review of Systems Constitutional: Negative for chills, fever, malaise/fatigue and weight loss. HENT: Negative for congestion, ear discharge, ear pain, sinus pain and sore throat. Eyes: Negative for blurred vision, double vision and pain. Respiratory: Negative for cough, sputum production, shortness of breath and wheezing. Cardiovascular: Negative for chest pain, palpitations, orthopnea, claudication, leg swelling and PND. Gastrointestinal: Negative for abdominal pain, blood in stool, constipation, diarrhea, heartburn, melena, nausea and vomiting. Genitourinary: Negative for dysuria, frequency, hematuria and urgency. Musculoskeletal: Positive for back pain. Negative for myalgias. Neurological: Negative for dizziness, tingling, tremors, seizures, loss of consciousness and headaches. Psychiatric/Behavioral: Negative for depression, substance abuse and suicidal ideas. The patient has insomnia. The patient is not nervous/anxious. Physical Exam Constitutional: General: She is not in acute distress. Appearance: Normal appearance. She is not ill-appearing. HENT: Head: Normocephalic and atraumatic. Right Ear: Tympanic membrane, ear canal and external ear normal. Left Ear: Tympanic membrane, ear canal and external ear normal. Nose: Nose normal. Mouth/Throat: Mouth: Mucous membranes are moist. Pharynx: Oropharynx is clear. Eyes: Conjunctiva/sclera: Conjunctivae normal. Pupils: Pupils are equal, round, and reactive to light. Neck: Vascular: No carotid bruit. Cardiovascular: Rate and Rhythm: Normal rate and regular rhythm. Heart sounds: Normal heart sounds. No murmur heard. Pulmonary: Effort: Pulmonary effort is normal. No respiratory distress. Breath sounds: Normal breath sounds. No stridor. No wheezing, rhonchi or rales. Abdominal: General: Bowel sounds are normal. There is no distension. Palpations: Abdomen is soft. There is no mass. Tenderness: There is no abdominal tenderness. There is no guarding or rebound. Hernia: No hernia is present. Musculoskeletal: General: No swelling or tenderness. Normal range of motion. Cervical back: Normal range of motion and neck supple. No rigidity or tenderness. Lymphadenopathy: Cervical: No cervical adenopathy. Skin: General: Skin is warm. Coloration: Skin is not jaundiced or pale. Neurological: General: No focal deficit present. Mental Status: She is alert and oriented to person, place, and time. Psychiatric: Mood and Affect: Mood and affect normal. Cognition and Memory: Memory normal. Judgment: Judgment normal. BP 150/80 Pulse 83 Ht 5' 0 (1.52m) Wt 146 lb (66.2kg) SpO2 99% BMI 28.51 kg/(m^2). ASSESSMENT/PLAN: 1. Encounter to establish care - ICD9: V65.8, ICD10: Z76.89 (primary diagnosis) - DEPRESSION SCREENING/ASSESSMENT 2. Primary hypertension - ICD9: 401.9, ICD10: I10 - suboptimal control - Increase amlodipine (Norvasc), patient to take 2 tablets of Norvasc 2.5 mg daily and let us know if her blood pressure still not controlled - Encouraged dietary sodium restriction/DASH diet - Recommended regular aerobic exercise. - Recommend home blood pressure monitoring, to bring results in on next visit - Goal of BP <130/80 - AMLODIPINE 2.5 MG TABLET 3. Primary insomnia - ICD9: 307.42, ICD10: F51.01 Well-controlled with mirtazapine 4. Dyslipidemia - ICD9: 272.4, ICD10: E78.5 - good control - Continue current medication. - Encouraged following a low fat, low cholesterol diet. - Discussed the benefits of regular aerobic exercise and weight loss. 5. Urinary incontinence, unspecified type - ICD9: 788.30, ICD10: R32 6. Chronic low back pain, unspecified back pain laterality, unspecified whether sciatica present - ICD9: 724.2, 338.29, ICD10: M54.50, G89.29 She goes to [facility] for her pain management 7. Osteopenia, unspecified location - ICD9: 733.90, ICD10: M85.80 - Reviewed the need for Calcium and Vitamin D supplements and weight bearing exercise as tolerated Julio Kirby MD documented in this encounter [facility] 04-25-2022 Miscellaneous Notes Patient faxedrequesting the following refill. Requested Prescriptions Pending Prescriptions Disp Refills omeprazole (PRILOSEC) 40 mg capsule [Pharmacy Med Name: OMEPRAZOLE DR 40 MG CAPSULE] 90 capsule 0 Sig: take 1 capsule by mouth once daily Patient Phone numbers: [phone] (home) Request is for script(s) to be escript to pharmacy. Date of last office visit: 03/19/2022 Date of next Appointment: Visit date not found Pharmacy has been captured: Yes. Chente Welch documented in this encounter [facility] 03-20-2022 Miscellaneous Notes Patient faxedrequesting the following refill. Requested Prescriptions Pending Prescriptions Disp Refills amLODIPine (NORVASC) 2.5 mg tablet [Pharmacy Med Name: AMLODIPINE BESYLATE 2.5 MG TAB] 90 tablet 0 Sig: take 1 tablet by mouth once daily Patient Phone numbers: [phone] (home) Request is for script(s) to be escript to pharmacy. Date of last office visit: 02/10/2022 Date of next Appointment: Visit date not found Pharmacy has been captured: Yes. Chente Welch documented in this encounter [facility] 02-10-2022 Note HNO ID: [id number] Author: Joellen Banda MD Service: ? Author Type: Physician Type: Progress Notes Filed: 02/10/2022 11:32 AM Note Text: Subjective: Michelle Floyd is a 82 year old female who presents for follow up and labs. She is doing pretty well, no traveling coming up. History reviewed. No pertinent past medical history. PAST SURGICAL HISTORY Procedure Laterality Date - PAST SURGICAL HISTORY OF C section x 2 - PAST SURGICAL HISTORY OF Bilateral Cataract, eye lid lift - TONSILLECTOMY AND ADENOIDECTOMY Current Outpatient Medications Medication Sig Dispense Refill - triamterene-hydroCHLOROthiazide (DYAZIDE) 37.5-25 mg per capsule take 1 capsule by mouth once daily 90 capsule 1 - Mirtazapine (REMERON) 7.5 mg tablet take 1 tablet by mouth at bedtime 90 tablet 1 - mirabegron (MYRBETRIQ) 25 mg Tb24 Take 1 tablet by mouth once daily. 90 tablet 1 - ramipril (ALTACE) 5 mg capsule take 1 capsule by mouth once daily 90 capsule 3 - atorvastatin (LIPITOR) 20 mg tablet take 1 tablet by mouth once daily 90 tablet 3 - amLODIPine (NORVASC) 2.5 mg tablet take 1 tablet by mouth once daily 90 tablet 1 - omeprazole (PRILOSEC) 40 mg capsule take 1 capsule by mouth once daily 90 capsule 3 - gabapentin (NEURONTIN) 400 mg capsule Take 1 capsule by mouth three times daily for 30 days. (Patient not taking: Reported on 10/24/2021) 90 capsule 0 - acetaminophen (TYLENOL EXTRA STRENGTH) 500 mg tablet Take 2 tablets by mouth three times daily. (Patient not taking: Reported on 10/24/2021 ) 180 tablet 1 - meloxicam (MOBIC) 15 mg tablet Take 1 tablet by mouth once daily. (Patient not taking: Reported on 10/24/2021 ) 30 tablet 0 - Mirtazapine (REMERON) 7.5 mg tablet Take 1 tablet by mouth daily at bedtime. 90 tablet 3 No current facility-administered medications for this visit. ALLERGIES Allergen Reactions - Morphine Hives FAMILY HISTORY Problem Relation Age of Onset - Aneurysm Mother AAA - Heart Attack Mother - Alzheimer's Disease Father - Rheumatologic disease Brother RA - other () Granddaughter Social History Tobacco Use - Smoking status: Never Smoker - Smokeless tobacco: Never Used Vaping Use - Vaping Use: Never used Substance Use Topics - Alcohol use: No - Drug use: No Objective: BP 128/72 Temp 97.8 Ht 5' 0 (1.52m) Wt 148 lb (67.1kg) BMI 28.90 kg/(m2). No nodes/goiter Heart-reg Lungs-clear No edema. GFN=891 K=3.6 Vit D=37.4. Current Outpatient Medications Medication Sig - triamterene-hydroCHLOROthiazide (DYAZIDE) 37.5-25 mg per capsule take 1 capsule by mouth once daily - Mirtazapine (REMERON) 7.5 mg tablet take 1 tablet by mouth at bedtime - mirabegron (MYRBETRIQ) 25 mg Tb24 Take 1 tablet by mouth once daily. - ramipril (ALTACE) 5 mg capsule take 1 capsule by mouth once daily - atorvastatin (LIPITOR) 20 mg tablet take 1 tablet by mouth once daily - amLODIPine (NORVASC) 2.5 mg tablet take 1 tablet by mouth once daily - omeprazole (PRILOSEC) 40 mg capsule take 1 capsule by mouth once daily - gabapentin (NEURONTIN) 400 mg capsule Take 1 capsule by mouth three times daily for 30 days. (Patient not taking: Reported on 10/24/2021) - acetaminophen (TYLENOL EXTRA STRENGTH) 500 mg tablet Take 2 tablets by mouth three times daily. (Patient not taking: Reported on 10/24/2021 ) - meloxicam (MOBIC) 15 mg tablet Take 1 tablet by mouth once daily. (Patient not taking: Reported on 10/24/2021 ) - Mirtazapine (REMERON) 7.5 mg tablet Take 1 tablet by mouth daily at bedtime. No current facility-administered medications for this visit. Assessment: Screening breast examination (primary encounter diagnosis) Htn (hypertension), benign Hyperglycemia, unspecified Mixed hyperlipidemia Gastroesophageal reflux disease, unspecified whether esophagitis present Vitamin d deficiency Plan: Patient Instructions Mammogram order generated. labwork in the fall. Joellen Banda MD Electronically Signed 02/10/2022 11:19 AM [facility] 02-10-2022 Instructions Joellen Banda MD - 02/10/2022 11:27 AM EDT Mammogram order generated. labwork in the fall. documented in this encounter [facility] 02-10-2022 History of Presen t illness Narrative Subjective: Michelle Floyd is a 82 year old female who presents for follow up and labs. She is doing pretty well, no traveling coming up. History reviewed. No pertinent past medical history. PAST SURGICAL HISTORY Procedure Laterality Date PAST SURGICAL HISTORY OF C section x 2 PAST SURGICAL HISTORY OF Bilateral Cataract, eye lid lift TONSILLECTOMY & ADENOIDECTOMY <AGE 11 Current Outpatient Medications Medication Sig Dispense Refill triamterene-hydroCHLOROthiazide (DYAZIDE) 37.5-25 mg per capsule take 1 capsule by mouth once daily 90 capsule 1 Mirtazapine (REMERON) 7.5 mg tablet take 1 tablet by mouth at bedtime 90 tablet 1 mirabegron (MYRBETRIQ) 25 mg Tb24 Take 1 tablet by mouth once daily. 90 tablet 1 ramipril (ALTACE) 5 mg capsule take 1 capsule by mouth once daily 90 capsule 3 atorvastatin (LIPITOR) 20 mg tablet take 1 tablet by mouth once daily 90 tablet 3 amLODIPine (NORVASC) 2.5 mg tablet take 1 tablet by mouth once daily 90 tablet 1 omeprazole (PRILOSEC) 40 mg capsule take 1 capsule by mouth once daily 90 capsule 3 gabapentin (NEURONTIN) 400 mg capsule Take 1 capsule by mouth three times daily for 30 days. (Patient not taking: Reported on 10/24/2021) 90 capsule 0 acetaminophen (TYLENOL EXTRA STRENGTH) 500 mg tablet Take 2 tablets by mouth three times daily. (Patient not taking: Reported on 10/24/2021 ) 180 tablet 1 meloxicam (MOBIC) 15 mg tablet Take 1 tablet by mouth once daily. (Patient not taking: Reported on 10/24/2021 ) 30 tablet 0 Mirtazapine (REMERON) 7.5 mg tablet Take 1 tablet by mouth daily at bedtime. 90 tablet 3 No current facility-administered medications for this visit. ALLERGIES Allergen Reactions Morphine Hives FAMILY HISTORY Problem Relation Age of Onset Aneurysm Mother AAA Heart Attack Mother Alzheimer's Disease Father Rheumatologic disease Brother RA other () Granddaughter Social History Tobacco Use Smoking status: Never Smoker Smokeless tobacco: Never Used Vaping Use Vaping Use: Never used Substance Use Topics Alcohol use: No Drug use: No Objective: BP 128/72 Temp 97.8 Ht 5' 0 (1.52m) Wt 148 lb (67.1kg) BMI 28.90 kg/(m^2). No nodes/goiter Heart-reg Lungs-clear No edema. NTB=410 K=3.6 Vit D=37.4. Current Outpatient Medications Medication Sig triamterene-hydroCHLOROthiazide (DYAZIDE) 37.5-25 mg per capsule take 1 capsule by mouth once daily Mirtazapine (REMERON) 7.5 mg tablet take 1 tablet by mouth at bedtime mirabegron (MYRBETRIQ) 25 mg Tb24 Take 1 tablet by mouth once daily. ramipril (ALTACE) 5 mg capsule take 1 capsule by mouth once daily atorvastatin (LIPITOR) 20 mg tablet take 1 tablet by mouth once daily amLODIPine (NORVASC) 2.5 mg tablet take 1 tablet by mouth once daily omeprazole (PRILOSEC) 40 mg capsule take 1 capsule by mouth once daily gabapentin (NEURONTIN) 400 mg capsule Take 1 capsule by mouth three times daily for 30 days. (Patient not taking: Reported on 10/24/2021) acetaminophen (TYLENOL EXTRA STRENGTH) 500 mg tablet Take 2 tablets by mouth three times daily. (Patient not taking: Reported on 10/24/2021 ) meloxicam (MOBIC) 15 mg tablet Take 1 tablet by mouth once daily. (Patient not taking: Reported on 10/24/2021 ) Mirtazapine (REMERON) 7.5 mg tablet Take 1 tablet by mouth daily at bedtime. No current facility-administered medications for this visit. Assessment: Screening breast examination (primary encounter diagnosis) Htn (hypertension), benign Hyperglycemia, unspecified Mixed hyperlipidemia Gastroesophageal reflux disease, unspecified whether esophagitis present Vitamin d deficiency Plan: Patient Instructions Mammogram order generated. labwork in the fall. Joellen Banda MD Electronically Signed 02/10/2022 11:19 AM documented in this encounter [facility] 01-06-2022 Hospital Discharg e Jarvis Augustin MD - 01/06/2022 Where wrist splint for comfort ice to lip and wrist 20 minutes every hour tonight. The following attachments cannot be sent through Care Everywhere.Contusion: Facial (Sammarinese)Wrist Sprain (Sammarinese)documented in this encounter ABHINAV Kinney Phone: 01-06-2022 Miscellaneous Notes Pharmacy faxedrequesting the following refill. Pending Prescriptions Disp Refills TRIAMTERENE 37.5 MG-HYDROCHLOROTHIAZIDE 25 MG CAPSULE 90 capsule 1 Sig: take 1 capsule by mouth once daily GLYNN: Yes Patient Phone numbers: [phone] (home) Request is for script(s) to be escript to pharmacy. Date of last office visit: 12/13/2021 Date of next Appointment: Visit date not found Pharmacy has been captured: Yes. Olga Eaton Ma' documented in this encounter [facility] 12-13-2021 Miscellaneous Notes Pharmacy faxedrequesting the following refill. Pending Prescriptions Disp Refills MIRTAZAPINE 7.5 MG TABLET 90 tablet 1 Sig: take 1 tablet by mouth at bedtime GLYNN: Yes Patient Phone numbers: [phone] (home) Request is for script(s) to be escript to pharmacy. Date of last office visit: 11/07/2021 Date of next Appointment: Visit date not found Pharmacy has been captured: Yes. Chente Welch documented in this encounter [facility] 11-30-2021 History of Presen t illness Narrative AMBULATORY TELEPHONE VISIT Michelle Floyd has consented to this telephone encounter. Persons Present: patient Chief Complaint/Reason: joint pain HPI: she is here to discuss results. She made apt with pain management. She was following with Dr. Becker in [place] in pain clinic. Chronic low back pain,hip pain. No response to RFA, epidurals. Pain is across the back, radiates down to the his, burning in legs. Sometimes bends over in the shopping cart. Uses heat, tylenol. She has tried gabapentin in the past. Unable to do ADLs. AM stiffness lasting for 15-20 min. She has swelling in hands in the mornings. Swelling in feet as the day goes. Tried to walk every morning. She used to do high impact aerobics for 30 years. Family history of autoimmune disease: grand daughter with Smoking status: Tobacco Use: Never Data Reviewed: Most recent labs and imaging results. 2020 DEXA IMPRESSION: Osteopenia by WHO criteria. No statistically significant interval change in bone mineral density of the bilateral hips. FINDINGS: 1. Lumbar spine calculations are artificially elevated due to degenerative sclerosis. 2. Left hip BMD is 0.870 g/cm2 which is 86% of peak bone mass compared to young normals which is -1.1 standard deviations relative to the mean of young normals (T-score). According to the World Health Organization criteria, this would be classified as osteopenia. No statistically significant interval change since previous examination. 3. Left femoral neck BMD is 0.779 g/cm2 which is 75% of peak bone mass compared to young normals which is -1.9 standard deviations relative to the mean of young normals (T-score). According to the World Health Organization criteria, this would be classified as osteopenia. 4. Right hip BMD is 0.847 g/cm2 which is 84% of peak bone mass compared to young normals which is -1.3 standard deviations relative to the mean of young normals (T-score). According to the World Health Organization criteria, this would be classified as osteopenia. No statistically significant interval change since previous examination. 5. Right femoral neck BMD is 0.827 g/cm2 which is 80% of peak bone mass compared to young normals which is -1.5 standard deviations relative to the mean of young normals (T-score). According to the World Health Organization criteria, this would be classified as osteopenia. IMPRESSION: Scoliosis of lumbar spine, convex to the left. Multilevel degenerative change, most severe in the lower cervical spine. No acute findings. Minimal retrolisthesis C2 on C3 and minimal anterolisthesis of C5 on C6. MRI L spine 2019 - IMPRESSION: Low-lying cord extends at least to the S2 level and bony dysraphism in the sacrum as outlined above. Eccentric disc extrusion at L1-2 with moderate eccentric canal stenosis. Moderate canal stenosis at L3-4 and L4-5. Multilevel bony foraminal narrowing as detailed above. Anatomic Thoracic/Lumbar Variant: None. L4-5 is considered the level of the iliac crest and assume there are 5 lumbar-type vertebrae. IMPRESSION: ADVANCED DEGENERATIVE DISC DISEASE IN THE LUMBAR SPINE UNCHANGED COMPARED TO PREVIOUS EXAM. GRADE 1 ANTEROLISTHESIS OF L4 IN RELATION TO L5 WHICH IS INCREASED SINCE THE PREVIOUS EXAMINATION. THERE IS AN INCREASE IN RETROLISTHESIS OF L5 RELATION S1 SINCE THE PREVIOUS EXAM. MINIMAL ANTEROLISTHESIS OF L3 IN RELATION L4 UNCHANGED. FACET DEGENERATIVE CHANGES WITH HYPERTROPHIC CHANGES AT L5/S1 IS INCREASED MILD DEGENERATIVE CHANGES OF THE RIGHT SACROILIAC JOINT. LEFT SACROILIAC JOINT IS NORMAL.. 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 Patient has chronic low back pain and has family history of ankylosing spondylitis. Her symptoms are concerning from osteoarthritis. She lacks symptoms of inflammatory back pain however we will evaluate with below labs and x-rays. She is currently not taking any medications for pain. Medications like Cymbalta, considered. She has not seen pain management for a while. Advised to take Ca- vit for osteopenia. May need PT to improve balance. Total Time Spent: 20 minutes Mariah White MD documented in this encounter [facility] 11-20-2021 Miscellaneous Notes No Show Documentation Michelle Floyd no showed for an appointment on 11.20.21 with Mariah White MD at [facility]. She was scheduled for 10:40a. I called and spoke with the patient regarding her missed appointment. Michelle stated the reason that she missed her appointment was because Spam nikko turned on. Resources discussed/offered to patient: LM No show determined to be fault of patient: Yes This is the patients first no show in the last 12 months. Patient was rescheduled for 11/30/21. Letter mailed : Yes Is this the Third or Fourth No Show ? No Radha Beckford November 20, 2021 11:55 AM documented in this encounter [facility] 11-07-2021 Miscellaneous Notes Myrbetriq working well. Would like rx for it. Ok per ARW. THIS MESSAGE IS COMPLETE. Phoenix Keller Patient calledrequesting the following refill. Signed Prescriptions Disp Refills mirabegron (MYRBETRIQ) 25 mg Tb24 90 tablet 1 Sig: Take 1 tablet by mouth once daily. GLYNN: No Authorizing Provider: JOELLEN BANDA Ordering User: PHOENIX KELLER Patient Phone numbers: [phone] (home) Request is for script(s) to be escript to pharmacy. Date of last office visit: 10/12/2021 Date of next Appointment: Visit date not found Pharmacy has been captured: Yes. Phoenix Keller documented in this encounter [facility] 10-24-2021 Instructions Mariah White MD - 10/24/2021 10:53 AM EDT GENERAL RECOMMENDATIONS FOR PREVENTION OF BONE LOSS: 1. 1200 mg - 1500 mg calcium per day if no history of renal calculi for adults 50 years and over. 2. 800 - 1000 International Units of vitamin D3 per day if no history of renal calculi for adults 50 years and over. 3. Weight bearing exercise 4. Advise again smoking. If currently smoking, recommend cessation. 5. Avoid excessive use of caffeine, soft drinks, and alcoholic beverages. The National Osteoporosis Foundation recommends that treatment be considered for patients with T-scores of -2.5 or lower (-1 or lower if patient at high risk for accelerated bone loss). documented in this encounter [facility] 10-24-2021 History of Presen t illness Narrative RHEUMATOLOGY NEW PATIENT NOTE REFERRING PHYSICIAN: Self CHIEF COMPLAINT: Patient presents with: Joint Pain New Patient HPI: Michelle Floyd is a 81 year old female who presents with joint pain. She was following with Dr. Becker in [place] in pain clinic. Chronic low back pain,hip pain. No response to RFA, epidurals. Pain is across the back, radiates down to the his, burning in legs. Sometimes bends over in the shopping cart. Uses heat, tylenol. She has tried gabapentin in the past. Unable to do ADLs. AM stiffness lasting for 15-20 min. She has swelling in hands in the mornings. Swelling in feet as the day goes. Tried to walk every morning. She used to do high impact aerobics for 30 years. Family history of autoimmune disease: grand daughter with Smoking status: Tobacco Use: Never Rheumatology REVIEW OF SYSTEMS: Constitutional: Recent Weight Change: YES gained some Fatigue: No Fever: No Night sweats: No Heent: Alopecia: No H/o Inflammatory eye disease (iritis/scleritis): No Hearing loss: No Frequent sinusitis: No Oral ulcers: No Sicca: YES dry eyes Parotid swelling: No Hoarseness: No Dysphagia: No Heme/lymph: Lymphadenopathy: No Hematological abnormalities (anemia, thrombocytopenia, leukopenia): No Abnormal bleeding: No Skin: Malar or discoid lesions: No Photosensitivity: No Other rashes: No Raynaud's phenomenon: No Hives: No Tightness: No Nodules/bumps: No Easy Bruising: No Nail changes: No H/o psoriasis: No Gastroenterology: Nausea: {No Vomiting: No Change in bowel movements: No Heartburn: No Respiratory: Dry cough/SOB: No Cardiovascular: Pain in chest: No Musculoskeletal: Per HPI Joint pain or swelling: No Prolonged morning stiffness: No Back pain or neck pain: No Muscle weakness: No Genitourinary: Vaginal dryness: No Rash/ulcers: No Neurological: Headaches: No Sensitivity or pain of hands and/or feet: No Psychiatry: Anxiety: No Depression: No Poor sleep: No H/o loss: No H/o thrombosis: No Increased susceptibility to infection: No History reviewed. No pertinent past medical history. PAST SURGICAL HISTORY Procedure Laterality Date PAST SURGICAL HISTORY OF C section x 2 PAST SURGICAL HISTORY OF Bilateral Cataract, eye lid lift TONSILLECTOMY & ADENOIDECTOMY <AGE 11 Current Outpatient Medications Medication Sig ramipril (ALTACE) 5 mg capsule take 1 capsule by mouth once daily atorvastatin (LIPITOR) 20 mg tablet take 1 tablet by mouth once daily amLODIPine (NORVASC) 2.5 mg tablet take 1 tablet by mouth once daily triamterene-hydroCHLOROthiazide 37.5-25 mg per capsule take 1 capsule by mouth once daily Mirtazapine (REMERON) 7.5 mg tablet take 1 tablet by mouth at bedtime omeprazole (PRILOSEC) 40 mg capsule take 1 capsule by mouth once daily MYRBETRIQ 25 mg Tb24 take 1 tablet by mouth once daily Mirtazapine (REMERON) 7.5 mg tablet Take 1 tablet by mouth daily at bedtime. gabapentin (NEURONTIN) 400 mg capsule Take 1 capsule by mouth three times daily for 30 days. (Patient not taking: Reported on 10/24/2021) acetaminophen (TYLENOL EXTRA STRENGTH) 500 mg tablet Take 2 tablets by mouth three times daily. (Patient not taking: Reported on 10/24/2021 ) meloxicam (MOBIC) 15 mg tablet Take 1 tablet by mouth once daily. (Patient not taking: Reported on 10/24/2021 ) No current facility-administered medications for this visit. ALLERGIES Allergen Reactions Morphine Hives FAMILY HISTORY Problem Relation Age of Onset Aneurysm Mother AAA Heart Attack Mother Alzheimer's Disease Father Rheumatologic disease Brother RA other () Granddaughter Social History Tobacco Use Smoking status: Never Smoker Smokeless tobacco: Never Used Vaping Use Vaping Use: Never used Substance Use Topics Alcohol use: No Drug use: No Occupation: Employer And Job Title: None on file Years Of Education Completed: Not specified Marital Status: History Review: I have reviewed and modified as needed, the following during this visit: Allergies, Past Medical History, Past Surgical History, Past Family History, Past Social History. BP 160/88 Pulse 88 Temp (!) 35.7 C (96.2 F) (Temporal) Resp 12 Ht 152.4 cm (5') Wt 66.6 kg (146 lb 14.4 oz) LMP (LMP Unknown) BMI 28.69 kg/m Physical Exam GENERAL: Well appearing, alert, comfortable, in no acute distress, well-hydrated, well nourished. HEENT: Negative for external ears normal. Canals are clear. Both TMs visualized and are normal. Eye Exam normal. External nose normal, no nasal ulcer or throat ulcer. NECK: NECK Supple, no adenopathy; thyroid symmetric, normal size, no bruits CARDIAC: regular rate and rhythm, No murmur asculated. and Equal peripheral pulses RESPIRATORY: Lungs clear to auscultation. No wheezing, rhonchi, rales VASCULAR: RRR without murmur, gallop, or rubs. No ectopy. ABDOMEN: Soft, non tender. BS active. No masses or organomegaly. LYMPHATIC: Negative for adenopathy in the neck, axillae, groin, supraclavicular and auricular. NEURO: Motor and sensory exam normal MOTOR: Normal; including tone, gait, stressed gait, power and coordination. SKIN: Negative for alopecia, skin rash, malar rash, skin lesion, skin ulcer, pits, thickening, color changes, telangiectasias, nail changes, nail ridging, nail pitting, onycholysis MUSCULOSKELETAL: DIPS: Normal PIPS: Normal MCPs: Normal Wrists: Normal Elbows: Normal Shoulders: Normal C-Spine: Normal Hips: Normal Knees: Normal Ankles: Normal MTPs / Toes: Normal Arches: Normal Summary of old labs/radiology: Review/request of outside labs and imaging: Pertinent labs: No results found for this basename: gluc, K, NA, CHLOR, CO2, CREAT, BUN, ANION, CA, TPROT, ALB, TBILI, ALKPHOS, AST,ALT,WBC,HB,PLT,wsr,crp Serology: Pertinent imagin DEXA IMPRESSION: Osteopenia by WHO criteria. No statistically significant interval change in bone mineral density of the bilateral hips. FINDINGS: 1. Lumbar spine calculations are artificially elevated due to degenerative sclerosis. 2. Left hip BMD is 0.870 g/cm2 which is 86% of peak bone mass compared to young normals which is -1.1 standard deviations relative to the mean of young normals (T-score). According to the World Health Organization criteria, this would be classified as osteopenia. No statistically significant interval change since previous examination. 3. Left femoral neck BMD is 0.779 g/cm2 which is 75% of peak bone mass compared to young normals which is -1.9 standard deviations relative to the mean of young normals (T-score). According to the World Health Organization criteria, this would be classified as osteopenia. 4. Right hip BMD is 0.847 g/cm2 which is 84% of peak bone mass compared to young normals which is -1.3 standard deviations relative to the mean of young normals (T-score). According to the World Health Organization criteria, this would be classified as osteopenia. No statistically significant interval change since previous examination. 5. Right femoral neck BMD is 0.827 g/cm2 which is 80% of peak bone mass compared to young normals which is -1.5 standard deviations relative to the mean of young normals (T-score). According to the World Health Organization criteria, this would be classified as osteopenia. IMPRESSION: Scoliosis of lumbar spine, convex to the left. Multilevel degenerative change, most severe in the lower cervical spine. No acute findings. Minimal retrolisthesis C2 on C3 and minimal anterolisthesis of C5 on C6. MRI L spine 2019 - IMPRESSION: Low-lying cord extends at least to the S2 level and bony dysraphism in the sacrum as outlined above. Eccentric disc extrusion at L1-2 with moderate eccentric canal stenosis. Moderate canal stenosis at L3-4 and L4-5. Multilevel bony foraminal narrowing as detailed above. Anatomic Thoracic/Lumbar Variant: None. L4-5 is considered the level of the iliac crest and assume there are 5 lumbar-type vertebrae. Assessment and Plan (M25.50) Pain in joint, multiple sites (primary encounter diagnosis) 81-year-old female is here for evaluation management recommendation joint pain. Patient has chronic low back pain and has family history of ankylosing spondylitis. Her symptoms are concerning from osteoarthritis. She lacks symptoms of inflammatory back pain however we will evaluate with below labs and x-rays. She is currently not taking any medications for pain. Medications like Cymbalta, considered. She has not seen pain management for a while. Close follow up to discuss results. Advised to take Ca- vit for osteopenia. May need PT to improve balance. Office Visit on 10/24/21 XR LUMBAR LIMITED 2V AP/LAT XR SACROILIAC JOINTS 2V AP PELVIS/FERGUESON CBC + DIFF COMP METABOLIC PANEL VITAMIN D 25 HYDROXY No orders of the defined types were placed in this encounter. No follow-ups on file. Mariah White MD documented in this encounter [facility] 10-08-2021 Note HNO ID: [id number] Author: Joellen Banda MD Service: ? Author Type: Physician Type: Progress Notes Filed: 10/08/2021 5:12 PM Note Text: Subjective: Michelle Floyd is a 81 year old female who presents for regular follow up. She's got chronic back and hip pain. She's had nerve root ablation, didn't help the pain, epidurals before that. She has seen a chiropractor. She's seeing a nursing unit clerk upcoming. She has some constipation, wonders about Linzess. History reviewed. No pertinent past medical history. History reviewed. No pertinent surgical history. Current Outpatient Medications Medication Sig Dispense Refill - amLODIPine (NORVASC) 2.5 mg tablet take 1 tablet by mouth once daily 90 tablet 1 - triamterene-hydroCHLOROthiazide 37.5-25 mg per capsule take 1 capsule by mouth once daily 90 capsule 1 - Mirtazapine (REMERON) 7.5 mg tablet take 1 tablet by mouth at bedtime 90 tablet 1 - omeprazole (PRILOSEC) 40 mg capsule take 1 capsule by mouth once daily 90 capsule 3 - ramipril (ALTACE) 5 mg capsule take 1 capsule by mouth once daily 90 capsule 1 - atorvastatin (LIPITOR) 20 mg tablet take 1 tablet by mouth once daily 90 tablet 1 - gabapentin (NEURONTIN) 400 mg capsule Take 1 capsule by mouth three times daily for 30 days. 90 capsule 0 - acetaminophen (TYLENOL EXTRA STRENGTH) 500 mg tablet Take 2 tablets by mouth three times daily. 180 tablet 1 - meloxicam (MOBIC) 15 mg tablet Take 1 tablet by mouth once daily. 30 tablet 0 - MYRBETRIQ 25 mg Tb24 take 1 tablet by mouth once daily 90 tablet 1 - Mirtazapine (REMERON) 7.5 mg tablet Take 1 tablet by mouth daily at bedtime. 90 tablet 3 No current facility-administered medications for this visit. ALLERGIES Allergen Reactions - Morphine Hives History reviewed. No pertinent family history. Social History Tobacco Use - Smoking status: Never Smoker - Smokeless tobacco: Never Used Substance Use Topics - Alcohol use: No - Drug use: No Objective: BP 120/68 Temp 97.6 Ht 5' 2 (1.58m) Wt 147 lb (66.7kg) BMI 26.88 kg/(m2). No goiter/bruit/node Heart-reg Lungs-clear She has good hip ROM. She has no SLR pain. Current Outpatient Medications Medication Sig - amLODIPine (NORVASC) 2.5 mg tablet take 1 tablet by mouth once daily - triamterene-hydroCHLOROthiazide 37.5-25 mg per capsule take 1 capsule by mouth once daily - Mirtazapine (REMERON) 7.5 mg tablet take 1 tablet by mouth at bedtime - omeprazole (PRILOSEC) 40 mg capsule take 1 capsule by mouth once daily - ramipril (ALTACE) 5 mg capsule take 1 capsule by mouth once daily - atorvastatin (LIPITOR) 20 mg tablet take 1 tablet by mouth once daily - gabapentin (NEURONTIN) 400 mg capsule Take 1 capsule by mouth three times daily for 30 days. - acetaminophen (TYLENOL EXTRA STRENGTH) 500 mg tablet Take 2 tablets by mouth three times daily. - meloxicam (MOBIC) 15 mg tablet Take 1 tablet by mouth once daily. - MYRBETRIQ 25 mg Tb24 take 1 tablet by mouth once daily - Mirtazapine (REMERON) 7.5 mg tablet Take 1 tablet by mouth daily at bedtime. No current facility-administered medications for this visit. Assessment: Ddd (degenerative disc disease), lumbosacral (primary encounter diagnosis) Htn (hypertension), benign Mixed hyperlipidemia Oab (overactive bladder) Chronic idiopathic constipation Plan: Patient Instructions Re-try Myrbetriq 25 mg daily for overactive bladder. Try Linzess 145 mcg daily on an empty stomach 30 minutes before food. Get labwork in January, these are usual once a year lab testing. Joellen Banda MD Electronically Signed 10/08/2021 4:50 PM [facility] 04-08-2021 Note HNO ID: [id number] Author: Joellen Banda MD Service: ? Author Type: Physician Type: Progress Notes Filed: 04/08/2021 3:39 PM Note Text: Subjective: Michelle Floyd is a 81 year old female who presents for follow up. She has BM every couple days without straining but has some leakage afterward for a couple hrs. Main issue is urinary frequency and urgency. No burning. She does like the Myrbetriq with the samples. History reviewed. No pertinent past medical history. History reviewed. No pertinent surgical history. Current Outpatient Medications Medication Sig Dispense Refill - amLODIPine (NORVASC) 2.5 mg tablet take 1 tablet by mouth once daily 90 tablet 1 - triamterene-hydroCHLOROthiazide 37.5-25 mg per capsule take 1 capsule by mouth once daily 90 capsule 1 - Mirtazapine (REMERON) 7.5 mg tablet take 1 tablet by mouth at bedtime 90 tablet 1 - atorvastatin (LIPITOR) 20 mg tablet take 1 tablet by mouth once daily 90 tablet 1 - ramipril (ALTACE) 5 mg capsule take 1 capsule by mouth once daily 90 capsule 1 - omeprazole (PRILOSEC) 40 mg capsule Take 1 capsule by mouth once daily. 90 capsule 3 - gabapentin (NEURONTIN) 400 mg capsule Take 1 capsule by mouth three times daily for 30 days. 90 capsule 0 - acetaminophen (TYLENOL EXTRA STRENGTH) 500 mg tablet Take 2 tablets by mouth three times daily. 180 tablet 1 - meloxicam (MOBIC) 15 mg tablet Take 1 tablet by mouth once daily. 30 tablet 0 - MYRBETRIQ 25 mg Tb24 take 1 tablet by mouth once daily 90 tablet 1 - Mirtazapine (REMERON) 7.5 mg tablet Take 1 tablet by mouth daily at bedtime. 90 tablet 3 - omeprazole (PRILOSEC) 20 mg capsule Take 2 capsules by mouth once daily. 90 capsule 0 No current facility-administered medications for this visit. ALLERGIES Allergen Reactions - Morphine Hives History reviewed. No pertinent family history. Social History Tobacco Use - Smoking status: Never Smoker - Smokeless tobacco: Never Used Substance Use Topics - Alcohol use: No - Drug use: No Objective: BP 120/70 Pulse 81 Temp 97.8 Ht 5' 2 (1.58m) Wt 145 lb (65.8kg) SpO2 95% BMI 26.51 kg/(m2). no goiter/node Heart-Reg Lungs-clear Labs reviewed from January. UA was essentially clear. Current Outpatient Medications Medication Sig - amLODIPine (NORVASC) 2.5 mg tablet take 1 tablet by mouth once daily - triamterene-hydroCHLOROthiazide 37.5-25 mg per capsule take 1 capsule by mouth once daily - Mirtazapine (REMERON) 7.5 mg tablet take 1 tablet by mouth at bedtime - atorvastatin (LIPITOR) 20 mg tablet take 1 tablet by mouth once daily - ramipril (ALTACE) 5 mg capsule take 1 capsule by mouth once daily - omeprazole (PRILOSEC) 40 mg capsule Take 1 capsule by mouth once daily. - gabapentin (NEURONTIN) 400 mg capsule Take 1 capsule by mouth three times daily for 30 days. - acetaminophen (TYLENOL EXTRA STRENGTH) 500 mg tablet Take 2 tablets by mouth three times daily. - meloxicam (MOBIC) 15 mg tablet Take 1 tablet by mouth once daily. - MYRBETRIQ 25 mg Tb24 take 1 tablet by mouth once daily - Mirtazapine (REMERON) 7.5 mg tablet Take 1 tablet by mouth daily at bedtime. - omeprazole (PRILOSEC) 20 mg capsule Take 2 capsules by mouth once daily. No current facility-administered medications for this visit. Assessment: Oab (overactive bladder) (primary encounter diagnosis) Plan: Patient Instructions Try Myrbetriq 25 mg daily again and if you are pleased with the results call for a prescription before you run out. Joellen Banda MD Electronically Signed 04/08/2021 3:25 PM [facility] Diagnosis Pain in joint, multiple sites- Primary documented in this encounter [facility] note* Diagnosis Primary osteoarthritis involving multiple joints- Primary Pain in joint, multiple sites documented in this encounter [facility] note* Diagnosis Contusion of right wrist, initial encounter- Primary Contusion of lip, initial encounter documented in this encounter [facility] [employer] Work Phone: Evaluation note* Diagnosis Screening breast examination- Primary Breast screening, unspecified HTN (hypertension), benign Essential hypertension, benign Hyperglycemia, unspecified Mixed hyperlipidemia Gastroesophageal reflux disease, unspecified whether esophagitis present Vitamin D deficiency Unspecified vitamin D deficiency documented in this encounter [facility] note* Diagnosis Encounter to establish care- Primary Other reasons for seeking consultation Primary hypertension Unspecified essential hypertension Primary insomnia Persistent disorder of initiating or maintaining sleep Dyslipidemia Other and unspecified hyperlipidemia Urinary incontinence, unspecified type Chronic low back pain, unspecified back pain laterality, unspecified whether sciatica present Osteopenia, unspecified location documented in this encounter [facility] note* Diagnosis Multifocal pneumonia- Primary documented in this encounter [facility] note* Diagnosis Acute cough- Primary Fever, unspecified fever cause Abnormal EKG Nonspecific abnormal electrocardiogram (ECG) (EKG) documented in this encounter [facility] note* Diagnosis Pneumonia of both lungs due to infectious organism, unspecified part of lung- Primary Hyponatremia Hyposmolality and/or hyponatremia Hypokalemia Hypopotassemia Primary hypertension Unspecified essential hypertension Dyslipidemia Other and unspecified hyperlipidemia High blood sugar Other abnormal glucose Vitamin D deficiency Unspecified vitamin D deficiency [facility]* Diagnosis Primary hypertension- Primary Unspecified essential hypertension Primary insomnia Persistent disorder of initiating or maintaining sleep Urinary incontinence, unspecified type Dyslipidemia Other and unspecified hyperlipidemia Chronic midline low back pain without sciatica High blood sugar Other abnormal glucose Vitamin D deficiency Unspecified vitamin D deficiency Vitamin B12 deficiency Other B-complex deficiencies Intra-abdominal and pelvic swelling, mass and lump, unspecified site Left lower quadrant abdominal pain Need for vaccination Need for prophylactic vaccination and inoculation against unspecified single disease [facility] Diagnosis Primary hypertension Unspecified essential hypertension [facility] Diagnosis Primary hypertension- Primary Unspecified essential hypertension [facility]* Diagnosis Intra-abdominal and pelvic swelling, mass and lump, unspecified site Left lower quadrant abdominal pain [facility]* Diagnosis Primary hypertension- Primary Unspecified essential hypertension Dyslipidemia Other and unspecified hyperlipidemia [facility]* Diagnosis Chronic cough- Primary Cough [facility] Diagnosis Chronic cough Cough [facility] Diagnosis Dry cough- Primary Cough Environmental allergies Other allergy, other than to medicinal agents [facility] Diagnosis Encounter for Medicare annual wellness exam- Primary Routine general medical examination at a health care facility Chronic cough Cough Dysphagia, unspecified type Gastroesophageal reflux disease without esophagitis Esophageal reflux Primary hypertension Unspecified essential hypertension Dyslipidemia Other and unspecified hyperlipidemia Sensorineural hearing loss (SNHL) of both ears Prediabetes Other abnormal glucose Chronic midline low back pain without 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 Vitamin D deficiency Unspecified vitamin D deficiency [facility] Diagnosis Primary hypertension Unspecified essential hypertension [facility] Diagnosis Acute cough- Primary [facility] Diagnosis Acute bronchitis, unspecified organism- Primary Mild dementia without behavioral disturbance, psychotic disturbance, mood disturbance, or anxiety, unspecified dementia type (HCC) documented [facility]* Diagnosis Acute cough documented in this encounter [facility] note* Diagnosis Gastroesophageal reflux disease without esophagitis- Primary Esophageal reflux documented in this encounter [facility] note* Diagnosis Zenker's diverticulum- Primary Diverticulum of esophagus, acquired documented in this encounter [facility] for referral (narrative)* Diagnostic Procedure Only (Routine) - Closed Specialty Diagnoses / Procedures Referred By Contac t Referred To Contact XR IMAGING Diagnoses Pain in joint, multiple sites Procedures XR SACROILIAC JOINTS 2V AP PELVIS/FERGUESON RADIOLOGIC EXAMINATION SACROILIAC JNTS <3 VIEWS Mariah White MD [address] [facility] [address] [place] [address] Xr Imaging Referral ID Status Reason Start Date Expiration Date V isits Requested Visits Authorized [id number] Closed Auto-Generate d Referral 10/24/2021 11/23/2022 1 1 * Diagnostic Procedure Only (Routine) - Closed Specialty Diagnoses / Procedures Referred By Contac t Referred To Contact XR IMAGING Diagnoses Pain in joint, multiple sites Procedures XR LUMBAR LIMITED 2V AP/LAT RADEX SPINE LUMBOSACRAL 2/3 VIEWS Mariah White MD [address] [facility] [address] [place] [address] Xr Imaging Referral ID Status Reason Start Date Expiration Date V isits Requested Visits Authorized [id number] Closed Auto-Generate d Referral 10/24/2021 11/23/2022 [address] [facility] for referral (narrative)* Diagnostic Procedure Only (Routine) - Pending Review Specialty Diagnoses / Procedures Referred By Contac t Referred To Contact BR IMAGING Diagnoses Screening breast examination Procedures JACY SCREENING SCREENING MAMMOGRAPHY BI 2-VIEW BREAST INC Joellen Zavala MD [address] [facility] [address] [place] [address] Br Imaging [address] [place] [address] Referral ID Status Reason Start Date Expiration Date Visits Requested Visits Authorized [id number] Pending Review Auto-Generat ed Referral 02/10/2022 03/12/2023 1 1 [facility] Summary Purpose Family History No Family History Records FoundNo Family History Records FoundNo Family History Records FoundNo Family History Records FoundNo Family History Records FoundNo Family History Records Found Advance Directives No Advanced Directives Records FoundDocuments on File Type Date 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 ACP-Advance Directive ACP-Power of Supervisor Lending Activities Chief Complaint Yearly hearing test and 6 month hearing aid check6 month hearing aid check Reason for Referral Specialty Diagnoses / Procedures Referred By Jaylene cohen Referred To Contact CT IMAGING Diagnoses Intra-abdominal and pelvic swelling, mass and lump, unspecified site Left lower quadrant abdominal pain Procedures CT ABD/PEL WO IVCON CT ABD & PELVIS W/O CONTRAST Julio Garcia MD [address] [address] [address] Imaging Referral ID Status Reason Start Date Expiration Date Visits Requested Visits Authorized [id number] Pending Review Auto-Generat ed Referral 11/06/2022 12/06/2023 1 1 Referral ID Status Reason Start Date Expiration Date V isits Requested Visits Authorized [id number] Closed Auto-Generate d Referral 11/11/2022 02/09/2023 1 1 Specialty Diagnoses / Procedures Referred By Jaylene cohen Referred To Contact Gastroenterology Diagnoses Dysphagia, unspecified type Gastroesophageal reflux disease without esophagitis Procedures CONSULT TO GASTROENTEROLOGY OFFICE/OUTPATIENT [facility] 60-74 MINUTES Julio Garcia MD [address] [facility] [address] [place] [address] Referral ID Status Reason Start Date Expiration Date Visits Requested Visits Authorized [id number] Authorized PCP Requested Referral 3 08/13/2023 1 1 Specialty Diagnoses / Procedures Referred By Jaylene cohen Referred To Contact Gerontology Diagnoses Mild dementia without behavioral disturbance, psychotic disturbance, mood disturbance, or anxiety, unspecified dementia type (HCC) Procedures CONSULT TO GERIATRICS OFFICE/OUTPATIENT [facility] HIGH MDM 60-74 MINUTES Julio Garcia MD [address] [facility] [address] [place] [address] Referral ID Status Reason Start Date Expiration Date Visits Requested Visits Authorized [id number] Authorized PCP Requested Referral 3 06/14/2024 1 1 Additional Source Comments INFORMATION SOURCE (unrecogn ized section and content) DATE CREATED AUTHOR AUTHOR'S ORGANIZ ATION 01/14/2022 [facility] DATE CREATED AUTHOR AUTHOR'S ORGANIZ ATION 02/14/2022 [facility] DATE CREATED AUTHOR AUTHOR'S ORGANIZ ATION 07/16/2022 [facility] DATE CREATED AUTHOR AUTHOR'S ORGANIZ ATION 07/16/2022 [employer] DATE CREATED AUTHOR AUTHOR'S ORGANIZ ATION 09/25/2023 [facility] Source Comments (unrecognize d section and content) In the event this informatio n is protected by the Federal Confidentiality of Alcohol and Drug Abuse Patient Records regulations: The Federal rules restrict any use of the information to criminally investigate or prosecute any alcohol or drug abuse patient.[facility] the event this information is protected by the Federal Confidentiality of Alcohol and Drug Abuse Patient Records regulations: The Federal rules restrict any use of the information to criminally investigate or prosecute any alcohol or drug abuse patient.[facility] the event this information is protected by the Federal Confidentiality of Alcohol and Drug Abuse Patient Records regulations: The Federal rules restrict any use of the information to criminally investigate or prosecute any alcohol or drug abuse patient.[facility] the event this information is protected by the Federal Confidentiality of Alcohol and Drug Abuse Patient Records regulations: The Federal rules restrict any use of the information to criminally investigate or prosecute any alcohol or drug abuse patient.[facility] the event this information is protected by the Federal Confidentiality of Alcohol and Drug Abuse Patient Records regulations: The Federal rules restrict any use of the information to criminally investigate or prosecute any alcohol or drug abuse patient.[facility] the event this information is protected by the Federal Confidentiality of Alcohol and Drug Abuse Patient Records regulations: The Federal rules restrict any use of the information to criminally investigate or prosecute any alcohol or drug abuse patient.[facility] the event this information is protected by the Federal Confidentiality of Alcohol and Drug Abuse Patient Records regulations: The Federal rules restrict any use of the information to criminally investigate or prosecute any alcohol or drug abuse patient.[facility] the event this information is protected by the Federal Confidentiality of Alcohol and Drug Abuse Patient Records regulations: The Federal rules restrict any use of the information to criminally investigate or prosecute any alcohol or drug abuse patient.[facility] HospitalIn the event this information is protected by the Federal Confidentiality of Alcohol and Drug Abuse Patient Records regulations: The Federal rules restrict any use of the information to criminally investigate or prosecute any alcohol or drug abuse patient.[facility] HospitalIn the event this information is protected by the Federal Confidentiality of Alcohol and Drug Abuse Patient Records regulations: The Federal rules restrict any use of the information to criminally investigate or prosecute any alcohol or drug abuse patient.[facility] HospitalIn the event this information is protected by the Federal Confidentiality of Alcohol and Drug Abuse Patient Records regulations: The Federal rules restrict any use of the information to criminally investigate or prosecute any alcohol or drug abuse patient.[facility] HospitalIn the event this information is protected by the Federal Confidentiality of Alcohol and Drug Abuse Patient Records regulations: The Federal rules restrict any use of the information to criminally investigate or prosecute any alcohol or drug abuse patient.[facility] HospitalIn the event this information is protected by the Federal Confidentiality of Alcohol and Drug Abuse Patient Records regulations: The Federal rules restrict any use of the information to criminally investigate or prosecute any alcohol or drug abuse patient.[facility] HospitalIn the event this information is protected by the Federal Confidentiality of Alcohol and Drug Abuse Patient Records regulations: The Federal rules restrict any use of the information to criminally investigate or prosecute any alcohol or drug abuse patient.[facility] HospitalIn the event this information is protected by the Federal Confidentiality of Alcohol and Drug Abuse Patient Records regulations: The Federal rules restrict any use of the information to criminally investigate or prosecute any alcohol or drug abuse patient.[facility] HospitalIn the event this information is protected by the Federal Confidentiality of Alcohol and Drug Abuse Patient Records regulations: The Federal rules restrict any use of the information to criminally investigate or prosecute any alcohol or drug abuse patient.[facility] HospitalIn the event this information is protected by the Federal Confidentiality of Alcohol and Drug Abuse Patient Records regulations: The Federal rules restrict any use of the information to criminally investigate or prosecute any alcohol or drug abuse patient.[facility] HospitalIn the event this information is protected by the Federal Confidentiality of Alcohol and Drug Abuse Patient Records regulations: The Federal rules restrict any use of the information to criminally investigate or prosecute any alcohol or drug abuse patient.[facility] HospitalIn the event this information is protected by the Federal Confidentiality of Alcohol and Drug Abuse Patient Records regulations: The Federal rules restrict any use of the information to criminally investigate or prosecute any alcohol or drug abuse patient.[facility] HospitalIn the event this information is protected by the Federal Confidentiality of Alcohol and Drug Abuse Patient Records regulations: The Federal rules restrict any use of the information to criminally investigate or prosecute any alcohol or drug abuse patient.[facility] HospitalIn the event this information is protected by the Federal Confidentiality of Alcohol and Drug Abuse Patient Records regulations: The Federal rules restrict any use of the information to criminally investigate or prosecute any alcohol or drug abuse patient.[facility] HospitalIn the event this information is protected by the Federal Confidentiality of Alcohol and Drug Abuse Patient Records regulations: The Federal rules restrict any use of the information to criminally investigate or prosecute any alcohol or drug abuse patient.[facility] HospitalIn the event this information is protected by the Federal Confidentiality of Alcohol and Drug Abuse Patient Records regulations: The Federal rules restrict any use of the information to criminally investigate or prosecute any alcohol or drug abuse patient.[facility] HospitalIn the event this information is protected by the Federal Confidentiality of Alcohol and Drug Abuse Patient Records regulations: The Federal rules restrict any use of the information to criminally investigate or prosecute any alcohol or drug abuse patient.[facility] HospitalIn the event this information is protected by the Federal Confidentiality of Alcohol and Drug Abuse Patient Records regulations: The Federal rules restrict any use of the information to criminally investigate or prosecute any alcohol or drug abuse patient.[facility] HospitalIn the event this information is protected by the Federal Confidentiality of Alcohol and Drug Abuse Patient Records regulations: The Federal rules restrict any use of the information to criminally investigate or prosecute any alcohol or drug abuse patient.[facility] HospitalIn the event this information is protected by the Federal Confidentiality of Alcohol and Drug Abuse Patient Records regulations: The Federal rules restrict any use of the information to criminally investigate or prosecute any alcohol or drug abuse patient.[facility] HospitalIn the event this information is protected by the Federal Confidentiality of Alcohol and Drug Abuse Patient Records regulations: The Federal rules restrict any use of the information to criminally investigate or prosecute any alcohol or drug abuse patient.[facility] HospitalIn the event this information is protected by the Federal Confidentiality of Alcohol and Drug Abuse Patient Records regulations: The Federal rules restrict any use of the information to criminally investigate or prosecute any alcohol or drug abuse patient.[facility] HospitalIn the event this information is protected by the Federal Confidentiality of Alcohol and Drug Abuse Patient Records regulations: The Federal rules restrict any use of the information to criminally investigate or prosecute any alcohol or drug abuse patient.[facility] HospitalIn the event this information is protected by the Federal Confidentiality of Alcohol and Drug Abuse Patient Records regulations: The Federal rules restrict any use of the information to criminally investigate or prosecute any alcohol or drug abuse patient.[facility] HospitalIn the event this information is protected by the Federal Confidentiality of Alcohol and Drug Abuse Patient Records regulations: The Federal rules restrict any use of the information to criminally investigate or prosecute any alcohol or drug abuse patient.[facility] HospitalIn the event this information is protected by the Federal Confidentiality of Alcohol and Drug Abuse Patient Records regulations: The Federal rules restrict any use of the information to criminally investigate or prosecute any alcohol or drug abuse patient.[facility] HospitalIn the event this information is protected by the Federal Confidentiality of Alcohol and Drug Abuse Patient Records regulations: The Federal rules restrict any use of the information to criminally investigate or prosecute any alcohol or drug abuse patient.[facility]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
--- NOTE | 2023-09-28 07:50 | RAD_ITS ---
INDICATION: TRANSFORAMINAL EPIDURAL INJECTION L4,L5,S1, EXAMINATION/TECHNIQUE: X-RAY - XR Spine Lumbar 2 or 3 Views COMPARISON: No relevant prior comparison study available FINDINGS: 3 views of the lower lumbar spine were obtained on a C-arm for transforaminal epidural injection. The examination was performed for documentation only and not for diagnostic purposes. The fluoroscopy time was 17 seconds. Radiation dosage is 3.45 mGy. RAD/Lumbar Spine 2 or 3 Views IMPRESSION: Intraprocedural exam as described above. Electronically Signed: Nathan Kendrick MD at 9:19 EST ,
[2023-09-28] MEDS: Lactated Ringers 1,000 ML 15 ML IV (08:04)
[2023-09-28 08:05] VITALS: BP 167/74; PULSE 76; RESP 16; TEMP 36.4; O2SAT 99; BMI 25.1
[2023-09-28] MEDS: Lidocaine 1% (5 ml sdv) 5 ML Vial (08:45)
[2023-09-28] MEDS: MethylPREDNISolone Acetate 80 MG/ML Vial (08:45)
[2023-09-28 08:55] VITALS: BP 144/114; BP 167/74; PULSE 68; RESP 16; TEMP 36.1; O2SAT 97
--- NOTE | 2023-09-28 08:56 | PCM.OPRPT ---
Report of Operation Date of Procedure: 09/28/23 Description of Surgical Findings:: PREOPERATIVE DIAGNOSES: 1. Lumbosacral radiculopathy. 2. Lumbosacral degenerative disk disease. 3. Lumbosacral spinal stenosis. POSTOPERATIVE DIAGNOSES: 1. Lumbosacral radiculopathy. 2. Lumbosacral degenerative disk disease. 3. Lumbosacral spinal stenosis. PROCEDURE PERFORMED: Right-sided lumbar transforaminal epidural steroid injection, L4-5, L5-S1. ANESTHESIA: MAC. BLOOD LOSS: Minimal. COMPLICATIONS: None. DESCRIPTION OF PROCEDURE: History and physical of today was reviewed. Risks and benefits of the procedure were explained. The patient understood and agreed to proceed. Informed consent was obtained. IV inserted per routine protocol. The patient was taken to the operating room and placed in the prone position with a pillow positioned underneath the abdomen. The right side of the lower back was prepped and draped in a sterile fashion using iodine x3. Under fluoroscopy guidance on oblique view, the L4-S1 vertebral bodies were visualized. The skin and subcutaneous tissue was anesthetized with approximately 5 mL of 1% lidocaine using a 25-gauge regular needle. Under direct visualization with fluoroscopy at approximately 35-degree angle, starting on the right L4 ending on the right L5, using a 22-gauge 3.5-inch spinal needle, the needle was advanced via the skin. The tip of the needle was maneuvered and directed towards the inferior and medial gutter of the transverse process at the superiormost aspect of the neural foramen. Once the tip of the needle was at the vicinity of the foramen, after negative aspiration for blood or CSF, a total of 1 mL of contrast was injected in divided doses between both levels to confirm correct placement of the needle as well as medial spread. The confirmation was obtained on AP as well as lateral view. After repeated negative aspiration and confirmation on AP as well as lateral view, a total of 6 mL of preservative-free 0.25% Marcaine with 80 mg of Depo-Medrol was injected in divided doses between both levels. The needles were then removed intact. The patient experienced no sign or symptoms of intrathecal or intravascular injection. The patient experienced no paresthesia. The procedure was completed without any apparent difficulty or any complications. The patient appeared to tolerate it well. ASSESSMENT AND PLAN: This is an 83-year-old female with lumbosacral radiculopathy, lumbosacral degenerative disk disease, and lumbosacral spinal stenosis, status post right-sided lumbar transforaminal epidural steroid injection at L4-5, L5-S1. The patient will continue her current medications. The patient will follow up in approximately 2 weeks for reevaluation.
[2023-09-28 09:00] VITALS: BP 127/59; BP 167/74; PULSE 68; RESP 16; O2SAT 98
[2023-09-28 09:05] VITALS: BP 129/106; BP 167/74; PULSE 62; RESP 16; TEMP 36.3; O2SAT 99
[2023-09-28 09:28] VITALS: BP 167/74
== END 2023-09-28 09:53 | disposition home or self-care (01) ==
LOC: SDC 07:29 → AC 07:30
PROVIDERS: Referring Provider Anesthesiology Pain Medicine; Visit Provider Anesthesiology Pain Medicine
PROC: 3E0S3BZ Introduction of Anesthetic Agent into Epidural Space, Percutaneous Approach (ICD-10-PCS; principal; 2023-09-28 08:45)
DX: M51.17 Intervertebral disc disorders with radiculopathy, lumbosacral region (principal); M48.07 Spinal stenosis, lumbosacral region; I25.10 Atherosclerotic heart disease of native coronary artery without angina pectoris; I10 Essential (primary) hypertension; E78.00 Pure hypercholesterolemia, unspecified; H91.93 Unspecified hearing loss, bilateral; Z97.4 Presence of external hearing-aid; Z79.899 Other long term (current) drug therapy
CPT/HCPCS: 01992; 64483; 72100; J7120

== ENCOUNTER 2024-02-08 06:14 | Day surgery (SDC) | payer MEDICARE, SELFPAY ==
[2024-02-08] VITALS (8 sets, daily range): BP systolic 82–147; BP diastolic 38–74; PULSE 61–72; RESP 16; TEMP 36.2–36.6; O2SAT 96–99; BMI 26.6
--- NOTE | 2024-02-08 06:30 | RAD_ITS ---
STUDY: X-RAY - LUMBAR SPINE REASON FOR EXAM: Female, 84 years old. RIGHT RFA L4,L5,S1 TECHNIQUE: 3 view(s) of the lumbar spine were obtained. COMPARISON: None FINDINGS: Fluoroscopy of the lumbar spine was utilized for during nerve block. . RAD/Lumbar Spine 2 or 3 Views IMPRESSION: Fluoroscopy of the lumbar spine for nerve block. Electronically Signed: Calin Oro MD at 17:26 EDT ,
[2024-02-08] MEDS: Lactated Ringers 1,000 ML 15 ML IV (06:35)
--- NOTE | 2024-02-08 07:07 | PCM.PRE.AN2 ---
ASA Classification* ASA Classification ASA Classification: 2 Assessment & Plan Anesthesia* Anesthesia Assessment Anesthesia Assessment: Discussed sedation and/or anesthesia options, risks, benefits, and alternatives with patient/parents/legal guardian/POA. Questions invited. The patient/parents/legal guardian/POA seems to understand and agrees to proceed with anesthesia plan. Reviewed the physical assessment, medical history, allergy history and patient home medications list prior to surgery/procedure/anesthetic and documented any changes. Performed airway and anesthesia risk assessments. Anesthesia Type Anesthesia Type: MAC (see written pre anesthesia record for full assessment) Anesthesia Focused Assessment* Temperature: 97.8 F Pulse Rate: 72 Blood Pressure: 147/74 Respiratory Rate: 16 Pulse Ox: 99 Airway Assessment Mouth opens: >3 cm Mallampati Score: II Focused Labs Anesthesia Preop lab: CBC CHEMISTRY COAG Pre-Assessment Diagnosis/Proposed Procedure Planned Operative Procedure(s): R LUMBAR RADIOFREQUENCY ABLATION L4,L5,S1 Anesthesia History Anesthesia History - commercial housekeeper: Anesthesia History - commercial housekeeper Hx Hospitalization No 02/04/24 12:43 Any Problems With Anesthesia No 02/04/24 12:43 Cholinesterase deficiency No 02/04/24 12:43 You/Your Family Experience No 02/04/24 12:43 fever (hyperthermia) with Relationship Recent Exposure to Contagious No 02/08/24 06:32 Disease Does patient have nerve No 02/04/24 12:43 stimulator Patient instructed to have device shut off --Does patient have Pacemaker No 02/08/24 06:32 or ICD? When Was Last Pacemaker Check QUESTION #4 FULL TEXT: You/Your Family Experience fever (hyperthermia) with Anesthesia Last Oral Intake Last Oral intake: Last Oral Intake NPO since 16:00 02/08/24 06:32 Meds taken in AM with sips of water? Meds patient instructed to take am of surgery PONV PONV - commercial housekeeper: PONV - commercial housekeeper Female Yes 02/04/24 12:43 HX of Motion Sickness No 02/04/24 12:43 HX of N/V After Surgery No 02/04/24 12:43 Non-Smoker No 02/04/24 12:43 Duration of Surgery greater No 02/04/24 12:43 than 60 minutes Number of Risk Factors 1 02/04/24 12:43 PONV Score Low Risk 02/04/24 12:43 Height & Weight Height & Weight: Anesthesia: Height & Weight Height 5 ft 02/08/24 06:32 Weight: 62 kg 02/08/24 06:32 Body Mass Index (BMI) 26.6 02/08/24 06:32 Respiratory Assessment Respiratory Assessment - commercial housekeeper: Respiratory Tract Infection Hx - commercial housekeeper Hx Respiratory Tract Infection No 02/04/24 12:43 STOP Sleep Apnea STOP Sleep Apnea - commercial housekeeper: STOP Sleep Apnea - commercial housekeeper Hx Hypertension Yes 02/04/24 12:43 Hx Sleep Apnea No 02/04/24 12:43 CPAP No 07/07/23 09:42 BIPAP Do you snore loudly (louder No 02/04/24 12:43 than talking or can be heard Do you often feel tired/ No 02/04/24 12:43 fatigued/ sleepy during daytime? Has anyone observed you stop No 02/04/24 12:43 breathing during sleep? STOP Results Negative 02/04/24 12:43 QUESTION #5 FULL TEXT : Do you snore loudly (louder than talking or can be heard through closed doors)? 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 Specify any problems Hx of Preganancy in last 3 No 02/04/24 12:43 Months Nurse Filling Out Transfusion [facility] 02/04/24 12:43 & Questions: Date: 02/04/24 02/04/24 12:43 Time: 12:52 02/04/24 12:43 Patient unable to answer at this time (ie. confused, unrespo /Reproduction History /Reproductive History - commercial housekeeper: /Reproductive Hx- commercial housekeeper Hx Now No 02/04/24 12:43 Gestational Age (in weeks): EDC: Hx Hx Para Hx Section SAB Active Medications Active Medications: Current Medications Generic Name Dose Route Start Last Admin Trade Name Freq PRN Reason Stop Dose Admin Lactated Ringer's 1,000 mls @ 15 mls/hr 02/08/24 06:30 02/08/24 06:35 IV 15 mls/hr .Q48H CARLOS Administration PFSH Medical History Gastric reflux Depression Wears glasses Wears hearing aid Loss of hearing High cholesterol Back pain GERD (gastroesophageal reflux disease) Non-smoker Hypertension Varicose veins of both legs with edema History of edema Home Medications ?Medication ?Instructions ?Recorded ?Last Taken ?Type acetaminophen 500 mg tablet 500 mg PO PRN PRN Pain Or Fever 04/23/20 Unknown History amlodipine 2.5 mg tablet 2.5 mg PO DAILY 04/23/20 01/12/22 History atorvastatin 20 mg tablet 20 mg PO QHS 04/23/20 01/12/22 History omeprazole 40 mg capsule,delayed 40 mg PO DAILY 04/23/20 01/12/22 History release ramipril 5 mg capsule 5 mg PO DAILY 04/23/20 02/08/24 History triamterene 37.5 1 cap PO DAILY 04/23/20 01/12/22 History mg-hydrochlorothiazide 25 mg capsule aspirin 81 mg tablet 81 mg PO DAILY 10/27/22 Unknown History Allergy/AdvReac Type Severity Reaction Status Date / Time morphine Allergy Hives Verified 02/08/24 06:31 meloxicam AdvReac Unknown PT UNSURE Verified 02/08/24 06:31 OF REACTION hydrocodone (From Vicodin) AdvReac Nausea Verified 02/08/24 06:31 Surgical History History of surgery History of cataract extraction with lens replacement History of carpal tunnel release History of section Social History Smoking Status: Never smoker Review of Systems (Anesthesia) ROS Narrative System reviewed and no additional complaints, except as documented.
[2024-02-08] MEDS: Lidocaine 1% (30 ml sdv) 30 ML Vial (07:40)
[2024-02-08] MEDS: MethylPREDNISolone Acetate 40 MG/ML Vial (07:40)
--- NOTE | 2024-02-08 07:51 | PCM.OPRPT ---
Report of Operation Date of Procedure: 02/08/24 Pre-Operative Diagnosis: Lumbosacral spondylosis, lumbosacral degenerative disc disease, lumbar facet arthropathy Post-Operative Diagnosis: Lumbosacral spondylosis, lumbosacral degenerative disc disease, lumbar facet arthropathy Surgery/Procedure Performed:: Right-sided lumbar radiofrequency ablation of the medial branch L4, L5, S1 Type of Anesthesia: MAC Estimated Blood Loss (mL): Minimal Description of Procedure: History and physical today was reviewed. Risks and benefits of procedure explained. The patient understood, agreed to the procedure and informed consent was obtained. IV inserted per routine protocol. The patient was taken to the operating room, placed in the prone position with a pillow positioned underneath the abdomen. The right side of the lower back was prepped and draped in a sterile fashion using iodine x 3. Under fluoroscopy guidance, on an oblique view, the L3 through S1 vertebral bodies were visualized. The skin and subcutaneous tissue was anesthetized with approximately 10 mL of 1% lidocaine using a 25-gauge regular needle. Under direct visualization with fluoroscopy at approximately 25-degree angle, starting on the right L3, ending on the right S1 passing through the L4-L5 using a 20-gauge 15 cm with a 10 mm curved active tip radiofrequency ablation needle the needle passed through the skin. The tip of the needle was maneuvered and directed towards the superior and medial gutter of the transverse process at the vicinity of the medial branch. Once the tip of the needle was in contact with the bone, the needle pulled approximately 2 mm up the bone. The stylet of each needle was then removed. After negative aspiration of blood with CSF and confirmation of AP as well as oblique view, radiofrequency ablation probe was then inserted at each level. Impedance was then recorded at L3 to be 244, at L4 222, at L5 334, at S1 295 ohm. Motor-evoked potential was then initiated to 1.5 volt without any motor response at each corresponding level. The probe was then removed intact and a total of 6 mL preservative-free 1% lidocaine was injected in divided doses between those 4 levels after negative aspiration of blood with CSF. The radiofrequency ablation probe was then reinserted after confirmation of AP, oblique as well as lateral view. Radiofrequency ablation was then initiated to 80 degrees Celsius for 90 seconds at each level. Once concluded, the probe was then removed intact and a total of 6 mL of preservative-free 0.25% Marcaine with 40 mg Depo-Medrol was injected in divided doses between those 4 levels. The needles were then removed intact. The patient experienced no signs or symptoms of intrathecal, intravascular injection. The patient experienced no paraesthesia. The procedure was completed without any apparent difficulty, any complication. The patient appeared to tolerate well. Sensory as well as motor exam was unchanged from prior to procedure. ASSESSMENT AND PLAN: This is an 84-year-old female with lumbosacral spondylosis, lumbosacral degenerative disc disease, lumbar facet arthropathy, status post right-sided radiofrequency ablation of the medial branch L3 through S1. The patient will continue her current medications. The patient will follow up in approximately 2 weeks for reevaluation. Complications None
--- NOTE | 2024-02-08 08:00 | PCM.POST.ANE ---
Anesthesia: Postop Eval I Current Vital Signs Temperature: 97.3 F Pulse Rate: 62 Blood Pressure: 87/38 Respiratory Rate: 16 Pulse Ox: 98 Oxygen Delivery Method: Room Air Assessment Airway patent: Yes Spontaneous unlabored respirations: Yes Mental status: Asleep nausea: No Vomiting: No Anesthesia Complication: Yes Anesthesia Complication Comment:: hypotention Fluid Hydration Crystalloid volume administer (ml): 600 Total IV fluid infused: 600 Progress Note Anesthesia document: Postop Eval 1 completed: Yes
--- NOTE | 2024-02-08 08:14 | PCM.POSTANE2 ---
Anesthesia Postop Eval I Sum Postop Eval Completion status Anesthesia document: Postop Eval 1 completed: Yes Anesthesia Postop Eval I Summary Anesthesia Postop Eval I Summary: Anesthesia Postop Eval I: Assessment Summary Airway patent Yes 02/08/24 08:02 [email or web address] Spontaneous unlabored Yes 02/08/24 08:02 [email or web address] respirations Mental status Asleep 02/08/24 08:02 [email or web address] nausea No 02/08/24 08:02 [email or web address] Vomiting No 02/08/24 08:02 [email or web address] Anesthesia Postop Eval I: Fluid Summary Crystalloid volume administer 600 02/08/24 08:02 [email or web address] (ml) Colloids volume administered ( ml) Blood Product volume administered (ml) Total IV fluid infused 600 02/08/24 08:02 [email or web address] Anesthesia Postop Eval I: Summary Notes Anesthesia Complication Yes 02/08/24 08:02 [email or web address] Anesthesia Complication hypotention 02/08/24 08:02 [email or web address] Comment: Post-operative progress note Anesthesia: Postop Eval II Evaluation Mental status: Awake Pain Level: 0 nausea: No Vomiting: No
== END 2024-02-08 08:46 | disposition home or self-care (01) ==
LOC: SDC 06:14 → AC 06:15
PROVIDERS: Referring Provider Anesthesiology Pain Medicine; Visit Provider Anesthesiology Pain Medicine
PROC: (CPT 64636; principal; 2024-02-08 07:15)
DX: M47.817 Spondylosis without myelopathy or radiculopathy, lumbosacral region (principal); M51.37 Other intervertebral disc degeneration, lumbosacral region; M46.96 Unspecified inflammatory spondylopathy, lumbar region; K21.9 Gastro-esophageal reflux disease without esophagitis; E78.00 Pure hypercholesterolemia, unspecified; I10 Essential (primary) hypertension; Z79.82 Long term (current) use of aspirin; Z79.899 Other long term (current) drug therapy
CPT/HCPCS: 64636; 64635; 01992; 72100; 76000; J7120; J2405

== ENCOUNTER 2024-10-10 11:20 | Day surgery (SDC) | payer MEDICARE, SELFPAY ==
[2024-10-10] VITALS (7 sets, daily range): BP systolic 117–158; BP diastolic 61–86; PULSE 66–70; RESP 16; TEMP 36.2–36.6; O2SAT 99–100; BMI 26.9
--- NOTE | 2024-10-10 11:30 | RAD_ITS ---
PROCEDURE: Fluoroscopy use. 10/10/2024 REASON FOR EXAM: CAUDAL BLOCK TECHNIQUE: 3 intraoperative images were obtained during caudal nerve block. 14.1 seconds of fluoroscopic time utilized. COMPARISON: None. FINDINGS: 3 intraoperative spot images were obtained during caudal nerve block. On the provided images, contrast material and a needle tip project over the sacrococcygeal junction. RAD/Fluor Guidance for Spine Inj IMPRESSION: Documentation fluoroscopy used during caudal nerve block. Please see the opera tive note for details. Reading Location: [facility]
--- NOTE | 2024-10-10 12:17 | PRE.ANES_ITS ---
ASA Classification* ASA Classification ASA Classification: 3 Assessment & Plan Anesthesia* Anesthesia Assessment Anesthesia Assessment: Discussed sedation and/or anesthesia options, risks, benefits, and alternatives with patient/parents/legal guardian/POA. Questions invited. The patient/parents/legal guardian/POA seems to understand and agrees to proceed with anesthesia plan. Reviewed the physical assessment, medical history, allergy history and patient home medications list prior to surgery/procedure/anesthetic and documented any changes. Performed airway and anesthesia risk assessments. Anesthesia Type Anesthesia Type: MAC History Source History Obtained from:: Patient and Chart Anesthesia Focused Assessment* Temperature: 97.8 F Pulse Rate: 70 Blood Pressure: 158/86 Respiratory Rate: 16 Pulse Ox: 100 Oxygen Delivery Method: Room Air Airway Assessment Mouth opens: 2 cm Mallampati Score: IV Teeth Condition: Intact Focused Labs Anesthesia Preop lab: CBC CHEMISTRY COAG Pre-Assessment Diagnosis/Proposed Procedure Planned Operative Procedure(s): Caudal injection. Anesthesia History Anesthesia History - nurse general duty: Anesthesia History - nurse general duty Hx Hospitalization No 02/04/24 12:43 Any Problems With Anesthesia No 02/04/24 12:43 Cholinesterase deficiency No 02/04/24 12:43 You/Your Family Experience No 02/04/24 12:43 fever (hyperthermia) with Relationship Recent Exposure to Contagious No 10/10/24 12:07 Disease Does patient have nerve No 02/04/24 12:43 stimulator Patient instructed to have device shut off --Does patient have Pacemaker No 10/10/24 12:07 or ICD? When Was Last Pacemaker Check QUESTION #4 FULL TEXT: You/Your Family Experience fever (hyperthermia) with Anesthesia Last Oral Intake Last Oral intake: Last Oral Intake NPO since 00:00 10/10/24 12:07 Meds taken in AM with sips of No 10/10/24 12:07 water? Meds patient instructed to take am of surgery PONV PONV - nurse general duty: PONV - nurse general duty Female HX of Motion Sickness HX of N/V After Surgery Non-Smoker Duration of Surgery greater than 60 minutes Number of Risk Factors PONV Score Height & Weight Height & Weight: Anesthesia: Height & Weight Height 5 ft 10/10/24 12:07 Weight: 62.6 kg 10/10/24 12:07 Body Mass Index (BMI) 26.9 10/10/24 12:07 Respiratory Assessment Respiratory Assessment - nurse general duty: Respiratory Tract Infection Hx - nurse general duty Hx Respiratory Tract Infection No 02/04/24 12:43 STOP Sleep Apnea STOP Sleep Apnea - nurse general duty: STOP Sleep Apnea - nurse general duty Hx Hypertension Yes 02/04/24 12:43 Hx Sleep Apnea No 02/08/24 08:10 CPAP No 02/08/24 07:52 BIPAP Do you snore loudly (louder than talking or can be heard Do you often feel tired/ fatigued/ sleepy during daytime? Has anyone observed you stop breathing during sleep? STOP Results QUESTION #5 FULL TEXT : Do you snore loudly (louder than talking or can be heard through closed doors)? Tobacco Use History Tobacco Use History - nurse general duty: Tobacco Use History - nurse general duty Tobacco Use Smoking Status Never smoker 02/04/24 12:43 Hx Tobacco Use No 02/04/24 12:43 Years Smoking Packs Smoked per Day Smoking Cessation Date was within the last 15 years Hx Smoking Cessation Date Hx Smoking Cessation Counseling Hematologic Medial History Hematologic Hx - nurse general duty: Hematologic Medical Hx - half section ironer Hx of Blood Transfusion Hx of Transfusion in last 3 Months Date of Last Transfusion (if within last 3 months) Ever experience any problems with transfusion(s)? Specify any problems Hx of Preganancy in last 3 Months Nurse Filling Out Transfusion & Questions: Date: Time: Patient unable to answer at this time (ie. confused, unrespo /Reproduction History /Reproductive History - nurse general duty: /Reproductive Hx- nurse general duty Hx Now Gestational Age (in weeks): EDC: Hx Hx Para Hx Section SAB PFSH Medical History Gastric reflux Depression Wears glasses Wears hearing aid Loss of hearing High cholesterol Back pain GERD (gastroesophageal reflux disease) Non-smoker Hypertension Varicose veins of both legs with edema History of edema Home Medications ?Medication ?Instructions ?Recorded ?Last Taken ?Type acetaminophen 500 mg tablet 500 mg PO PRN PRN Pain Or Fever 04/23/20 10/09/24 History amlodipine 2.5 mg tablet 2.5 mg PO DAILY 04/23/20 History atorvastatin 20 mg tablet 20 mg PO QHS 04/23/20 History omeprazole 40 mg capsule,delayed 40 mg PO DAILY 10/09/24 History release ramipril 5 mg capsule 5 mg PO DAILY 04/23/2010/09 History triamterene 37.5 1 cap PO DAILY 04/23/2009/24 History mg-hydrochlorothiazide 25 mg capsule aspirin 81 mg tablet 81 mg PO DAILY 10/27/2209/24 History Allergy/AdvReac Type Severity Reaction Status Date / Time morphine Allergy Hives Verified 10/10/24 12:09 meloxicam AdvReac Unknown PT UNSURE Verified 10/10/24 12:09 OF REACTION hydrocodone (From Vicodin) AdvReac Nausea Verified 10/10/24 12:09 Surgical History History of surgery History of cataract extraction with lens replacement History of carpal tunnel release History of section Social History Smoking Status: Never smoker Review of Systems (Anesthesia) ROS Narrative System reviewed and no additional complaints, except as documented.
[2024-10-10] MEDS: MethylPREDNISolone Acetate 80 MG/ML Vial (12:32)
[2024-10-10] MEDS: Lidocaine 1% (5 ml sdv) 5 ML Vial (12:33)
[2024-10-10] MEDS: 0.9% Normal Saline (Pres. free 10 ML Vial (12:33)
--- NOTE | 2024-10-10 12:47 | PCM.OPRPT ---
Operative Report (Standard) Operative Information Date of Procedure: 10/10/24 Pre-Operative Diagnosis: 1 Post-Operative Diagnosis: 1 Surgery/Procedure Performed: 1 electromedical equipment repairer: No Type of Anesthesia: Local MAC RN Documented Start/Stop Times: Operation Date: 10/10/24 13:00 Case Time Into Pre-Op 10/10/24 11:38 Anesthesia Start 10/10/24 12:25 Into Room 10/10/24 12:25 Procedure Start 10/10/24 12:32 Procedure End 10/10/24 12:39 Anesthesia End 10/10/24 12:42 Out of Room 10/10/24 12:42 Procedure Start Time: 12:47 Procedure Stop Time: 12:47 Select all DRAINS/GRAFTS/IMPLANTS that apply: None Estimated Blood Loss: 1 Specimen collected: No Description of surgery: PREOPERATIVE DIAGNOSES: 1.Lumbosacral radiculopathy. 2.Lumbosacral degenerative disk disease. 3.Lumbosacral spinal stenosis. POSTOPERATIVE DIAGNOSES: 1.Lumbosacral radiculopathy. 2.Lumbosacral degenerative disk disease. 3.Lumbosacral spinal stenosis. PROCEDURE PERFORMED: Diagnostic/therapeutic caudal epidural steroid injection under fluoroscopic guidance ANESTHESIA: MAC. BLOOD LOSS: Minimal. COMPLICATIONS: None. DESCRIPTION OF PROCEDURE: History and physical of today was reviewed. Risks and benefits of the procedure were explained. The patient understood and agreed to proceed. Informed consent was obtained. IV inserted per routine protocol. The patient was taken to the operating room and placed in the prone position with a pillow positioned underneath the abdomen. The lower back and tailbone area was prepped and draped in a sterile fashion using iodine x3. Under fluoroscopy guidance on a lateral view, the caudal space was identified. The skin and subcutaneous tissue was anesthetized with approximately 3 mL of 1% lidocaine using a 25-gauge regular needle. Under direct visualization with fluoroscopy, using a 22-gauge 3-1/2-inch spinal needle, the needle was advanced via the skin through the sacral hiatus. The tip of the needle was passed through the sacrococcygeal ligament and advanced to approximately S4 area. After negative aspiration of blood or CSF, a total of 3 mL of contrast was injected to confirm correct placement of the needle as well as cephalad spread. The spread was followed to approximately L5 area. After confirmation on AP as well as lateral view and repeated negative aspiration, a total of 15 mL of preservative-free 0.125% Marcaine with 80 mg of Depo-Medrol was injected easily. The needle was then removed intact. The patient experienced no sign or symptoms of intrathecal or intravascular injection. The patient experienced no paresthesia. The procedure was completed without any apparent difficulty or any complications. The patient appeared to tolerate it well. ASSESSMENT AND PLAN: This is an 84-year-old female with lumbosacral radiculopathy, lumbosacral degenerative disk disease, and lumbosacral spinal stenosis, status post diagnostic/therapeutic caudal epidural steroid injection under fluoroscopic guidance. The patient will continue her current medications. The patient will follow up in approximately 2 weeks for reevaluation. Surgical Findings: 1 Complications Complications: No Admit VTE Documentation VTE Present on Admission: No VTE Mechan Device Prophylaxis: None VTE Pharm Prophylaxis ordered?: No
--- NOTE | 2024-10-10 12:51 | PCM.POST.ANE ---
Anesthesia: Postop Eval I Current Vital Signs Temperature: 97.4 F Pulse Rate: 70 Blood Pressure: 117/61 Respiratory Rate: 16 Pulse Ox: 99 Oxygen Delivery Method: Room Air Assessment Airway patent: Yes Spontaneous unlabored respirations: Yes Mental status: Awake nausea: No Vomiting: No Anesthesia Complication: No Fluid Hydration Crystalloid volume administer (ml): 10 Total IV fluid infused: 10 Progress Note Anesthesia document: Postop Eval 1 completed: Yes
--- NOTE | 2024-10-10 17:49 | POSTOPAN2_ITS ---
Anesthesia Postop Eval I Sum Postop Eval Completion status Anesthesia document: Postop Eval 1 completed: Yes Anesthesia Postop Eval I Summary Anesthesia Postop Eval I Summary: Anesthesia Postop Eval I: Assessment Summary Airway patent Yes 10/10/24 12:51 ARCHITECTURAL ADMINISTRATIVE ASSISTANT.[email or web address] Spontaneous unlabored Yes 10/10/24 12:51 ARCHITECTURAL ADMINISTRATIVE ASSISTANT.LMIL respirations Mental status Awake 10/10/24 12:51 ARCHITECTURAL ADMINISTRATIVE ASSISTANT.LMIL nausea No 10/10/24 12:51 ARCHITECTURAL ADMINISTRATIVE ASSISTANT.LMIL Vomiting No 10/10/24 12:51 ARCHITECTURAL ADMINISTRATIVE ASSISTANT.LMIL Anesthesia Postop Eval I: Fluid Summary Crystalloid volume administer 10 10/10/24 12:51 ARCHITECTURAL ADMINISTRATIVE ASSISTANT.LMIL (ml) Colloids volume administered ( ml) Blood Product volume administered (ml) Total IV fluid infused 10 10/10/24 12:51 ARCHITECTURAL ADMINISTRATIVE ASSISTANT.LMIL Anesthesia Postop Eval I: Summary Notes Anesthesia Complication No 10/10/24 12:51 ARCHITECTURAL ADMINISTRATIVE ASSISTANT.LMIL Anesthesia Complication Comment: Post-operative progress note Anesthesia: Postop Eval II Evaluation Mental status: Awake and Calm Pain Level: 2 nausea: No Vomiting: No Complications Anesthesia Complication: No
--- NOTE | 2024-10-10 17:49 | PCM.POSTANE2 ---
Anesthesia Postop Eval I Sum Postop Eval Completion status Anesthesia document: Postop Eval 1 completed: Yes Anesthesia Postop Eval I Summary Anesthesia Postop Eval I Summary: Anesthesia Postop Eval I: Assessment Summary Airway patent Yes 10/10/24 12:51 [email or web address] [email or web address] Spontaneous unlabored Yes 10/10/24 12:51 NUTTER UP.[email or web address] respirations Mental status Awake 10/10/24 12:51 NUTTER UP.[email or web address] nausea No 10/10/24 12:51 NUTTER UP.[email or web address] Vomiting No 10/10/24 12:51 NUTTER UP.[email or web address] Anesthesia Postop Eval I: Fluid Summary Crystalloid volume administer 10 10/10/24 12:51 NUTTER UP.[email or web address] (ml) Colloids volume administered ( ml) Blood Product volume administered (ml) Total IV fluid infused 10 10/10/24 12:51 NUTTER UP.[email or web address] Anesthesia Postop Eval I: Summary Notes Anesthesia Complication No 10/10/24 12:51 NUTTER UP.[email or web address] Anesthesia Complication Comment: Post-operative progress note Anesthesia: Postop Eval II Evaluation Mental status: Awake and Calm Pain Level: 2 nausea: No Vomiting: No Complications Anesthesia Complication: No
== END 2024-10-10 13:46 | disposition home or self-care (01) ==
LOC: SDC 11:29 → AC 12:31
PROVIDERS: Referring Provider Anesthesiology Pain Medicine; Visit Provider Anesthesiology Pain Medicine
PROC: 3E0S3BZ Introduction of Anesthetic Agent into Epidural Space, Percutaneous Approach (ICD-10-PCS; CPT 62282; principal; 2024-10-10 12:55)
DX: M51.17 Intervertebral disc disorders with radiculopathy, lumbosacral region (principal); M48.07 Spinal stenosis, lumbosacral region; I10 Essential (primary) hypertension; E78.00 Pure hypercholesterolemia, unspecified; Z79.899 Other long term (current) drug therapy
CPT/HCPCS: 62323; 64483; 77003; A4216